=== PATIENT | male | born 1960 | race Caucasian/White ===

== ENCOUNTER 2020-08-19 14:05 | Inpatient (IN) ==
--- NOTE | 2020-08-19 14:21 | Emergency Department Note ---
History of Present Illness General Chief complaint: Vertigo Stated complaint: FELL HIT HEAD Time Seen by Provider: 08/19/20 14:07 History of Present Illness Maximum Pain Intensity: 2 This is a 59-year-old male who presents to the emergency department via private vehicle with complaints of "fell and hit head". Patient has a history of esophageal cancer currently on chemotherapy. Last chemotherapy treatment was August 12. Patient notes that secondary to this chemotherapy he notes d ecreased appetite, decreased taste, and also some associated dizziness and just not feeling himself. He notes that when he stands he feels dizzy. He has had laboratory studies done and most recent ANC reported to be 0.17. Patient notes earlier today around 9 AM he was inside his home, and was going to get into bed when he notes that he fell striking the left side of the head. No loss of consciousness. No headache. He does note some mild epigastric discomfort which is consistent with his previous discomfort felt to be related to esophageal cancer/treatment. Current discomfort in that area 09/22. He has been compliant with all medications. When asked if the dizziness is more of a room spinning versus passing out sensation he notes that when he goes to stand and ambulate he notes he cannot walk very far without feeling as though he is going to fall. Home Medications Medication Instructions Recorded Confirmed Type metformin 500 mg tablet 500 mg PO BID #60 tab 07/15/20 08/19/20 Rx apixaban 5 mg tablet 5 mg PO BID 07/23/20 08/19/20 History omeprazole 40 mg PO BID 08/19/20 08/19/20 History Allergies Allergy/AdvReac Type Severity Reaction Status Date / Time No Known Allergies Allergy Verified 08/19/20 15:49 Past Med/Surg History Medical History (Updated 08/19/20 @ 18:[address] DO) Esophageal cancer (04/27/20) 04/2020 GERD (gastroesophageal reflux disease) Hx of benign neoplasm of colon (12/08/14) Hx of type 2 diabetes mellitus (04/23/19) on no medications; diet controlled Surgical History H/O thumb surgery (~1983) left S/P cataract surgery (11/04/02) right and left Family History Mother Diabetes Father Asthma Denies family history of Ovarian cancer Prostate cancer Myocardial infarction Breast cancer Colorectal cancer Social History Smoking Status: Never smoker Second Hand Exposure: No; Hx Alcohol Use: Yes Hx Substance Use: No Preferred Language: Yoruba Communication Ability: Effective Visual Impairment: No Limitations Hearing Ability: Normal Public Health Aides Teacher Required: No Beliefs That Will Affect Care: None marital status: Current Living Situation: Spouse current occupational status: employed 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 [employer] How many Children do You have: 3 How many Children do You have Comment: daughter Tahmina, employed @ [employer] Feels Safe at Home: Yes Childhood Exposure to Second-Hand Smoke: No Diet Comment: mechanical soft, bland caffeine: Yes during the past year weight has: decreased > 10 lbs Dental Care, Regularly: Yes Physical Activity Frequency: Daily Seatbelt Use: always Sunscreen Use: No Assistive Devices: Glasses Review of Systems A total of 10 systems reviewed and were otherwise negative Physical Exam Vital Signs Vital Signs - 24 hr 08/19/20 14:12 08/19/20 14:50 08/19/20 15:00 Temperature 37.1 C Temperature Source Oral Pulse Rate 86 143 H Pulse Rate [Apical] Pulse Rate [Right Finger] 155 H Pulse Rate from SpO2 Sensor Pulse Rhythm [Apical] Pulse Strength [Apical] Respiratory Rate 22 22 Respiratory Effort / Characteristics Non-Labored Respiratory Depth Normal Respiratory Pattern Regular Blood Pressure 101/76 71/59 L Blood Pressure [Right Arm] 88/57 L Blood Pressure Mean 84 64 Blood Pressure Mean [Right Arm] 67 Blood Pressure Position Lying Blood Pressure Position [Right Arm] Pulse Oximetry 97 Oxygen Delivery Method Room Air Room Air Sepsis Recent Fever Within 48 Hours No Sepsis New/Unexplained Change in Mental Status No Sepsis Action Taken by Nursing No Action Required 08/19/20 15:09 08/19/20 15:10 08/19/20 15:15 Temperature Temperature Source Pulse Rate 94 H 165 H 112 H Pulse Rate [Apical] Pulse Rate [Right Finger] Pulse Rate from SpO2 Sensor 94 H 102 H Pulse Rhythm [Apical] Pulse Strength [Apical] Respiratory Rate 17 24 22 Respiratory Effort / Characteristics Respiratory Depth Respiratory Pattern Blood Pressure 81/64 L Blood Pressure [Right Arm] Blood Pressure Mean 73 Blood Pressure Mean [Right Arm] Blood Pressure Position Blood Pressure Position [Right Arm] Pulse Oximetry 96 100 Oxygen Delivery Method Room Air Room Air Room Air Sepsis Recent Fever Within 48 Hours Sepsis New/Unexplained Change in Mental Status Sepsis Action Taken by Nursing 08/19/20 15:16 08/19/20 15:20 08/19/20 15:30 Temperature Temperature Source Pulse Rate 92 H 106 H 108 H Pulse Rate [Apical] Pulse Rate [Right Finger] Pulse Rate from SpO2 Sensor 93 H 100 H 94 H Pulse Rhythm [Apical] Pulse Strength [Apical] Respiratory Rate 23 21 17 Respiratory Effort / Characteristics Respiratory Depth Respiratory Pattern Blood Pressure 90/67 L Blood Pressure [Right Arm] Blood Pressure Mean 69 Blood Pressure Mean [Right Arm] Blood Pressure Position Blood Pressure Position [Right Arm] Pulse Oximetry 100 99 99 Oxygen Delivery Method Room Air Room Air Room Air Sepsis Recent Fever Within 48 Hours Sepsis New/Unexplained Change in Mental Status Sepsis Action Taken by Nursing 08/19/20 15:40 08/19/20 15:45 08/19/20 15:50 Temperature Temperature Source Pulse Rate 101 H 113 H 123 H Pulse Rate [Apical] Pulse Rate [Right Finger] Pulse Rate from SpO2 Sensor 107 H 109 H 114 H Pulse Rhythm [Apical] Pulse Strength [Apical] Respiratory Rate 15 18 27 H Respiratory Effort / Characteristics Respiratory Depth Respiratory Pattern Blood Pressure 81/61 L Blood Pressure [Right Arm] Blood Pressure Mean 72 Blood Pressure Mean [Right Arm] Blood Pressure Position Blood Pressure Position [Right Arm] Pulse Oximetry 99 100 94 Oxygen Delivery Method Room Air Room Air Room Air Sepsis Recent Fever Within 48 Hours Sepsis New/Unexplained Change in Mental Status Sepsis Action Taken by Nursing 08/19/20 16:00 08/19/20 16:01 08/19/20 16:10 Temperature Temperature Source Pulse Rate 115 H 109 H 114 H Pulse Rate [Apical] Pulse Rate [Right Finger] Pulse Rate from SpO2 Sensor 107 H 97 H 98 H Pulse Rhythm [Apical] Pulse Strength [Apical] Respiratory Rate 20 18 18 Respiratory Effort / Characteristics Respiratory Depth Respiratory Pattern Blood Pressure 81/61 L Blood Pressure [Right Arm] Blood Pressure Mean 64 Blood Pressure Mean [Right Arm] Blood Pressure Position Blood Pressure Position [Right Arm] Pulse Oximetry 98 100 98 Oxygen Delivery Method Room Air Room Air Room Air Sepsis Recent Fever Within 48 Hours Sepsis New/Unexplained Change in Mental Status Sepsis Action Taken by Nursing 08/19/20 16:15 08/19/20 16:20 08/19/20 16:28 Temperature Temperature Source Pulse Rate 106 H 142 H 110 H Pulse Rate [Apical] Pulse Rate [Right Finger] Pulse Rate from SpO2 Sensor 109 H 115 H 107 H Pulse Rhythm [Apical] Pulse Strength [Apical] Respiratory Rate 19 20 22 Respiratory Effort / Characteristics Respiratory Depth Respiratory Pattern Blood Pressure 77/61 L 84/67 L Blood Pressure [Right Arm] Blood Pressure Mean 65 77 Blood Pressure Mean [Right Arm] Blood Pressure Position Blood Pressure Position [Right Arm] Pulse Oximetry 97 98 99 Oxygen Delivery Method Room Air Room Air Room Air Sepsis Recent Fever Within 48 Hours Sepsis New/Unexplained Change in Mental Status Sepsis Action Taken by Nursing 08/19/20 16:30 08/19/20 16:31 08/19/20 16:40 Temperature Temperature Source Pulse Rate 113 H 111 H 112 H Pulse Rate [Apical] Pulse Rate [Right Finger] Pulse Rate from SpO2 Sensor 115 H 103 H 103 H Pulse Rhythm [Apical] Pulse Strength [Apical] Respiratory Rate 19 20 18 Respiratory Effort / Characteristics Respiratory Depth Respiratory Pattern Blood Pressure 89/67 L Blood Pressure [Right Arm] Blood Pressure Mean 70 Blood Pressure Mean [Right Arm] Blood Pressure Position Blood Pressure Position [Right Arm] Pulse Oximetry 98 99 97 Oxygen Delivery Method Room Air Room Air Room Air Sepsis Recent Fever Within 48 Hours Sepsis New/Unexplained Change in Mental Status Sepsis Action Taken by Nursing 08/19/20 16:45 08/19/20 16:58 08/19/20 17:00 Temperature Temperature Source Pulse Rate 107 H 130 H 114 H Pulse Rate [Apical] Pulse Rate [Right Finger] Pulse Rate from SpO2 Sensor 99 H 98 H Pulse Rhythm [Apical] Pulse Strength [Apical] Respiratory Rate 18 19 20 Respiratory Effort / Characteristics Respiratory Depth Respiratory Pattern Blood Pressure 82/58 L 98/63 L Blood Pressure [Right Arm] Blood Pressure Mean 71 67 Blood Pressure Mean [Right Arm] Blood Pressure Position Blood Pressure Position [Right Arm] Pulse Oximetry 99 99 Oxygen Delivery Method Room Air Room Air Room Air Sepsis Recent Fever Within 48 Hours Sepsis New/Unexplained Change in Mental Status Sepsis Action Taken by Nursing 08/19/20 17:01 08/19/20 17:10 08/19/20 17:15 Temperature Temperature Source Pulse Rate 118 H 122 H 118 H Pulse Rate [Apical] Pulse Rate [Right Finger] Pulse Rate from SpO2 Sensor 104 H 105 H 106 H Pulse Rhythm [Apical] Pulse Strength [Apical] Respiratory Rate 18 18 18 Respiratory Effort / Characteristics Respiratory Depth Respiratory Pattern Blood Pressure 83/61 L Blood Pressure [Right Arm] Blood Pressure Mean 65 Blood Pressure Mean [Right Arm] Blood Pressure Position Blood Pressure Position [Right Arm] Pulse Oximetry 98 99 98 Oxygen Delivery Method Room Air Room Air Room Air Sepsis Recent Fever Within 48 Hours Sepsis New/Unexplained Change in Mental Status Sepsis Action Taken by Nursing 08/19/20 17:20 08/19/20 17:30 08/19/20 17:31 Temperature Temperature Source Pulse Rate 115 H 122 H 122 H Pulse Rate [Apical] Pulse Rate [Right Finger] Pulse Rate from SpO2 Sensor 116 H 104 H 115 H Pulse Rhythm [Apical] Pulse Strength [Apical] Respiratory Rate 18 17 20 Respiratory Effort / Characteristics Respiratory Depth Respiratory Pattern Blood Pressure 85/60 L Blood Pressure [Right Arm] Blood Pressure Mean 64 Blood Pressure Mean [Right Arm] Blood Pressure Position Blood Pressure Position [Right Arm] Pulse Oximetry 99 100 97 Oxygen Delivery Method Room Air Room Air Room Air Sepsis Recent Fever Within 48 Hours Sepsis New/Unexplained Change in Mental Status Sepsis Action Taken by Nursing 08/19/20 17:40 08/19/20 17:43 08/19/20 17:44 Temperature Temperature Source Pulse Rate 125 H 121 H Pulse Rate [Apical] 115 H Pulse Rate [Right Finger] Pulse Rate from SpO2 Sensor 118 H 119 H Pulse Rhythm [Apical] Regular Pulse Strength [Apical] Respiratory Rate 22 25 H 14 Respiratory Effort / Characteristics Non-Labored Spontaneous Respiratory Depth Normal Respiratory Pattern Regular Blood Pressure 101/69 Blood Pressure [Right Arm] 101/69 Blood Pressure Mean 85 Blood Pressure Mean [Right Arm] 79 Blood Pressure Position Blood Pressure Position [Right Arm] Lying Pulse Oximetry 99 98 98 Oxygen Delivery Method Room Air Room Air Room Air Sepsis Recent Fever Within 48 Hours Sepsis New/Unexplained Change in Mental Status Sepsis Action Taken by Nursing 08/19/20 17:46 08/19/20 17:50 08/19/20 17:58 Temperature Temperature Source Pulse Rate 131 H 117 H 119 H Pulse Rate [Apical] Pulse Rate [Right Finger] Pulse Rate from SpO2 Sensor 135 H 116 H 109 H Pulse Rhythm [Apical] Pulse Strength [Apical] Respiratory Rate 20 14 23 Respiratory Effort / Characteristics Respiratory Depth Respiratory Pattern Blood Pressure 99/82 L 82/70 L Blood Pressure [Right Arm] Blood Pressure Mean 91 77 Blood Pressure Mean [Right Arm] Blood Pressure Position Blood Pressure Position [Right Arm] Pulse Oximetry 93 100 97 Oxygen Delivery Method Room Air Room Air Room Air Sepsis Recent Fever Within 48 Hours Sepsis New/Unexplained Change in Mental Status Sepsis Action Taken by Nursing 08/19/20 18:00 08/19/20 18:01 08/19/20 18:10 Temperature Temperature Source Pulse Rate 109 H 108 H 108 H Pulse Rate [Apical] Pulse Rate [Right Finger] Pulse Rate from SpO2 Sensor 106 H 104 H 116 H Pulse Rhythm [Apical] Pulse Strength [Apical] Respiratory Rate 21 22 18 Respiratory Effort / Characteristics Respiratory Depth Respiratory Pattern Blood Pressure 90/67 L Blood Pressure [Right Arm] Blood Pressure Mean 72 Blood Pressure Mean [Right Arm] Blood Pressure Position Blood Pressure Position [Right Arm] Pulse Oximetry 99 99 98 Oxygen Delivery Method Room Air Room Air Room Air Sepsis Recent Fever Within 48 Hours Sepsis New/Unexplained Change in Mental Status Sepsis Action Taken by Nursing 08/19/20 18:15 08/19/20 18:20 08/19/20 18:30 Temperature Temperature Source Pulse Rate 108 H 109 H 112 H Pulse Rate [Apical] Pulse Rate [Right Finger] Pulse Rate from SpO2 Sensor 109 H 101 H 90 Pulse Rhythm [Apical] Pulse Strength [Apical] Respiratory Rate 19 19 20 Respiratory Effort / Characteristics Respiratory Depth Respiratory Pattern Blood Pressure 100/64 94/63 L Blood Pressure [Right Arm] Blood Pressure Mean 68 76 Blood Pressure Mean [Right Arm] Blood Pressure Position Blood Pressure Position [Right Arm] Pulse Oximetry 99 98 99 Oxygen Delivery Method Room Air Room Air Room Air Sepsis Recent Fever Within 48 Hours Sepsis New/Unexplained Change in Mental Status Sepsis Action Taken by Nursing 08/19/20 18:31 08/19/20 18:32 08/19/20 18:40 Temperature Temperature Source Pulse Rate 107 H 113 H Pulse Rate [Apical] 104 H Pulse Rate [Right Finger] Pulse Rate from SpO2 Sensor 107 H 107 H Pulse Rhythm [Apical] Irregular Pulse Strength [Apical] Normal Respiratory Rate 18 16 18 Respiratory Effort / Characteristics Non-Labored Respiratory Depth Normal Respiratory Pattern Regular Blood Pressure Blood Pressure [Right Arm] 98/63 L Blood Pressure Mean Blood Pressure Mean [Right Arm] 74 Blood Pressure Position Blood Pressure Position [Right Arm] Lying Pulse Oximetry 100 98 99 Oxygen Delivery Method Room Air Room Air Room Air Sepsis Recent Fever Within 48 Hours Sepsis New/Unexplained Change in Mental Status Sepsis Action Taken by Nursing 08/19/20 18:45 08/19/20 18:50 08/19/20 19:00 Temperature Temperature Source Pulse Rate 99 H 100 H 104 H Pulse Rate [Apical] Pulse Rate [Right Finger] Pulse Rate from SpO2 Sensor 93 H 103 H 107 H Pulse Rhythm [Apical] Pulse Strength [Apical] Respiratory Rate 18 18 19 Respiratory Effort / Characteristics Respiratory Depth Respiratory Pattern Blood Pressure 107/59 L 95/64 L Blood Pressure [Right Arm] Blood Pressure Mean 80 75 Blood Pressure Mean [Right Arm] Blood Pressure Position Blood Pressure Position [Right Arm] Pulse Oximetry 98 99 99 Oxygen Delivery Method Room Air Room Air Room Air Sepsis Recent Fever Within 48 Hours Sepsis New/Unexplained Change in Mental Status Sepsis Action Taken by Nursing 08/19/20 19:01 08/19/20 19:10 08/19/20 19:15 Temperature Temperature Source Pulse Rate 107 H 109 H 117 H Pulse Rate [Apical] Pulse Rate [Right Finger] Pulse Rate from SpO2 Sensor 99 H 115 H 110 H Pulse Rhythm [Apical] Pulse Strength [Apical] Respiratory Rate 18 18 18 Respiratory Effort / Characteristics Respiratory Depth Respiratory Pattern Blood Pressure 95/61 L Blood Pressure [Right Arm] Blood Pressure Mean 64 Blood Pressure Mean [Right Arm] Blood Pressure Position Blood Pressure Position [Right Arm] Pulse Oximetry 98 98 98 Oxygen Delivery Method Room Air Room Air Room Air Sepsis Recent Fever Within 48 Hours Sepsis New/Unexplained Change in Mental Status Sepsis Action Taken by Nursing 08/19/20 19:20 08/19/20 19:30 08/19/20 19:31 Temperature Temperature Source Pulse Rate 121 H 110 H 118 H Pulse Rate [Apical] Pulse Rate [Right Finger] Pulse Rate from SpO2 Sensor 113 H 120 H 108 H Pulse Rhythm [Apical] Pulse Strength [Apical] Respiratory Rate 24 18 19 Respiratory Effort / Characteristics Respiratory Depth Respiratory Pattern Blood Pressure 82/68 L Blood Pressure [Right Arm] Blood Pressure Mean 69 Blood Pressure Mean [Right Arm] Blood Pressure Position Blood Pressure Position [Right Arm] Pulse Oximetry 94 99 98 Oxygen Delivery Method Room Air Room Air Room Air Sepsis Recent Fever Within 48 Hours Sepsis New/Unexplained Change in Mental Status Sepsis Action Taken by Nursing 08/19/20 19:40 08/19/20 19:42 08/19/20 19:45 Temperature Temperature Source Pulse Rate 118 H 112 H 123 H Pulse Rate [Apical] Pulse Rate [Right Finger] Pulse Rate from SpO2 Sensor 119 H 112 H 108 H Pulse Rhythm [Apical] Pulse Strength [Apical] Respiratory Rate 22 20 19 Respiratory Effort / Characteristics Respiratory Depth Respiratory Pattern Blood Pressure 87/65 L 114/67 Blood Pressure [Right Arm] Blood Pressure Mean 69 76 Blood Pressure Mean [Right Arm] Blood Pressure Position Blood Pressure Position [Right Arm] Pulse Oximetry 99 98 99 Oxygen Delivery Method Room Air Room Air Room Air Sepsis Recent Fever Within 48 Hours Sepsis New/Unexplained Change in Mental Status Sepsis Action Taken by Nursing 08/19/20 19:50 08/19/20 20:00 08/19/20 20:01 Temperature Temperature Source Pulse Rate 115 H 107 H 108 H Pulse Rate [Apical] Pulse Rate [Right Finger] Pulse Rate from SpO2 Sensor 113 H 110 H 104 H Pulse Rhythm [Apical] Pulse Strength [Apical] Respiratory Rate 19 14 20 Respiratory Effort / Characteristics Respiratory Depth Respiratory Pattern Blood Pressure 94/57 L Blood Pressure [Right Arm] Blood Pressure Mean 77 Blood Pressure Mean [Right Arm] Blood Pressure Position Blood Pressure Position [Right Arm] Pulse Oximetry 100 99 99 Oxygen Delivery Method Room Air Room Air Room Air Sepsis Recent Fever Within 48 Hours Sepsis New/Unexplained Change in Mental Status Sepsis Action Taken by Nursing 08/19/20 20:10 08/19/20 20:15 08/19/20 20:20 Temperature Temperature Source Pulse Rate 110 H 108 H 105 H Pulse Rate [Apical] Pulse Rate [Right Finger] Pulse Rate from SpO2 Sensor 106 H 104 H 101 H Pulse Rhythm [Apical] Pulse Strength [Apical] Respiratory Rate 19 20 18 Respiratory Effort / Characteristics Respiratory Depth Respiratory Pattern Blood Pressure 84/62 L Blood Pressure [Right Arm] Blood Pressure Mean 64 Blood Pressure Mean [Right Arm] Blood Pressure Position Blood Pressure Position [Right Arm] Pulse Oximetry 99 99 99 Oxygen Delivery Method Room Air Room Air Room Air Sepsis Recent Fever Within 48 Hours Sepsis New/Unexplained Change in Mental Status Sepsis Action Taken by Nursing 08/19/20 20:30 08/19/20 20:31 08/19/20 20:40 Temperature Temperature Source Pulse Rate 107 H 108 H 116 H Pulse Rate [Apical] Pulse Rate [Right Finger] Pulse Rate from SpO2 Sensor 103 H 108 H 113 H Pulse Rhythm [Apical] Pulse Strength [Apical] Respiratory Rate 21 18 19 Respiratory Effort / Characteristics Respiratory Depth Respiratory Pattern Blood Pressure 94/63 L Blood Pressure [Right Arm] Blood Pressure Mean 70 Blood Pressure Mean [Right Arm] Blood Pressure Position Blood Pressure Position [Right Arm] Pulse Oximetry 98 98 99 Oxygen Delivery Method Room Air Room Air Room Air Sepsis Recent Fever Within 48 Hours Sepsis New/Unexplained Change in Mental Status Sepsis Action Taken by Nursing 08/19/20 20:45 08/19/20 20:50 08/19/20 21:00 Temperature Temperature Source Pulse Rate 111 H 107 H 112 H Pulse Rate [Apical] Pulse Rate [Right Finger] Pulse Rate from SpO2 Sensor 108 H 107 H 108 H Pulse Rhythm [Apical] Pulse Strength [Apical] Respiratory Rate 20 19 20 Respiratory Effort / Characteristics Respiratory Depth Respiratory Pattern Blood Pressure 92/65 L 92/64 L Blood Pressure [Right Arm] Blood Pressure Mean 68 69 Blood Pressure Mean [Right Arm] Blood Pressure Position Blood Pressure Position [Right Arm] Pulse Oximetry 99 98 98 Oxygen Delivery Method Room Air Room Air Room Air Sepsis Recent Fever Within 48 Hours Sepsis New/Unexplained Change in Mental Status Sepsis Action Taken by Nursing 08/19/20 21:01 08/19/20 21:10 08/19/20 21:15 Temperature Temperature Source Pulse Rate 108 H 102 H 109 H Pulse Rate [Apical] Pulse Rate [Right Finger] Pulse Rate from SpO2 Sensor 100 H 107 H 110 H Pulse Rhythm [Apical] Pulse Strength [Apical] Respiratory Rate 18 19 19 Respiratory Effort / Characteristics Respiratory Depth Respiratory Pattern Blood Pressure 90/60 L Blood Pressure [Right Arm] Blood Pressure Mean 73 Blood Pressure Mean [Right Arm] Blood Pressure Position Blood Pressure Position [Right Arm] Pulse Oximetry 100 98 100 Oxygen Delivery Method Room Air Room Air Room Air Sepsis Recent Fever Within 48 Hours Sepsis New/Unexplained Change in Mental Status Sepsis Action Taken by Nursing 08/19/20 21:20 08/19/20 21:30 08/19/20 21:31 Temperature Temperature Source Pulse Rate 113 H 106 H 111 H Pulse Rate [Apical] Pulse Rate [Right Finger] Pulse Rate from SpO2 Sensor 116 H 116 H 101 H Pulse Rhythm [Apical] Pulse Strength [Apical] Respiratory Rate 18 17 18 Respiratory Effort / Characteristics Respiratory Depth Respiratory Pattern Blood Pressure 97/64 L Blood Pressure [Right Arm] Blood Pressure Mean 68 Blood Pressure Mean [Right Arm] Blood Pressure Position Blood Pressure Position [Right Arm] Pulse Oximetry 99 99 99 Oxygen Delivery Method Room Air Room Air Room Air Sepsis Recent Fever Within 48 Hours Sepsis New/Unexplained Change in Mental Status Sepsis Action Taken by Nursing 08/19/20 21:40 08/19/20 21:45 08/19/20 21:50 Temperature Temperature Source Pulse Rate 108 H 103 H 115 H Pulse Rate [Apical] Pulse Rate [Right Finger] Pulse Rate from SpO2 Sensor 106 H 104 H 111 H Pulse Rhythm [Apical] Pulse Strength [Apical] Respiratory Rate 17 21 18 Respiratory Effort / Characteristics Respiratory Depth Respiratory Pattern Blood Pressure 87/69 L Blood Pressure [Right Arm] Blood Pressure Mean 71 Blood Pressure Mean [Right Arm] Blood Pressure Position Blood Pressure Position [Right Arm] Pulse Oximetry 98 99 98 Oxygen Delivery Method Room Air Room Air Room Air Sepsis Recent Fever Within 48 Hours Sepsis New/Unexplained Change in Mental Status Sepsis Action Taken by Nursing 08/19/20 22:00 08/19/20 22:01 08/19/20 22:10 Temperature Temperature Source Pulse Rate 105 H 117 H 104 H Pulse Rate [Apical] Pulse Rate [Right Finger] Pulse Rate from SpO2 Sensor 101 H 106 H 108 H Pulse Rhythm [Apical] Pulse Strength [Apical] Respiratory Rate 19 20 19 Respiratory Effort / Characteristics Respiratory Depth Respiratory Pattern Blood Pressure 96/67 L Blood Pressure [Right Arm] Blood Pressure Mean 71 Blood Pressure Mean [Right Arm] Blood Pressure Position Blood Pressure Position [Right Arm] Pulse Oximetry 99 99 96 Oxygen Delivery Method Room Air Room Air Room Air Sepsis Recent Fever Within 48 Hours Sepsis New/Unexplained Change in Mental Status Sepsis Action Taken by Nursing 08/19/20 22:15 08/19/20 22:20 Temperature Temperature Source Pulse Rate 108 H 119 H Pulse Rate [Apical] Pulse Rate [Right Finger] Pulse Rate from SpO2 Sensor 111 H 98 H Pulse Rhythm [Apical] Pulse Strength [Apical] Respiratory Rate 19 20 Respiratory Effort / Characteristics Respiratory Depth Respiratory Pattern Blood Pressure 90/64 L Blood Pressure [Right Arm] Blood Pressure Mean 71 Blood Pressure Mean [Right Arm] Blood Pressure Position Blood Pressure Position [Right Arm] Pulse Oximetry 98 97 Oxygen Delivery Method Room Air Room Air Sepsis Recent Fever Within 48 Hours Sepsis New/Unexplained Change in Mental Status Sepsis Action Taken by Nursing VITAL SIGNS - Vital signs and nursing notes were reviewed. Stable and afebrile. GENERAL -59-year-old male appearing his stated age who is in no acute distress. Communicates well with provider and answers questions appropriately. SKIN -there is eczema-like changes to the dorsum of the left hand, wrist and forearm. This does not appear to be new and appears chronic with some mild skin flaking. Small abrasion to the left side of the head. HEAD - NC/AT. No taylor signs or raccoon's eyes. EYES - PERRL with EOMI bilaterally. Sclera anicteric. Palpebral conjunctiva pink and moist with no injection noted. EARS - No deformities of external structures noted on gross examination bilaterally. No pain elicited with palpation of the tragus bilaterally. External auditory canals without discharge or otorrhea. Tympanic membranes pearly cam[place] without retraction or bulging. No fluid or purulent material visualized behind the TM. Handle of malleus, umbo, cone of light, pars tensa/flaccid all easily visualized. NOSE - Midline and without cyanosis. No epistaxis or purulent drainage noted. Septum midline without deviation or septal hematoma noted. MOUTH/OROPHARYNX - Without perioral cyanosis. Buccal mucosa pink and moist and without leukoplakia. Tongue midline with equal elevation of palate bilaterally. No tonsillar hypertrophy, erythema, or exudates noted. Good dentition noted. NECK - Neck with FROM. No C-spine tenderness. No nuchal rigidity. LUNGS - Chest wall symmetric without accessory muscle use, intercostals retractions, or central cyanosis. Normal vesicular breath sounds CTA B/L. No wheezes, rales, or rhonchi appreciated. CARDIAC - RRR with S1/S2. No murmur, rubs, or gallops appreciated. ABDOMEN - Abdominal contour normal without pulsations or visible masses. BS normoactive all four quadrants. No tenderness, palpable masses, hepatosplenomegaly, or ascites noted. EXTREMITIES - No clubbing or peripheral cyanosis. No pretibial edema present. +5/5 strength noted in UE/LE bilaterally. NEUROLOGIC - Cranial nerves II through XII grossly intact. PSYCH - A&Ox3 and cooperates fully with examiner. Pt is very pleasant and interacts well with examiner. Course Administered Medications Apixaban (Apixaban 5 Mg Tablet) 5 mg PO BID [facility] Stop: 09/18/20 20:59 Last Admin: 08/19/20 22:46 Dose: 5 mg Documented by: [id number] Diltiazem HCl 125 mg/ Dextrose 125 mls @ 5 mls/hr IV .Q24H [facility]; Protocol Stop: 09/18/20 16:44 Last Admin: 08/19/20 17:43 Dose: 5 mg/hr, 5 mls/hr Documented by: [id number] Cosigned by: [id number] Discontinued Medications Diltiazem HCl (Diltiazem Hcl 5 Mg/Ml 5 Ml Vial) 20 mg IV NOW STA Stop: 08/19/20 15:02 Last Admin: 08/19/20 15:12 Dose: 20 mg Documented by: [id number] Cosigned by: [id number] Sodium Chloride (Nss 1000ml) 1,000 mls @ 500 mls/hr IV .Q2H MARIA Stop: 08/19/20 16:29 Last Infusion: 08/19/20 16:57 Dose: 0 mls/hr Documented by: [id number] Admin: 08/19/20 14:50 Dose: 500 mls/hr Documented by: [id number] Sodium Chloride (Nss 1000ml) 1,000 mls @ 999 mls/hr IV .Q1H1M MARIA Stop: 08/19/20 16:45 Last Infusion: 08/19/20 19:29 Dose: 0 mls/hr Documented by: [id number] Admin: 08/19/20 16:56 Dose: 999 mls/hr Documented by: [id number] Magnesium Sulfate/Dextrose (Magnesium Sulfate / D5w) 1 gm in 100 mls @ 50 mls/hr IV Q2H STA Stop: 08/19/20 20:03 Last Admin: 08/19/20 20:57 Dose: 50 mls/hr Documented by: [id number] Sodium Chloride (Nss 1000ml) 1,000 mls @ 999 mls/hr IV .Q1H1M ONE Stop: 08/19/20 20:43 Last Infusion: 08/19/20 22:17 Dose: 0 mls/hr Documented by: [id number] Admin: 08/19/20 21:01 Dose: 999 mls/hr Documented by: [id number] Magnesium Sulfate/Dextrose (Magnesium Sulfate / D5w) 1 gm in 100 mls @ 50 mls/hr IV Q2H STA Stop: 08/19/20 22:23 Last Admin: 08/19/20 21:00 Dose: Not Given Documented by: [id number] Miscellaneous (Stat Iv Infusion Titration Per Protocol) 1 ea N/A NOW STA Stop: 08/19/20 16:46 Last Admin: 08/19/20 21:01 Dose: 1 ea Documented by: [id number] Medical Decision Making Laboratory Data Result diagrams: 08/19/20 14:30 08/19/20 14:30 Lab Results 08/19/20 08/19/20 08/19/20 Range/Units 14:30 14:30 16:28 WBC 1.95 L (4.8-10.8) K/uL RBC 3.38 L (4.7-6.1) M/uL Hgb 9.0 L (14.0-18.0) g/dL Hct 27.0 L (42-52) % MCV 79.9 L (80-100) fL MCH 26.6 (25-34) pg MCHC 33.3 (32-36) g/dL RDW Std Deviation 46.3 (36.4-46.3) fL RDW Coeff of Jarvis 15.9 H (11.5-14.5) % Plt Count 103 L (130-400) K/uL MPV 10.3 (7.4-10.4) fL Absolute Nucleated RBC 0.03 H (0-0) K/uL Nucleated RBC % (auto) 1.5 % Neutrophils % (Manual) 38.6 % Band Neutrophils % 0.0 % Lymphocytes % (Manual) 27.3 % Prolymphocyte % 0.0 % Reactive Lymphs % (Man) 0.0 % Monocytes % (Manual) 31.8 % Basophils % (Manual) 2.3 % Plasma Cell % (Manual) 0.0 % Neutrophils # (Manual) 0.75 L (1.4-6.5) K/uL Total Absolute Neuts 0.75 L* (1.4-6.5) K/uL Lymphocytes # (Manual) 0.53 L (1.2-3.4) K/uL Total Abs Lymphocytes 0.53 L (1.2-3.4) K/uL Monocytes # (Manual) 0.62 H (0.11-0.59) K/uL Basophils # (Manual) 0.04 (0-0.2) K/uL Large Granular Lymphs 0.0 % Dohle Bodies 2+ Giant Platelets 2+ Sodium 129 L (136-145) mmol/L Potassium 3.5 (3.5-5.1) mmol/L Chloride 95 L (98-107) mmol/L Carbon Dioxide 23 (21-32) mmol/L Anion Gap 11.0 (3-11) BUN 4 L (7-18) mg/dl Creatinine 0.80 (0.6-1.4) mg/dl Est Cr Clr Drug Dosing Not Reportable Est GFR ( Amer) 114.1 Est GFR (Non-Af Amer) 98.5 BUN/Creatinine Ratio 5.4 L (10-20) Glucose 193 H (70-99) mg/dl Calcium 8.4 L (8.5-10.1) mg/dl Magnesium 1.4 L (1.8-2.4) mg/dl Total Bilirubin 0.9 (0.2-1) mg/dl AST 12 L (15-37) U/L ALT 18 (12-78) U/L Alkaline Phosphatase 82 (45-117) U/L Troponin I < 0.015 (0-0.045) ng/ml Total Protein 5.4 L (6.4-8.2) gm/dl Albumin 2.1 L (3.4-5.0) gm/dl Globulin 3.3 (2.5-4.0) gm/dl Albumin/Globulin Ratio 0.6 L (0.9-2) TSH 1.080 (0.300-4.500) uIu/ml Urine Color Yellow Urine Appearance Clear (Clear) Urine pH 7.0 (4.5-7.5) Ur Specific [place] 1.008 (1.000-1.030) Urine Protein Trace H (Negative) Urine Glucose (UA) Trace H (Negative) Urine Ketones Negative (Negative) Urine Blood Negative (Negative) Urine Nitrite Negative (Negative) Urine Bilirubin Negative (Negative) Urine Urobilinogen Negative (Negative) Ur Leukocyte Esterase Negative (Negative) Urine WBC (Auto) 1-5 (0-5) /hpf Urine RBC (Auto) 0-4 (0-4) /hpf U Hyaline Cast (Auto) 0 (0-5) /lpf U Epithel Cells (Auto) >30 H (0-5) /lpf Urine Bacteria (Auto) Negative (Negative) Ur Renal Epithelial Cell Not Reportable SARS-CoV-2 Ag (Rapid) (Negative) 08/19/20 Range/Units 20:40 WBC (4.8-10.8) K/uL RBC (4.7-6.1) M/uL Hgb (14.0-18.0) g/dL Hct (42-52) % MCV (80-100) fL MCH (25-34) pg MCHC (32-36) g/dL RDW Std Deviation (36.4-46.3) fL RDW Coeff of Jarvis (11.5-14.5) % Plt Count (130-400) K/uL MPV (7.4-10.4) fL Absolute Nucleated RBC (0-0) K/uL Nucleated RBC % (auto) % Neutrophils % (Manual) % Band Neutrophils % % Lymphocytes % (Manual) % Prolymphocyte % % Reactive Lymphs % (Man) % Monocytes % (Manual) % Basophils % (Manual) % Plasma Cell % (Manual) % Neutrophils # (Manual) (1.4-6.5) K/uL Total Absolute Neuts (1.4-6.5) K/uL Lymphocytes # (Manual) (1.2-3.4) K/uL Total Abs Lymphocytes (1.2-3.4) K/uL Monocytes # (Manual) (0.11-0.59) K/uL Basophils # (Manual) (0-0.2) K/uL Large Granular Lymphs % Dohle Bodies Giant Platelets Sodium (136-145) mmol/L Potassium (3.5-5.1) mmol/L Chloride (98-107) mmol/L Carbon Dioxide (21-32) mmol/L Anion Gap (3-11) BUN (7-18) mg/dl Creatinine (0.6-1.4) mg/dl Est Cr Clr Drug Dosing Est GFR ( Amer) Est GFR (Non-Af Amer) BUN/Creatinine Ratio (10-20) Glucose (70-99) mg/dl Calcium (8.5-10.1) mg/dl Magnesium (1.8-2.4) mg/dl Total Bilirubin (0.2-1) mg/dl AST (15-37) U/L ALT (12-78) U/L Alkaline Phosphatase (45-117) U/L Troponin I (0-0.045) ng/ml Total Protein (6.4-8.2) gm/dl Albumin (3.4-5.0) gm/dl Globulin (2.5-4.0) gm/dl Albumin/Globulin Ratio (0.9-2) TSH (0.300-4.500) uIu/ml Urine Color Urine Appearance (Clear) Urine pH (4.5-7.5) Ur Specific [place] (1.000-1.030) Urine Protein (Negative) Urine Glucose (UA) (Negative) Urine Ketones (Negative) Urine Blood (Negative) Urine Nitrite (Negative) Urine Bilirubin (Negative) Urine Urobilinogen (Negative) Ur Leukocyte Esterase (Negative) Urine WBC (Auto) (0-5) /hpf Urine RBC (Auto) (0-4) /hpf U Hyaline Cast (Auto) (0-5) /lpf U Epithel Cells (Auto) (0-5) /lpf Urine Bacteria (Auto) (Negative) Ur Renal Epithelial Cell SARS-CoV-2 Ag (Rapid) Negative (Negative) Imaging Data Radiologist's Impression: CT SCAN OF THE BRAIN WITHOUT IV CONTRAST CLINICAL HISTORY: Fall. Dizziness. COMPARISON STUDY: No priors. TECHNIQUE: Unenhanced axial CT scan of the brain is performed from the vertex to the skull base. A dose lowering technique was utilized adhering to the prin ciples of ALA. CT DOSE: 1050.00 mGy.cm FINDINGS: Brain parenchyma: The brain parenchyma is normal in appearance. There is no hemorrhage, mass effect, or evidence of acute territorial ischemia by CT criteria. Camargo-white matter differentiation is preserved. No extra-axial fluid collection is seen. Ventricles, sulci, cisterns: Normal in configuration. Intracranial vasculature: There is atherosclerotic calcification of the cavernous carotid arteries. Calvarium: There is no depressed calvarial fracture. Sinuses and mastoids: The visualized paranasal sinuses are clear. The mastoid air cells are well pneumatized. Orbits: The bony orbits are grossly intact. There are bilateral ocular lens implants. IMPRESSION: There is no hemorrhage, mass effect, or evidence of acute territorial ischemia by CT criteria. ACT 112: Negative or not required by law. Electronically signed by: Porfirio Walker M.D. 08/19/2020 4:[address] cervical spine wo con CLINICAL HISTORY: 59 years-old Male with Fall, dizziness, head trauma, anticoagulated. Acute headache with dizziness status post fall. History of esophageal carcinoma. COMPARISON: Head CT of same day, PET CT 05/12/2020 TECHNIQUE: Multiple axial CT images of the cervical spine were obtained without contrast. A dose lowering technique was utilized adhering to the principles of ALARA. FINDINGS: There is moderate C5-C6 and moderate to severe C6-C7 disc space narrowing with associated spondylitic spurring and posterior disc osteophyte complex formations. Moderate to severe multilevel facet arthrosis. Grade 1 anterolisthesis C7 on T1 is likely secondary to chronic facet arthrosis. Multilevel foraminal narrowing. No acute fracture or subluxation. No prevertebral edema. Lung apices are clear. [place] air cells and middle ear cavities are clear. IMPRESSION: No acute fracture or subluxation. ACT 112: Negative or not required by law. The above report was generated using voice recognition software. It may contain grammatical, syntax or spelling errors. Electronically signed by: Ceasar Buckner M.D. 08/19/2020 5:07 PM XR chest 1V portable CLINICAL HISTORY: Fall, dizziness, head trauma, anticoagulated COMPARISON STUDY: 05/26/2020 FINDINGS: The heart is mildly enlarged. There is a left subclavian A-Port catheter. There is no failure. There is no focal pulmonary consolidation. There are no pleural effusions.[ IMPRESSION: No active disease in the chest. ACT 112: Negative or not required by law. Electronically signed by: Daniele Farris M.D. 08/19/2020 3:12 PM MDM Narrative Patient was seen and evaluated as above in room C3. Review was performed of andrew sing notes and vital signs. I did review pertinent previous visits and patient history. Patient was brought directly to the room, and bypassed the waiting room as we did not want him to be exposed any unnecessary illness given his current chemotherapy treatment and likely immune compromised state. After obtaining a thorough history and physical examination the above work up was performed. Patient presents to us today status post mechanical fall that occurred earlier today around 9 AM secondary to dizziness. I will note that the patient also notes he has been experiencing dizziness since yesterday. He believes this is related to his chemotherapy. He had a recent diagnosis of esophageal cancer this past year. On arrival the patient is nontoxic in appearance, he does have a small abrasion to the left side of the head and his vital signs were overall stable. On my initial examination and reviewing presentation vitals he appeared to be in normal sinus rhythm however EKG was performed and reevaluation revealed A. fib with RVR. EKG per my interpretation revealed atrial fibrillation with RVR at rate of 159 bpm. QTc 488. There is no definite ST elevation. Laboratory studies reveal pancytopenia with hemoglobin at 9 and white blood cell count 1.95 with ANC 0.75. Hyponatremia 129. No evidence of kidney failure. No evidence of liver failure. Troponin negative. Urinalysis does not suggest infection. Chest x-ray and CT scan head and C-spine were obtained given presentation and mechanism of injury. These were reassuringly negative for any acute process. Cardizem bolus provided. He responded well but the heart rate did gradually increase again and the pressure began to lessen. For this reason he was placed on a Cardizem drip. Pressure rebounded nicely. Do believe that further evaluation and management in inpatient setting is warranted. Case discussed with hospitalist. Please refer to further documentation regarding his stay. Patient aware of findings today and amenable to staying. Case was discussed with the attending physician. Patient was seen during the COVID- pandemic. An order was placed for continuous cardiac monitoring. The monitor shows a rate of 116 with A. fib I attest that I have personally reviewed the patient medication list. GCS: 15 In the evaluation and treatment of this patient the following differential diagnoses were entertained: MD, PE, pericarditis, costochondritis, arrhythmia, dehydration, TIA, CVA, among others. Impression & Plan Atrial fibrillation with rapid ventricular response, Dizziness, Fall, Head injury Discharge Plan Visit Data Chief Complaint: Vertigo Stated Complaint: FELL HIT HEAD ED Provider: Zachariah Villaseñor ED Midlevel Provider: Perez Lassiter Discharge Problem: Atrial fibrillation with rapid ventricular response, Dizziness, Fall, Head injury Forms Stand Alone Forms: My [facility]u Prescriptions Prescriptions: No Action metformin 500 mg tablet 500 mg PO BID Qty: 60 RF: 1 Eliquis 5 mg tablet 5 mg PO BID RF: 0 omeprazole 40 mg capsule,delayed release(DR/EC) 40 mg PO BID RF: 0 Referrals Referrals: Remedios Miranda DO [Primary Care Provider] -
[2020-08-19] MEDS ORDERED: SODIUM CHLORIDE 0.9% 1000ML 1,000 ML IV SCH ×2 (14:30→15:45)
[2020-08-19 14:40] LABS: Mean Corpuscular Hemoglobin 26.6 pg (25-34); Mean Corpuscular Hgb Conc 33.3 g/dL (32-36); Mean Corpuscular Volume 79.9 fL (80-100); Mean Platelet Volume 10.3 fL (7.4-10.4); Nucleated RBC # (auto) 0.03 K/uL (0-0); Nucleated RBC % (auto) 1.5 %; Platelet Count 103 K/uL (130-400); RDW Coefficient of Variation 15.9 % (11.5-14.5); RDW Standard Deviation 46.3 fL (36.4-46.3); Red Blood Count 3.38 M/uL (4.7-6.1); White Blood Count 1.95 K/uL (4.8-10.8)
[2020-08-19] MEDS ORDERED: dilTIAZem HCl 5 MG/ML 5 ML VIAL IV STA (15:01)
[2020-08-19 15:06] LABS: Alanine Aminotransferase 18 U/L (12-78); Albumin Level 2.1 gm/dl (3.4-5.0); Aspartate Aminotransferase 12 U/L (15-37); BUN Creatinine Ratio 5.4 (10-20); Blood Urea Nitrogen 4 mg/dl (7-18); Calcium 8.4 mg/dl (8.5-10.1); Carbon Dioxide 23 mmol/L (21-32); Chloride 95 mmol/L (98-107); Est GFR (African American) 114.1; Est GFR (Non-African American) 98.5; Glucose 193 mg/dl (70-99); Magnesium 1.4 mg/dl (1.8-2.4); Potassium 3.5 mmol/L (3.5-5.1); Sodium 129 mmol/L (136-145)
[2020-08-19 15:13] LABS: Dohle Bodies 2+; Giant Platelets 2+
[2020-08-19 15:14] LABS: ALC (manual) 0.53 K/uL (1.2-3.4); Basophils # (manual) 0.04 K/uL (0-0.2); Basophils % (manual) 2.3 %; Lymphocytes # (manual) 0.53 K/uL (1.2-3.4); Lymphocytes % (manual) 27.3 %; Monocytes # (manual) 0.62 K/uL (0.11-0.59); Monocytes % (manual) 31.8 %; Neutrophils # (manual) 0.75 K/uL (1.4-6.5); Neutrophils % (manual) 38.6 %
--- NOTE | 2020-08-19 15:14 | XRay Report ---
XR chest 1V portable CLINICAL HISTORY: Fall, dizziness, head trauma, anticoagulated COMPARISON STUDY: 05/26/2020 FINDINGS: The heart is mildly enlarged. There is a left subclavian A-Port catheter. There is no failu re. There is no focal pulmonary consolidation. There are no pleural effusions.[ IMPRESSION: No active disease in the chest. ACT 112: Negative or not required by law. Electronically signed by: Daniele Farris M.D. 08/19/2020 3:12 PM
[2020-08-19 15:17] LABS: Albumin Globulin Ratio 0.6 (0.9-2); Alkaline Phosphatase 82 U/L (45-117); Bilirubin,Total 0.9 mg/dl (0.2-1); Globulin 3.3 gm/dl (2.5-4.0); Total Protein 5.4 gm/dl (6.4-8.2); Troponin I < 0.015 ng/ml (0-0.045)
[2020-08-19 15:18] LABS: ANC (manual) 0.75 K/uL (1.4-6.5)
[2020-08-19] MEDS ORDERED: STAT IV Infusion **Titration per Protocol STA (16:45)
[2020-08-19] MEDS ORDERED: dilTIAZem HCL 125 MG in DEXTROSE 5% 100 ML IV SCH (16:45)
[2020-08-19 16:58] LABS: Appearance Urine Clear (Clear); Bacteria Urine Automated Negative (Negative); Bilirubin Urine Negative (Negative); Blood Urine Negative (Negative); Cast Urine Automated 0 /lpf (0-5); Color Urine Yellow; Epithelial Cell Urine Auto >30 /lpf (0-5); Glucose Urine UA Trace (Negative); Ketones Urine Negative (Negative); Leukocyte Esterase Urine Negative (Negative); Nitrite Urine Negative (Negative); Protein Urine Trace (Negative); RBC Urine Automated 0-4 /hpf (0-4); Specific Gravity Urine 1.008 (1.000-1.030); Urobilinogen Urine Negative (Negative)
--- NOTE | 2020-08-19 17:00 | CT Scan Report ---
CT SCAN OF THE BRAIN WITHOUT IV CONTRAST CLINICAL HISTORY: Fall. Dizziness. COMPARISON STUDY: No priors. TECHNIQUE: Unenhanced axial CT scan of the brain is performed from the vertex to the skull base. A d ose lowering technique was utilized adhering to the principles of ALARA. CT DOSE: 1050.00 mGy.cm FINDINGS: Brain parenchyma: The brain parenchyma is normal in appearance. There is no hemorrhage, mass effect, or evidence of acute territorial ischemia by CT criteria. Camargo-white matter differentiation is preser dennis. No extra-axial fluid collection is seen. Ventricles, sulci, cisterns: Normal in configuration. Intracranial vasculature: There is atherosclerotic calcification of the cavernous carotid arteries. Calvarium: There is no depressed calvarial fracture. Sinuses and mastoids: The visualized paranasal sinuses are clear. The mastoid air cells are well pneu matized. Orbits: The bony orbits are grossly intact. There are bilateral ocular lens implants. IMPRESSION: There is no hemorrhage, mass effect, or evidence of acute territorial ischemia by CT jeffrey garduno. ACT 112: Negative or not required by law. Electronically signed by: Porfirio Walker M.D. 08/19/2020 4:59 PM
--- NOTE | 2020-08-19 17:09 | CT Scan Report ---
CT cervical spine wo con CLINICAL HISTORY: 59 years-old Male with Fall, dizziness, head trauma, anticoagulated. Acute headach e with dizziness status post fall. History of esophageal carcinoma. COMPARISON: Head CT of same day, PET CT 05/12/2020 TECHNIQUE: Multiple axial CT images of the cervical spine were obtained without contrast. A dose low ering technique was utilized adhering to the principles of ALARA. FINDINGS: There is moderate C5-C6 and moderate to severe C6-C7 disc space narrowing with associated spondylitic spurring and posterior disc osteophyte complex formations. Moderate to severe multilevel facet arthr osis. Grade 1 anterolisthesis C7 on T1 is likely secondary to chronic facet arthrosis. Multilevel for aminal narrowing. No acute fracture or subluxation. No prevertebral edema. Lung apices are clear. [place] air cells and middle ear cavities are clear. IMPRESSION: No acute fracture or subluxation. ACT 112: Negative or not required by law. The above report was generated using voice recognition software. It may contain grammatical, syntax o r spelling errors. Electronically signed by: Ceasar Buckner M.D. 08/19/2020 5:07 PM
--- NOTE | 2020-08-19 17:47 | History & Physical Report ---
Date of Service August 19, 2020 Assessment & Plan (1) Atrial fibrillation with rapid ventricular response: Patient is a 59 year old male with PMHx GERD, DM2, DVT of 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 Fall -Fall at 9AM 08/19/20 while at home -CT Head and C-spine negative for acute process or fracture -Likely multifactorial from recent chemotherapy, hypotension, and new onset atrial fibrillation -Given 2L bolus of NSS in ED, will continue with IVF hydration New onset Atrial Fibrillation with RVR -Afib RVR confirmed on EKG in ED, repeat EKG in AM ordered -Echo ordered for AM -?Etiology secondary to chemo, profound hypotension, infection? -Blood cultures drawn in ED, though low suspicion for infectious etiology at this time -[id number] 4 for diabetes and prior DVT, but already on Eliquis anticoagulation -Given 20mg IV Cardizem bolus in ED, now on Cardizem gtt -If patient does not convert overnight, possibly consider cardioversion after echo as patient has been on anticoagulation x1 month -Cardiology consulted for possible cardioversion Hypomagnesemia/Hyponatremia -Mag level 1.4, Repleted Mag 2g IV on admission -Recheck mag in AM -Hyponatremia 129, IVF -Repeat BMP in AM Type 2 DM -Hold home metformin -SSI and Basal bolus while inpatient -Last HgbA1C 07/12/20 7.7, repeat in AM Esophageal Adenocarcinoma -Last chemotherapy on 08/12/20 -Follows with Dr. Villatoro in the outpatient setting -Scheduled to have a repeat CT on 08/23/[address] Villatoro 08/27/20 -Neutropenic precautions -Blood cultures drawn in ED, pending -ANC 14.6 cells/microliter GERD -Continue home Omeprazole Hx DVT LUE -Continue home Eliquis BID Malnutrition -Albumin 2.1 on admission -Per patient he doesn't eat much because "nothing tastes good." -Also with Esophageal cx as noted above -Dietary consult -Pre-albumin ordered for AM labs Dispo: Med/Surg Telemetry FEN: DM2 diet, D5W NS +KCl 20meq 100ml/hr DVT: Eliquis BID Code: Full (2) Fall: (3) Head injury: (4) Esophageal cancer: (5) Hypomagnesemia: (6) Malnutrition: (7) Hx of type 2 diabetes mellitus: History of Present Illness Chief Complaint: Fall Primary Care Provider: Remedios Miranda DO Patient is a 59 year old male with PMHx GERD, DM2, DVT of 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 Patient notes that around 9AM this morning he had gotten out of bed to use the restroom when he felt that he was going to be too weak and has asked his to help him back into bed. When attempting to get into bed, he felt that "the room was spinning a little and my legs gave out" causing him to fall and hit the L side of his forehead. Patient notes that he did not pass out at the time and remembers the event. He states that he had chemotherapy on 08/12/20 and that he often gets weak like this 1-2 weeks after his chemotherapy treatments. This is to his recollection his 6th or 8th chemotherapy treatment and is supposedly his last. He notes this is the first time he has fallen secondary to the weakness. He otherwise only notes that he has had 1x episode of diarrhea in the past 3 days and has been eating and drinking his usual amount which is fairly limited. He notes he drinks roughly 1 quart of water and 1 quart of Pedialyte daily and eats very minimal (only a bowel of cheerios this morning) because "nothing tastes good." Otherwise notes that he has had roughly 60lb weight loss since his diagnosis in April due to his lack of appetite. Currently noting that he feels well without dizziness or feelings that his heart is beating funny. Denies any fever, chills, SOB, chest pain. Does note 2/10 mid-epigastric pain that he notes "is always there." Medical Hx: Esophageal adenocarcinoma Apr 2020, GERD, DM2, DVT LUE 1 month prior Surgical Hx: S/P Cataract and L thumb repair Family Hx: Mother DM, Brother DM Social: 1 can chewing tobacco x28 years - quit 15 years ago, 12 beers/week, denies drug use Allergies Allergy/AdvReac Type Severity Reaction Status Date / Time No Known Allergies Allergy Verified 08/19/20 15:49 Home Medications Medication Instructions Recorded Confirmed Type metformin 500 mg tablet 500 mg PO BID #60 tab 07/15/20 08/19/20 Rx apixaban 5 mg tablet 5 mg PO BID 07/23/20 08/19/20 History omeprazole 40 mg PO BID 08/19/20 08/19/20 History Past Med/Surg History Medical History (Updated 08/19/20 @ 18:[address] DO) Esophageal cancer (04/27/20) 04/2020 GERD (gastroesophageal reflux disease) Hx of benign neoplasm of colon (12/08/14) Hx of type 2 diabetes mellitus (04/23/19) on no medications; diet controlled Surgical History H/O thumb surgery (~1983) left S/P cataract surgery (11/04/02) right and left Family History Mother Diabetes Father Asthma Denies family history of Ovarian cancer Prostate cancer Myocardial infarction Breast cancer Colorectal cancer Social History Smoking Status: Never smoker Second Hand Exposure: No; Do You Dip or Chew Tobacco: No; Tobacco Cessation Education Requested by Patient: No Hx Alcohol Use: No Hx Substance Use: No Preferred Language: Iranian Communication Ability: Effective Visual Impairment: No Limitations Hearing Ability: Normal Drug Room Operator Required: No Beliefs That Will Affect Care: None marital status: Current Living Situation: Spouse current occupational status: employed 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 [employer] How many Children do You have: 3 How many Children do You have Comment: daughter Tahmina, employed @ [employer] Other Information That Helps Us Care for You: No Feels Safe at Home: Yes Safety Concerns: Feels Safe At This Time Childhood Exposure to Second-Hand Smoke: No Diet Comment: mechanical soft, bland caffeine: Yes during the past year weight has: decreased > 10 lbs Dental Care, Regularly: Yes Physical Activity Frequency: Daily Seatbelt Use: always Sunscreen Use: No Assistive Devices: Glasses Assistive Devices Comment: Top/Bottom partial Review of Systems Review of Systems: All systems reviewed & are unremarkable except as noted in Subjective Physical Exam Constitutional: cooperative; no acute distress Eyes: PERRL, conjunctivae normal, anicteric sclerae ENMT: external ear and nose normal, oropharynx normal Neck: trachea midline, no thyromegaly Respiratory: normal respiratory effort, lungs clear to auscultation Cardiovascular: Rate/Rhythm: + irregularly irregular Heart Sounds: no murmur Vessels: posterior tibial pulses present and dorsalis pedis pulses present Extremities: no calf tenderness and no edema Gastrointestinal (Abdomen): Inspection/Auscultation: abdomen normal to inspection and normal bowel sounds; abdomen not distended Percussion/Palpation: + abdomen tender (slight ttp in epigastric region 2/10 ) and abdomen soft Musculoskeletal: Head/Neck/Chest: normocephalic; + evidence of head trauma (roughly 2cm lesion on the L forehead, not bleeding ) Neurologic: PERRL, EOMI, accommodation nl, no face palsy, no dysarthria Psychiatric: A+Ox3, euthymic affect Results & Data Results & Data ([facility]) Vital Signs (Past 12 Hours) Vital Signs Temp Pulse Pulse Pulse Resp BP BP 08/19/20 17:44 115 H 14 101/69 08/19/20 16:20 142 H 20 08/19/20 16:15 106 H 19 77/61 L 08/19/20 16:10 114 H 18 08/19/20 16:01 109 H 18 08/19/20 16:00 115 H 20 81/61 L 08/19/20 15:50 123 H 27 H 08/19/20 15:45 113 H 18 81/61 L 08/19/20 15:40 101 H 15 08/19/20 15:30 108 H 17 90/67 L 08/19/20 15:20 106 H 21 08/19/20 15:16 92 H 23 08/19/20 15:15 112 H 22 81/64 L 08/19/20 15:10 165 H 24 08/19/20 15:09 94 H 17 08/19/20 15:00 143 H 22 71/59 L 08/19/20 14:50 155 H 88/57 L 08/19/20 14:12 37.1 C 86 22 101/76 Pulse Ox 08/19/20 17:44 98 08/19/20 16:20 98 08/19/20 16:15 97 08/19/20 16:10 98 08/19/20 16:01 100 08/19/20 16:00 98 08/19/20 15:50 94 08/19/20 15:45 100 08/19/20 15:40 99 08/19/20 15:30 99 08/19/20 15:20 99 08/19/20 15:16 100 08/19/20 15:15 100 08/19/20 15:10 08/19/20 15:09 96 08/19/20 15:00 08/19/20 14:50 08/19/20 14:12 97 Supervising Physician Co-Signing Physician Notes I personally saw and examined the patient. I verified all cunha points and agree with resident physician Dr. Street with the following exceptions and/or additions: 59-year-old male presents to the ER after a fall this morning with presyncope. He denies any current chest pain, shortness of breath, dizziness or lying down. O/E Tachycardia, irregularly irregular rhythm. Chest CTAB. No leg edema. No JVD. A/P A. fib RVR - will initially trial rate control after adequate IV fluid rehydration. Agree with above plan if he remains hypotensive will switch to amiodarone. Continue anticoagulation with Eliquis. TTE pending. TSH WNL. Pancytopenia secondary to chemotherapy - monitor labs in AM Resident Activity Tracking Resident Involvement: Resident Care Provided Care Provided: Adult [facility] Medicine
[2020-08-19] MEDS ORDERED: ONDANSETRON INJ 2 MG/ML 2 ML VIAL IV PRN (18:04)
[2020-08-19] MEDS ORDERED: MAGNESIUM SULFATE / D5W 1 GM/100 ML BAG IV STA (18:04)
[2020-08-19] MEDS ORDERED: SODIUM CHLORIDE 0.9% 1000ML 1,000 ML IV ONE (19:43)
[2020-08-19] MEDS: MAGNESIUM SULFATE / D5W 1 GM/100 ML BAG IV STA ×2 (20:57→21:00)
[2020-08-19] MEDS ORDERED: NON-FORMULARY MEDICATION (Omeprazole 40 mg capsule,delayed release(DR/EC)) PO SCH (21:00)
[2020-08-19] MEDS: APIXABAN 5 MG TABLET PO SCH (22:46)
[2020-08-19] MEDS ORDERED: METOPROLOL TARTRATE 1 MG/ML VIAL IV PRN (23:57)
[2020-08-20] MEDS ORDERED: DIGOXIN 500 MCG/2 ML AMP IV STA (00:03)
[2020-08-20] MEDS: ALBUMIN 25% 12.5 GM/50 ML VIAL IV SCH ×4 (00:14→02:38)
[2020-08-20] MEDS ORDERED: GLUCOSE 40% GEL 15 GM TUBE PO PRN (00:43)
[2020-08-20] MEDS ORDERED: GLUCAGON FOR INJ 1 MG VIAL SQ PRN (00:43)
[2020-08-20] MEDS ORDERED: CARBOHYDRATES FOR HYPOGLYCEMIA PO PRN (00:43)
[2020-08-20] MEDS ORDERED: GLUCOSE 10 TABS/TUBE PO PRN (00:43)
[2020-08-20] MEDS ORDERED: DEXTROSE 50% 50 ML SYRINGE IV PRN (00:43)
[2020-08-20] MEDS: D5NSS + 20MEQ KCL 20 MEQ/1,000 ML BAG IV SCH ×2 (01:12→18:34)
[2020-08-20] MEDS: PANTOprazole 40 MG TAB PO SCH ×3 (01:17→20:18)
[2020-08-20] MEDS: INSULIN ASPART 100 UNITS/ML 3 ML PEN SC SCH ×5 (01:28→20:27)
[2020-08-20] MEDS: INSULIN GLARGINE SOLOSTAR 100 UNITS/ML 3 ML PEN SC SCH ×2 (01:28→08:21)
--- NOTE | 2020-08-20 06:57 | Electrocardiogram Report ---
Test Reason : Blood Pressure : / mmHG Vent. Rate : 159 BPM Atrial Rate : 500 BPM P-R Int : 000 ms QRS Dur : 090 ms QT Int : 300 ms P-R-T Axes : 000 -08 -12 degrees QTc Int : 488 ms Atrial fibrillation with rapid ventricular response Nonspecific ST and T wave abnormality Abnormal ECG When compared with ECG of 24-MAY-2020 10:11, Atrial fibrillation has replaced Sinus rhythm Vent. rate has increased BY [address] now depressed in Anterolateral leads Nonspecific T wave abnormality, worse in Inferior leads Confirmed by Art Lyons ([id number]) on 08/20/2020 6:56:44 AM Referred By: REFERRED SELF Confirmed By:Art Lyons
[2020-08-20] MEDS: APIXABAN 5 MG TABLET PO SCH ×2 (08:21→20:18)
[2020-08-20 08:22] LABS: BUN Creatinine Ratio 4.9 (10-20); Creatinine Clr Calc Pharmacy 156.9 ml/min; Est GFR (African American) 135.2; Est GFR (Non-African American) 116.6; Magnesium 1.8 mg/dl (1.8-2.4); Potassium 3.1 mmol/L (3.5-5.1)
[2020-08-20 08:26] LABS: Estimated Average Glucose 189 mg/dl; Hemoglobin A1C 8.2 % (4.5-5.6)
[2020-08-20 08:27] LABS: Prealbumin 6.8 mg/dl (20-40)
[2020-08-20 08:30] LABS: Hematocrit (blood only) 20.7 % (42-52); Hemoglobin 6.9 g/dL (14.0-18.0); Mean Corpuscular Hemoglobin 27.2 pg (25-34); Mean Corpuscular Hgb Conc 33.3 g/dL (32-36); Mean Corpuscular Volume 81.5 fL (80-100); Mean Platelet Volume 10.9 fL (7.4-10.4); Nucleated RBC # (auto) 0.02 K/uL (0-0); Platelet Count 105 K/uL (130-400); RDW Coefficient of Variation 16.4 % (11.5-14.5); RDW Standard Deviation 47.8 fL (36.4-46.3); Red Blood Count 2.54 M/uL (4.7-6.1)
[2020-08-20 08:35] LABS: Immature Granulocytes # (auto) 0.02 K/uL (0.00-0.02); Immature Granulocytes % (auto) 1.3 %; Lymphocytes # (auto) 0.48 K/uL (1.2-3.4); Neutrophils % (auto) 26.7 %; Ovalocytes 1+
--- NOTE | 2020-08-20 08:53 | Emergency Department Note ---
ED Visit Note Patient was seen and evaluated at the bedside w/ Perez Lassiter PA-C. Please see their note for history, physical, details, and disposition. Patient had presented after fall and does have a history of esophageal cancer. The patient is on apixaban for history of blood clots. The patient did have acute onset of A. fib with RVR. The patient did receive IV fluids and Cardizem bolus. Patient was admitted to the medicine service. Critical Care: I have personally spent 45 minutes of critical care time in direct management of this patient. This includes bedside care, interpretation of diagnostic studies, and testing, discussion with consultants, patient, and family members, and other require inpatient management activities. This 45 minutes is in excess of all separately billable procedures. .
[2020-08-20] MEDS ORDERED: 0.2 MICRON FILTER SET 1 EA IV ONE ×2 (09:21→14:53)
[2020-08-20] MEDS ORDERED: AMIODARONE / D5W 360 MG/200 ML BAG IV ONE (09:21)
--- NOTE | 2020-08-20 09:27 | Cardiology Consultation ---
Date of Consultation August 20, 2020 Assessment & Plan (1) Atrial fibrillation with rapid ventricular response: 2. Esophageal cancer 3. Type 2 diabetes 4. History of left upper extremity DVT-- on Eliquis 5. Pancytopenia Patient with history of esophageal cancer currently undergoing chemotherapy presented to the ED yesterday after a fall secondary to dizziness. He was found to be in new onset atrial fibrillation with RVR. He is relatively asymptomatic in regards to his atrial fibrillation. Echo with normal LV function, no wall motion abnormalities, no significant valvular disease. Feel that rate control alone will be difficult given his hypotension. 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 Plan to start IV amiodarone and convert to oral amiodarone prior to discharge. Continue anticoagulation with Eliquis. Thank you for allowing us to participate in the care of this patient. Supervising Physician Co-Signing Physician Notes Seen and examined. Agree with Nga Us's assessment and plan. Start IV amiodarone without bolus. Continue oral amiodarone as an outpatient. History of Present Illness Reason for Consultation: Afib with RVR Attending Physician: Darwin Dobbins MD History of Present Illness Mr. Kaur is a very pleasant 59 year old male who is being seen in consultation today for new onset atrial fibrillation with RVR. Medical history significant for esophageal cancer undergoing chemotherapy, GERD, upper extremity DVT on Eliquis, type 2 diabetes. Patient denies any prior cardiac history. In the fall of 2019 was diagnosed with esophageal cancer. He had an esophageal stent placed and has been undergoing chemotherapy. He also was diagnosed with left upper extremity DVT and is on anticoagulation with Eliquis. His most recent chemotherapy was 08/12/20 and since then has been feeling very poorly. He complains of significant fatigue and dizziness. He describes being off balanced with trying to walk. No syncope. Yesterday he was attempting to get back into bed, got dizzy and fell. He hit his head and therefore presented to the ED for evaluation. CT of his head was unremarkable. He was noted to be in atrial fibrillation with RVR. No history of afib. He is not aware of his afib and specifically denies palpitations. No chest pain, shortness of breath, edema or abnormal bleeding. He was given bolus of IV cardizem then started on a drip. EKG this am atrial fibrillation with RVR and nonspecific ST changes. Troponin negative. Telemetry reviewed, remains in afib with heart rate averaging 110-120s. He has been hypotensive. He is also pancytopenic. Family history: Denies family history of heart disease. Social history: and [place] in [place]. 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 Prior smokeless tobacco use. Allergies Allergy/AdvReac Type Severity Reaction Status Date / Time No Known Allergies Allergy Verified 08/19/20 15:49 Home Medications Medication Instructions Recorded Confirmed Type metformin 500 mg tablet 500 mg PO BID #60 tab 07/15/20 08/19/20 Rx apixaban 5 mg tablet 5 mg PO BID 07/23/20 08/19/20 History omeprazole 40 mg PO BID 08/19/20 08/19/20 History Patient History Medical History (Updated 08/19/20 @ 18:[address] DO) Esophageal cancer (04/27/20) 04/2020 GERD (gastroesophageal reflux disease) Hx of benign neoplasm of colon (12/08/14) Hx of type 2 diabetes mellitus (04/23/19) on no medications; diet controlled Surgical History H/O thumb surgery (~1983) left S/P cataract surgery (11/04/02) right and left Family History Mother Diabetes Father Asthma Denies family history of Ovarian cancer Prostate cancer Myocardial infarction Breast cancer Colorectal cancer Social History Smoking Status: Never smoker Second Hand Exposure: No; Do You Dip or Chew Tobacco: No; Tobacco Cessation Education Requested by Patient: No Hx Alcohol Use: No Hx Substance Use: No Preferred Language: American Communication Ability: Effective Visual Impairment: No Limitations Hearing Ability: Normal Photocopying Equipment Repairer Required: No Beliefs That Will Affect Care: None marital status: Current Living Situation: Spouse current occupational status: employed 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 [employer] How many Children do You have: 3 How many Children do You have Comment: daughter Tahimna, employed @ [employer] Other Information That Helps Us Care for You: No Feels Safe at Home: Yes Safety Concerns: Feels Safe At This Time Childhood Exposure to Second-Hand Smoke: No Diet Comment: mechanical soft, bland caffeine: Yes during the past year weight has: decreased > 10 lbs Dental Care, Regularly: Yes Physical Activity Frequency: Daily Seatbelt Use: always Sunscreen Use: No Assistive Devices: Glasses Assistive Devices Comment: Top/Bottom partial Review of Systems Review of Systems: All systems reviewed & are unremarkable except as noted in HPI & below Physical Exam Physical Exam: General: No acute distress, comfortable. HEENT: Head is normal. PERRLA. EOMI. Sclerae anicteric. Neck: Normal carotid upstrokes, no bruits. No appreciable JVD. Lungs: Clear to auscultation bilaterally without rales, rhonchi or wheezes. Cardiac: Irregularly irregular, tachycardic. No appreciable murmur, gallop or rub. Port left chest Extremities/vascular: --Well perfused. No peripheral edema. --Radial, DP and PT pulses 2+ bilaterally Skin: Rash left forearm Neurologic: Nonfocal Psychiatric: Affect appropriate. Alert and oriented. Results & Data ([facility]) Vital Signs (Past 12 Hours) Vital Signs Temp Pulse Pulse Resp BP BP Pulse Ox 08/20/20 03:27 36.9 C 110 H 18 95/56 L 93 08/20/20 00:43 36.6 C 107 H 20 88/58 L 97 08/20/20 00:12 108 H 08/19/20 23:20 116 H 18 96 08/19/20 23:10 112 H 17 97 08/19/20 23:01 115 H 20 97 08/19/20 23:00 106 H 19 87/62 L 97 08/19/20 22:50 113 H 20 98 08/19/20 22:40 105 H 18 99 08/19/20 22:31 106 H 18 98 08/19/20 22:30 115 H 20 86/58 L 99 08/19/20 22:20 119 H 20 97 08/19/20 22:15 108 H 19 90/64 L 98 08/19/20 22:10 104 H 19 96 08/19/20 22:01 117 H 20 99 08/19/20 22:00 105 H 19 96/67 L 99 08/19/20 21:50 115 H 18 98 08/19/20 21:45 103 H 21 87/69 L 99 08/19/20 21:40 108 H 17 98 08/19/20 21:31 111 H 18 99 08/19/20 21:30 106 H 17 97/64 L 99 Laboratory Results Laboratory Results - last 24 hr 08/19/20 08/19/20 08/19/20 14:30 14:30 16:28 WBC 1.95 L RBC 3.38 L Hgb 9.0 L Hct 27.0 L MCV 79.9 L MCH 26.6 MCHC 33.3 RDW Std Deviation 46.3 RDW Coeff of Jarvis 15.9 H Plt Count 103 L MPV 10.3 Immature Gran % (Auto) Neut % (Auto) Lymph % (Auto) [place] % (Auto) Eos % (Auto) Baso % (Auto) Neut # (Auto) Lymph # (Auto) [place] # (Auto) Eos # (Auto) Baso # (Auto) Immature Gran # (Auto) Absolute Nucleated RBC 0.03 H Nucleated RBC % (auto) 1.5 Neutrophils % (Manual) 38.6 Band Neutrophils % 0.0 Lymphocytes % (Manual) 27.3 Prolymphocyte % 0.0 Reactive Lymphs % (Man) 0.0 Monocytes % (Manual) 31.8 Basophils % (Manual) 2.3 Plasma Cell % (Manual) 0.0 Neutrophils # (Manual) 0.75 L Total Absolute Neuts 0.75 L* Lymphocytes # (Manual) 0.53 L Total Abs Lymphocytes 0.53 L Monocytes # (Manual) 0.62 H Basophils # (Manual) 0.04 Large Granular Lymphs 0.0 Dohle Bodies 2+ Giant Platelets 2+ Ovalocytes Sodium 129 L Potassium 3.5 Chloride 95 L Carbon Dioxide 23 Anion Gap 11.0 BUN 4 L Creatinine 0.80 Est Cr Clr Drug Dosing Not Reportable Est GFR ( Amer) 114.1 Est GFR (Non-Af Amer) 98.5 BUN/Creatinine Ratio 5.4 L Glucose 193 H POC Glucose Estimat Average Glucose Hemoglobin A1c Osmolality Calcium 8.4 L Phosphorus Magnesium 1.4 L Total Bilirubin 0.9 AST 12 L ALT 18 Alkaline Phosphatase 82 Troponin I < 0.015 Total Protein 5.4 L Albumin 2.1 L Globulin 3.3 Albumin/Globulin Ratio 0.6 L Prealbumin TSH 1.080 Free T4 Urine Color Yellow Urine Appearance Clear Urine pH 7.0 Ur Specific [place] 1.008 Urine Protein Trace H Urine Glucose (UA) Trace H Urine Ketones Negative Urine Blood Negative Urine Nitrite Negative Urine Bilirubin Negative Urine Urobilinogen Negative Ur Leukocyte Esterase Negative Urine WBC (Auto) 1-5 Urine RBC (Auto) 0-4 U Hyaline Cast (Auto) 0 U Epithel Cells (Auto) >30 H Urine Bacteria (Auto) Negative Ur Renal Epithelial Cell Not Reportable SARS-CoV-2 Ag (Rapid) 08/19/20 08/20/20 08/20/20 20:40 01:22 06:31 WBC RBC Hgb Hct MCV MCH MCHC RDW Std Deviation RDW Coeff of Jarvis Plt Count MPV Immature Gran % (Auto) Neut % (Auto) Lymph % (Auto) [place] % (Auto) Eos % (Auto) Baso % (Auto) Neut # (Auto) Lymph # (Auto) [place] # (Auto) Eos # (Auto) Baso # (Auto) Immature Gran # (Auto) Absolute Nucleated RBC Nucleated RBC % (auto) Neutrophils % (Manual) Band Neutrophils % Lymphocytes % (Manual) Prolymphocyte % Reactive Lymphs % (Man) Monocytes % (Manual) Basophils % (Manual) Plasma Cell % (Manual) Neutrophils # (Manual) Total Absolute Neuts Lymphocytes # (Manual) Total Abs Lymphocytes Monocytes # (Manual) Basophils # (Manual) Large Granular Lymphs Dohle Bodies Giant Platelets Ovalocytes Sodium 133 L Potassium 3.1 L Chloride 101 Carbon Dioxide 26 Anion Gap 6.0 BUN 3 L Creatinine 0.53 L Est Cr Clr Drug Dosing 156.9 Est GFR ( Amer) 135.2 Est GFR (Non-Af Amer) 116.6 BUN/Creatinine Ratio 4.9 L Glucose 162 H POC Glucose 137 H Estimat Average Glucose Hemoglobin A1c Osmolality Calcium 8.0 L Phosphorus 2.0 L Magnesium 1.8 Total Bilirubin AST ALT Alkaline Phosphatase Troponin I Total Protein Albumin Globulin Albumin/Globulin Ratio Prealbumin 6.8 L TSH Free T4 Urine Color Urine Appearance Urine pH Ur Specific [place] Urine Protein Urine Glucose (UA) Urine Ketones Urine Blood Urine Nitrite Urine Bilirubin Urine Urobilinogen Ur Leukocyte Esterase Urine WBC (Auto) Urine RBC (Auto) U Hyaline Cast (Auto) U Epithel Cells (Auto) Urine Bacteria (Auto) Ur Renal Epithelial Cell SARS-CoV-2 Ag (Rapid) Negative 08/20/20 08/20/20 08/20/20 06:31 06:31 07:17 WBC 1.50 L RBC 2.54 L Hgb 6.9 L* Hct 20.7 L* MCV 81.5 MCH 27.2 MCHC 33.3 RDW Std Deviation 47.8 H RDW Coeff of Jarvis 16.4 H Plt Count 105 L MPV 10.9 H Immature Gran % (Auto) 1.3 Neut % (Auto) 26.7 Lymph % (Auto) 32.0 [place] % (Auto) 40.0 Eos % (Auto) 0.0 Baso % (Auto) 0.0 Neut # (Auto) 0.40 L* Lymph # (Auto) 0.48 L [place] # (Auto) 0.60 H Eos # (Auto) 0.00 Baso # (Auto) 0.00 Immature Gran # (Auto) 0.02 Absolute Nucleated RBC 0.02 H Nucleated RBC % (auto) 1.0 Neutrophils % (Manual) Band Neutrophils % Lymphocytes % (Manual) Prolymphocyte % Reactive Lymphs % (Man) Monocytes % (Manual) Basophils % (Manual) Plasma Cell % (Manual) Neutrophils # (Manual) Total Absolute Neuts Lymphocytes # (Manual) Total Abs Lymphocytes Monocytes # (Manual) Basophils # (Manual) Large Granular Lymphs Dohle Bodies Giant Platelets Ovalocytes 1+ Sodium Potassium Chloride Carbon Dioxide Anion Gap BUN Creatinine Est Cr Clr Drug Dosing Est GFR ( Amer) Est GFR (Non-Af Amer) BUN/Creatinine Ratio Glucose POC Glucose 144 H Estimat Average Glucose 189 Hemoglobin A1c 8.2 H Osmolality Calcium Phosphorus Magnesium Total Bilirubin AST ALT Alkaline Phosphatase Troponin I Total Protein Albumin Globulin Albumin/Globulin Ratio Prealbumin TSH Free T4 Urine Color Urine Appearance Urine pH Ur Specific [place] Urine Protein Urine Glucose (UA) Urine Ketones Urine Blood Urine Nitrite Urine Bilirubin Urine Urobilinogen Ur Leukocyte Esterase Urine WBC (Auto) Urine RBC (Auto) U Hyaline Cast (Auto) U Epithel Cells (Auto) Urine Bacteria (Auto) Ur Renal Epithelial Cell SARS-CoV-2 Ag (Rapid) 08/20/20 08/20/20 08:40 08:40 WBC RBC Hgb Hct MCV MCH MCHC RDW Std Deviation RDW Coeff of Jarvis Plt Count MPV Immature Gran % (Auto) Neut % (Auto) Lymph % (Auto) [place] % (Auto) Eos % (Auto) Baso % (Auto) Neut # (Auto) Lymph # (Auto) [place] # (Auto) Eos # (Auto) Baso # (Auto) Immature Gran # (Auto) Absolute Nucleated RBC Nucleated RBC % (auto) Neutrophils % (Manual) Band Neutrophils % Lymphocytes % (Manual) Prolymphocyte % Reactive Lymphs % (Man) Monocytes % (Manual) Basophils % (Manual) Plasma Cell % (Manual) Neutrophils # (Manual) Total Absolute Neuts Lymphocytes # (Manual) Total Abs Lymphocytes Monocytes # (Manual) Basophils # (Manual) Large Granular Lymphs Dohle Bodies Giant Platelets Ovalocytes Sodium Potassium Chloride Carbon Dioxide Anion Gap BUN Creatinine Est Cr Clr Drug Dosing Est GFR ( Amer) Est GFR (Non-Af Amer) BUN/Creatinine Ratio Glucose POC Glucose Estimat Average Glucose Hemoglobin A1c Osmolality 269 L Calcium Phosphorus Magnesium Total Bilirubin AST ALT Alkaline Phosphatase Troponin I Pending Total Protein Albumin Globulin Albumin/Globulin Ratio Prealbumin TSH Pending Free T4 Pending Urine Color Urine Appearance Urine pH Ur Specific [place] Urine Protein Urine Glucose (UA) Urine Ketones Urine Blood Urine Nitrite Urine Bilirubin Urine Urobilinogen Ur Leukocyte Esterase Urine WBC (Auto) Urine RBC (Auto) U Hyaline Cast (Auto) U Epithel Cells (Auto) Urine Bacteria (Auto) Ur Renal Epithelial Cell SARS-CoV-2 Ag (Rapid) PG Care Time/CCT Total # of Minutes Spent Total Time Spent with Patient: Total time spent is greater than 50% in coordination of care (as documented) at patient's floor/unit and/or counseling patient: Coding Level of Care Code 89984 Inpt Consult Level 4 Diagnoses Atrial fibrillation with rapid ventricular response I48.91
[2020-08-20] MEDS: POTASSIUM CHLORIDE CRTAB 20 MEQ TABCR PO SCH ×2 (09:29→20:18)
[2020-08-20] MEDS: NSS + 20MEQ KCL 20 MEQ/1,000 ML BAG IV SCH ×2 (09:29→18:50)
[2020-08-20] MEDS ORDERED: SODIUM CHLORIDE 0.9% 250 ML IV PRN ×2 (09:56→10:10)
[2020-08-20 10:06] LABS: T4 Free Thyroxine 1.55 ng/dl (0.8-1.6); Thyroid Stimulating Hormone 0.622 uIu/ml (0.300-4.500); Troponin I < 0.015 ng/ml (0-0.045)
--- NOTE | 2020-08-20 12:10 | Electrocardiogram Report ---
Test Reason : Blood Pressure : / mmHG Vent. Rate : 115 BPM Atrial Rate : 107 BPM P-R Int : 000 ms QRS Dur : 094 ms QT Int : 296 ms P-R-T Axes : 000 -14 066 degrees QTc Int : 409 ms Atrial fibrillation with rapid ventricular response Abnormal ECG When compared with ECG of 19-AUG-2020 14:44, Nonspecific T wave abnormality, improved in Inferior leads Nonspecific T wave abnormality now evident in Lateral leads Confirmed by Noble Calderón ([id number]) on 08/20/2020 12:09:33 PM Referred By: REFERRED SELF Confirmed By:Noble Calderón
--- NOTE | 2020-08-20 12:22 | XCELERA ---
[id number]
--- NOTE | 2020-08-20 12:22 | Billing Data ---
Date of Service August 19, 2020 Coding Level of Care Code 36035 Initial Inpt Care Lvl 2
--- NOTE | 2020-08-20 14:14 | Hospitalist Progress Note ---
Date of Service August 20, 2020 Assessment & Plan (1) Atrial fibrillation with rapid ventricular response: Telemetry. Cardiology consultation appreciated. Now on amiodarone infusion. He is on Eliquis therapy previously which will be continued. Cardiac echo reportedly normal per cardiology. We will correct hypomagnesemia. Present on Admission?: Yes (2) Fall: The patient fell at home due to generalized weakness. No evidence of CVA. No fractures or significant head injury found Present on Admission?: Yes (3) Head injury: Due to fall at home. Head CT scan negative Present on Admission?: Yes (4) Esophageal cancer: Currently receiving chemotherapy. Consult oncology. Last chemotherapy treatment Present on Admission?: Yes (5) Hypomagnesemia: Parenteral replacement. Serial lab studies Present on Admission?: Yes (6) Hx of type 2 diabetes mellitus: ADA diet. Sliding scale coverage. Metformin on hold Present on Admission?: Yes (7) Pancytopenia due to antineoplastic chemotherapy: Hemoglobin is 6.9 this morning. Will receive 2 units packed red blood cells. Consult oncology. He may be a candidate for Neupogen therapy. Serial lab studies DVT prophylaxis: The patient is currently on Eliquis Disposition: Eventual discharge to home Present on Admission?: Yes Admission and Anticipated Discharge Date Admission Date: August 19, 2020 Subjective Alert and oriented. He has given consent for blood transfusion, 2 units. Stool Hemoccult pending. Thyroid profile and serum osmolarity ordered. Potassium replacement underway. He is now on amiodarone infusion per cardiology consultation. He already is on Eliquis due to his history of left upper extremity DVT. Oncology consulted for management of pancytopenia which appears to be chemotherapy related. Serial lab studies ordered. Review of Systems Review of Systems: Constitutional-no fever or chills ENT-no blurred vision, no double vision, no epistaxis, no sore throat Respiratory-no cough, no wheezing, no shortness of breath Cardiac-no palpitations, no chest pain, no syncope GI-no nausea, vomiting, diarrhea, melena, hematochezia -no urinary retention, no urinary incontinence, no dysuria, no hematuria Musculoskeletal-no joint pain, no muscle tenderness Skin-no bruising, no rashes, no pruritus Neuro-generalized weakness Psych-no depression, no anxiety Physical Exam Physical Exam: General-alert and oriented x3, no fevers, no chills HEENT-head atraumatic and normocephalic, TMs intact bilaterally, pupils equal and reactive to light, extraocular muscles intact Neck-no lymphadenopathy or thyromegaly, trachea midline Chest-clear to auscultation percussion. No rales wheezing or rhonchi Cardiac-irregular tachycardic heart rhythm. Normal S1 and S2. Abdomen-normal bowel sounds, nontender, no hepatosplenomegaly Extremities-no cyanosis, clubbing, or edema Neuro-cranial nerves II through XII intact, no focal deficits Psych-normal affect, normal mood Results & Data Results & Data ([facility]) Vital Signs (Past 12 Hours) Vital Signs Temp Pulse Pulse Pulse Resp BP BP 08/20/20 13:54 37.0 C 114 H 18 116/75 08/20/20 13:39 37.3 C 116 H 18 119/83 08/20/20 13:21 37.0 C 104 H 18 117/71 08/20/20 13:00 37.1 C 114 H 18 122/77 08/20/20 12:21 37.2 C 111 H 18 117/78 08/20/20 11:51 36.3 C L 133 H 18 119/81 08/20/20 11:36 37.1 C 109 H 18 108/71 08/20/20 11:17 37.0 C 114 H 18 107/73 08/20/20 10:41 134 H 89/53 L 08/20/20 10:25 105 H 92/53 L 08/20/20 03:27 36.9 C 110 H 18 95/56 L Pulse Ox 08/20/20 13:54 99 08/20/20 13:39 99 08/20/20 13:21 99 08/20/20 13:00 99 08/20/20 12:21 98 08/20/20 11:51 100 08/20/20 11:36 98 08/20/20 11:17 100 08/20/20 10:41 08/20/20 10:25 08/20/20 03:27 93 Laboratory Results 08/20/20 06:31 08/20/20 06:31 PG Care Time/CCT Total # of Minutes Spent Total Time Spent with Patient: Total time spent is greater than 50% in coordin ation of care (as documented) at patient's floor/unit and/or counseling patient: Coding Level of Care Code 75614 Subseq Hosp Care Lvl 3 Diagnoses Atrial fibrillation with rapid ventricular response I48.91 Fall W19.XXXA Head injury S09.90XA Esophageal cancer C15.9 Hypomagnesemia E83.42 Hx of type 2 diabetes mellitus Z86.39 Pancytopenia due to antineoplastic chemotherapy D61.810; T45.1X5A
[2020-08-20] MEDS: AMIODARONE / D5W 360 MG/200 ML BAG IV SCH (15:44)
[2020-08-21] MEDS: AMIODARONE / D5W 360 MG/200 ML BAG IV SCH ×2 (02:42→14:44)
[2020-08-21] MEDS ORDERED: HEPARIN 100 UNIT/ML 5ML FLUSH FLUSH PRN (02:53)
[2020-08-21] MEDS: NSS + 20MEQ KCL 20 MEQ/1,000 ML BAG IV SCH ×2 (04:37→14:44)
[2020-08-21 08:03] LABS: Hematocrit (blood only) 28.7 % (42-52); Hemoglobin 9.9 g/dL (14.0-18.0); Mean Corpuscular Hemoglobin 27.7 pg (25-34); Mean Corpuscular Hgb Conc 34.5 g/dL (32-36); Mean Corpuscular Volume 80.4 fL (80-100); Mean Platelet Volume 10.9 fL (7.4-10.4); Nucleated RBC # (auto) 0.02 K/uL (0-0); Nucleated RBC % (auto) 0.9 %; Platelet Count 118 K/uL (130-400); RDW Coefficient of Variation 16.3 % (11.5-14.5); RDW Standard Deviation 46.9 fL (36.4-46.3); Red Blood Count 3.57 M/uL (4.7-6.1); White Blood Count 2.19 K/uL (4.8-10.8)
[2020-08-21 08:19] LABS: Basophils # (auto) 0.01 K/uL (0-0.2); Basophils % (auto) 0.5 %; Eosinophils # (auto) 0.01 K/uL (0-0.5); Eosinophils % (auto) 0.5 %; Immature Granulocytes # (auto) 0.04 K/uL (0.00-0.02); Immature Granulocytes % (auto) 1.8 %; Lymphocytes # (auto) 0.57 K/uL (1.2-3.4); Monocytes # (auto) 0.78 K/uL (0.11-0.59); Monocytes % (auto) 35.6 %; Neutrophils # (auto) 0.78 K/uL (1.4-6.5); Neutrophils % (auto) 35.6 %
[2020-08-21 08:25] LABS: BUN Creatinine Ratio 4.7 (10-20); Creatinine Clr Calc Pharmacy 201.2 ml/min; Est GFR (African American) 144.6; Est GFR (Non-African American) 124.7; Potassium 3.4 mmol/L (3.5-5.1)
[2020-08-21] MEDS: APIXABAN 5 MG TABLET PO SCH ×2 (08:29→20:53)
[2020-08-21] MEDS: POTASSIUM CHLORIDE CRTAB 20 MEQ TABCR PO SCH ×2 (08:29→20:52)
[2020-08-21] MEDS: PANTOprazole 40 MG TAB PO SCH ×2 (08:29→20:53)
[2020-08-21] MEDS: INSULIN ASPART 100 UNITS/ML 3 ML PEN SC SCH ×4 (08:29→20:55)
--- NOTE | 2020-08-21 09:07 | Cardiology Progress Note ---
Date of Service August 21, 2020 Assessment & Plan (1) Atrial fibrillation with rapid ventricular response: 2. Esophageal cancer 3. Type 2 diabetes 4. History of left upper extremity DVT-- on Eliquis 5. Pancytopenia While he is asymptomatic, he continues to have elevated heart rates. He has been on amiodarone infusion for nearly 24 hours. His blood pressure is improved. I think we can keep him on the amiodarone until this evening. I will add low-dose metoprolol. In the absence of significant improvement in his heart rate, we could consider cardioversion on Sunday. Alternatively, we could consider discharge even with elevated heart rates provided he is asymptomatic. He could have close follow-up in the clinic. Admission and Anticipated Discharge Date Admission Date: August 19, 2020 Subjective This morning patient claims to be feeling well. Overall feeling better and stronger. He claims to have been sitting up at the bedside but performing lit tle ambulation due to trouble with his IV pole. However, he did not report dizziness or lightheadedness. No sense of palpitation. Review of Systems Review of Systems: Per HPI Physical Exam Physical Exam: The patient is alert and oriented. Mood and affect appeared normal. He answered all questions appropriately. HEENT: Pupils are equal and reactive to light and accommodation. Extraocular movements are intact. The sclerae are anicteric. Neuro: Cranial nerves intact (wearing mask) Lungs: Clear to auscultation bilaterally. He has good air movement without use of accessory muscles. No rales wheezes or rhonchi. Cardiac: Heart demonstrates an irregular rhythm. Rate is elevated. Normal S1 and S2. No murmurs on examination. Pulses: The patient has palpable radial pulses bilaterally that are equal in i ntensity Extremities: There was no evidence of hypoperfusion. There is no cyanosis or clubbing. There is no edema. Skin: I maculopapular changes some left arm. Results & Data ([facility]) Vital Signs (Past 12 Hours) Vital Signs Temp Pulse Pulse Pulse Resp BP Pulse Ox 08/21/20 07:25 36.9 C 118 H 18 102/62 99 08/21/20 07:00 121 H 08/21/20 02:54 36.8 C 114 H 19 104/70 97 08/20/20 23:45 37.0 C 111 H 16 111/73 98 Laboratory Results Abnormal Lab Results 08/20/20 08/20/20 08/20/20 06:31 08:38 08:40 WBC RBC Hgb Hct MCV MCH MCHC RDW Std Deviation RDW Coeff of Jarvis Plt Count MPV Immature Gran % (Auto) Neut % (Auto) Lymph % (Auto) [place] % (Auto) Eos % (Auto) Baso % (Auto) Neut # (Auto) Lymph # (Auto) [place] # (Auto) Eos # (Auto) Baso # (Auto) Immature Gran # (Auto) Absolute Nucleated RBC Nucleated RBC % (auto) Sodium Potassium Chloride Carbon Dioxide Anion Gap BUN Creatinine Est Cr Clr Drug Dosing Est GFR ( Amer) Est GFR (Non-Af Amer) BUN/Creatinine Ratio Glucose POC Glucose Osmolality 269 L Calcium Troponin I TSH Free T4 Blood Type O Positive Blood Type Recheck O Positive Antibody Screen NEGATIVE Crossmatch See Detail 08/20/20 08/20/20 08/20/20 08:40 11:17 16:35 WBC RBC Hgb Hct MCV MCH MCHC RDW Std Deviation RDW Coeff of Jarvis Plt Count MPV Immature Gran % (Auto) Neut % (Auto) Lymph % (Auto) [place] % (Auto) Eos % (Auto) Baso % (Auto) Neut # (Auto) Lymph # (Auto) [place] # (Auto) Eos # (Auto) Baso # (Auto) Immature Gran # (Auto) Absolute Nucleated RBC Nucleated RBC % (auto) Sodium Potassium Chloride Carbon Dioxide Anion Gap BUN Creatinine Est Cr Clr Drug Dosing Est GFR ( Amer) Est GFR (Non-Af Amer) BUN/Creatinine Ratio Glucose POC Glucose 93 137 H Osmolality Calcium Troponin I < 0.015 TSH 0.622 Free T4 1.55 Blood Type Blood Type Recheck Antibody Screen Crossmatch 08/20/20 08/21/20 08/21/20 20:11 07:20 07:20 WBC 2.19 L RBC 3.57 L Hgb 9.9 L D Hct 28.7 L MCV 80.4 MCH 27.7 MCHC 34.5 RDW Std Deviation 46.9 H RDW Coeff of Jarvis 16.3 H Plt Count 118 L MPV 10.9 H Immature Gran % (Auto) 1.8 Neut % (Auto) 35.6 Lymph % (Auto) 26.0 [place] % (Auto) 35.6 Eos % (Auto) 0.5 Baso % (Auto) 0.5 Neut # (Auto) 0.78 L* Lymph # (Auto) 0.57 L [place] # (Auto) 0.78 H Eos # (Auto) 0.01 Baso # (Auto) 0.01 Immature Gran # (Auto) 0.04 H Absolute Nucleated RBC 0.02 H Nucleated RBC % (auto) 0.9 Sodium 134 L Potassium 3.4 L Chloride 102 Carbon Dioxide 24 Anion Gap 8.0 BUN 2 L Creatinine 0.45 L Est Cr Clr Drug Dosing 201.2 Est GFR ( Amer) 144.6 Est GFR (Non-Af Amer) 124.7 BUN/Creatinine Ratio 4.7 L Glucose 126 H POC Glucose 118 H Osmolality Calcium 8.0 L Troponin I TSH Free T4 Blood Type Blood Type Recheck Antibody Screen Crossmatch 08/21/20 07:25 WBC RBC Hgb Hct MCV MCH MCHC RDW Std Deviation RDW Coeff of Jarvis Plt Count MPV Immature Gran % (Auto) Neut % (Auto) Lymph % (Auto) [place] % (Auto) Eos % (Auto) Baso % (Auto) Neut # (Auto) Lymph # (Auto) [place] # (Auto) Eos # (Auto) Baso # (Auto) Immature Gran # (Auto) Absolute Nucleated RBC Nucleated RBC % (auto) Sodium Potassium Chloride Carbon Dioxide Anion Gap BUN Creatinine Est Cr Clr Drug Dosing Est GFR ( Amer) Est GFR (Non-Af Amer) BUN/Creatinine Ratio Glucose POC Glucose 133 H Osmolality Calcium Troponin I TSH Free T4 Blood Type Blood Type Recheck Antibody Screen Crossmatch PG Care Time/CCT Total # of Minutes Spent Total Time Spent with Patient: Total time spent is greater than 50% in coordination of care (as documented) at patient's floor/unit and/or counseling patient: Coding Level of Care Code 39167 Subseq Hosp Care Lvl 2 Diagnoses Atrial fibrillation with rapid ventricular response I48.91
[2020-08-21] MEDS: INSULIN GLARGINE SOLOSTAR 100 UNITS/ML 3 ML PEN SC SCH (09:39)
[2020-08-21] MEDS: METOPROLOL TARTRATE 25 MG TAB PO SCH ×2 (11:44→18:00)
--- NOTE | 2020-08-21 17:07 | Hospitalist Progress Note ---
Date of Service August 21, 2020 Assessment & Plan (1) Atrial fibrillation with rapid ventricular response: Cardiology monitoring Change to amiodarone infusion No symptoms, dizziness resolved Continue Anticoagulation Present on Admission?: Yes (2) Dizziness: resolved Present on Admission?: Yes (3) Pancytopenia due to antineoplastic chemotherapy: responded well to blood transfusion improving Neutropenia, continue precautions Serial labs Present on Admission?: Yes (4) Esophageal cancer: Currently receiving Chemotherapy. Difficulty with dietary intake, poor appetite pain well controlled no dysphagia, change diet to regulatr to help with additional food options. Present on Admission?: Yes (5) Fall: Neg Ct (6) Head injury: neg CT. no new symptoms Present on Admission?: Yes (7) Hx of type 2 diabetes mellitus: Diet control, continue regular BS monitoring Change to regular diet and will treat elevations if needed Present on Admission?: Yes (8) Hypomagnesemia: corrected, continue monitoring with poor intake Dietary consulted Present on Admission?: Yes (9) Malnutrition: Dietary consulted Plan on additonal supplementation Pt wuld prefer to avoid PPN at this time Admission and Anticipated Discharge Date Admission Date: August 19, 2020 Subjective pt seen with his . he has no complaints othr than continued hunger and ge nerally tired. Overall he is unchanged in last 24 hrs. Difficulty eating due to abnormal taste and textures, no appetite with weighht lose over last 4 weeks with Chemo. He would like to be able to eat more options as his choices are limited with the above concerns. No new CP, dyspnea or palpitations. Ongoing eval with cardiology. no difficulty with current meds. Review of Systems Review of Systems: All systems reviewed & are unremarkable except as noted in Subjective Physical Exam Constitutional: + ill appearing Respiratory: normal respiratory effort, lungs clear to auscultation Cardiovascular: Rate/Rhythm: + tachycardic and + irregularly irregular Gastrointestinal (Abdomen): Inspection/Auscultation: abdomen normal to inspection; no abdominal edema Musculoskeletal: Extremities: extremities normal to inspection Skin: no rashes, warm and dry Results & Data Results & Data ([facility]) Vital Signs (Past 12 Hours) Vital Signs Temp Pulse Pulse Resp BP Pulse Ox 08/21/20 15:00 37.2 C 100 H 20 117/78 100 08/21/20 14:51 107 H 08/21/20 11:13 36.8 C 103 H 18 114/73 98 08/21/20 07:25 36.9 C 118 H 18 102/62 99 08/21/20 07:00 121 H Laboratory Results Laboratory Results - last 24 hr 08/20/20 08/21/20 08/21/20 20:11 07:20 07:20 WBC 2.19 L RBC 3.57 L Hgb 9.9 L D Hct 28.7 L MCV 80.4 MCH 27.7 MCHC 34.5 RDW Std Deviation 46.9 H RDW Coeff of Jarvis 16.3 H Plt Count 118 L MPV 10.9 H Immature Gran % (Auto) 1.8 Neut % (Auto) 35.6 Lymph % (Auto) 26.0 [place] % (Auto) 35.6 Eos % (Auto) 0.5 Baso % (Auto) 0.5 Neut # (Auto) 0.78 L* Lymph # (Auto) 0.57 L [place] # (Auto) 0.78 H Eos # (Auto) 0.01 Baso # (Auto) 0.01 Immature Gran # (Auto) 0.04 H Absolute Nucleated RBC 0.02 H Nucleated RBC % (auto) 0.9 Sodium 134 L Potassium 3.4 L Chloride 102 Carbon Dioxide 24 Anion Gap 8.0 BUN 2 L Creatinine 0.45 L Est Cr Clr Drug Dosing 201.2 Est GFR ( Amer) 144.6 Est GFR (Non-Af Amer) 124.7 BUN/Creatinine Ratio 4.7 L Glucose 126 H POC Glucose 118 H Calcium 8.0 L 08/21/20 08/21/20 08/21/20 07:25 11:08 16:16 WBC RBC Hgb Hct MCV MCH MCHC RDW Std Deviation RDW Coeff of Jarvis Plt Count MPV Immature Gran % (Auto) Neut % (Auto) Lymph % (Auto) [place] % (Auto) Eos % (Auto) Baso % (Auto) Neut # (Auto) Lymph # (Auto) [place] # (Auto) Eos # (Auto) Baso # (Auto) Immature Gran # (Auto) Absolute Nucleated RBC Nucleated RBC % (auto) Sodium Potassium Chloride Carbon Dioxide Anion Gap BUN Creatinine Est Cr Clr Drug Dosing Est GFR ( Amer) Est GFR (Non-Af Amer) BUN/Creatinine Ratio Glucose POC Glucose 133 H 194 H 99 Calcium Medications Administered Current Inpatient Medications Apixaban (Apixaban 5 Mg Tablet) 5 mg PO BID MARIA Stop: 09/18/20 20:59 Last Admin: 08/21/20 08:29 Dose: 5 mg Documented by: Dextrose (Dextrose 50% 50 Ml Syringe) 25 - 50 ml IV UD PRN; Protocol PRN Reason: Hypoglycemia Protocol Stop: 09/19/20 00:42 Glucagon (Glucagon For Inj 1 Mg Vial) 1 mg SQ UD PRN; Protocol PRN Reason: Hypoglycemia Protocol Stop: 09/19/20 00:42 Glucose (Glucose 10 Tabs/Tube) 4 - 8 tabs PO UD PRN; Protocol PRN Reason: Hypoglycemia Protocol Stop: 09/19/20 00:42 Glucose (Glucose 40% Gel 15 Gm Tube) 15 - 30 gm PO UD PRN; Protocol PRN Reason: Hypoglycemia Protocol Stop: 09/19/20 00:42 Heparin Sodium (Porcine) (Heparin 100 Unit/Ml 5ml Flush) 5 ml FLUSH PRN PRN PRN Reason: Flush Stop: 09/20/20 02:52 Potassium Chloride/Sodium Chloride (Normal Saline W/20 Meq Kcl) 20 meq in 1,000 mls @ 100 mls/hr IV .Q10H MARIA Stop: 09/19/20 08:29 Last Admin: 08/21/20 14:44 Dose: 100 mls/hr Documented by: Amiodarone HCl/Dextrose (Nexterone / D5w) 360 mg in 200 mls @ 16.667 mls/hr IV .Q12H MARIA Stop: 09/19/20 14:59 Last Admin: 08/21/20 14:44 Dose: 0.5 mg/min, 16.7 mls/hr Documented by: Insulin Aspart (Insulin Aspart 100 Units/Ml 3 Ml Pen) 0 units SC ACHS MARIA Stop: 09/19/20 00:42 Last Admin: 08/21/20 12:38 Dose: 8 units Documented by: Insulin Glargine (Insulin Glargine Solostar 100 Units/Ml 3 Ml Pen) 15 units SC DAILY MARIA Stop: 09/19/20 00:42 Last Admin: 08/21/20 09:39 Dose: 15 units Documented by: Metoprolol Tartrate (Metoprolol Tartrate 1 Mg/Ml Vial) 2.5 mg IV Q4 PRN PRN Reason: Tachycardia Stop: 09/19/20 00:00 Metoprolol Tartrate (Metoprolol Tartrate 25 Mg Tab) 12.5 mg PO Q6 MARIA Stop: 09/20/20 11:59 Last Admin: 08/21/20 11:44 Dose: 12.5 mg Documented by: Miscellaneous (Carbohydrates For Hypoglycemia ) 15 - 30 gm PO UD PRN PRN Reason: Hypoglycemia Protocol Stop: 09/19/20 00:42 Ondansetron HCl (Ondansetron Inj 2 Mg/Ml 2 Ml Vial) 4 mg IV Q6H PRN PRN Reason: Nausea Stop: 09/18/20 18:03 Pantoprazole Sodium (Pantoprazole 40 Mg Tab) 40 mg PO BID [facility] Stop: 09/18/20 20:59 Last Admin: 08/21/20 08:29 Dose: 40 mg Documented by: Potassium Chloride (Potassium Chloride Crtab 20 Meq Tabcr) 20 meq PO BID [facility] Stop: 09/19/20 08:59 Last Admin: 08/21/20 08:29 Dose: 20 meq Documented by: PG Care Time/CCT Total # of Minutes Spent Total Time Spent with Patient: Total time spent is greater than 50% in coordination of care (as documented) at patient's floor/unit and/or counseling patient: Coding Level of Care Code 05665 Subseq Hosp Care Lvl 2 Diagnoses Atrial fibrillation with rapid ventricular response I48.91 Dizziness R42 Pancytopenia due to antineoplastic chemotherapy D61.810; T45.1X5A Esophageal cancer C15.9 Fall W19.XXXA Head injury S09.90XA Hx of type 2 diabetes mellitus Z86.39 Hypomagnesemia E83.42 Malnutrition E46
[2020-08-22] MEDS: NSS + 20MEQ KCL 20 MEQ/1,000 ML BAG IV SCH ×2 (00:03→10:39)
[2020-08-22] MEDS: METOPROLOL TARTRATE 25 MG TAB PO SCH ×3 (00:04→12:30)
[2020-08-22 06:21] LABS: Basophils # (auto) 0.01 K/uL (0-0.2); Basophils % (auto) 0.3 %; Hematocrit (blood only) 27.4 % (42-52); Immature Granulocytes # (auto) 0.06 K/uL (0.00-0.02); Immature Granulocytes % (auto) 2.1 %; Lymphocytes % (auto) 20.9 %; Mean Corpuscular Hemoglobin 26.9 pg (25-34); Mean Corpuscular Hgb Conc 32.8 g/dL (32-36); Mean Corpuscular Volume 81.8 fL (80-100); Mean Platelet Volume 10.8 fL (7.4-10.4); Monocytes # (auto) 0.82 K/uL (0.11-0.59); Monocytes % (auto) 28.6 %; Neutrophils # (auto) 1.38 K/uL (1.4-6.5); Neutrophils % (auto) 48.1 %; Platelet Count 145 K/uL (130-400); RDW Standard Deviation 49.1 fL (36.4-46.3); Red Blood Count 3.35 M/uL (4.7-6.1); White Blood Count 2.87 K/uL (4.8-10.8)
[2020-08-22 06:56] LABS: Albumin Level 2.2 gm/dl (3.4-5.0); BUN Creatinine Ratio 4.3 (10-20); Calcium 7.8 mg/dl (8.5-10.1); Creatinine Clr Calc Pharmacy 170.8 ml/min; Est GFR (African American) 135.2; Est GFR (Non-African American) 116.6; Magnesium 1.1 mg/dl (1.8-2.4); Potassium 3.9 mmol/L (3.5-5.1)
[2020-08-22 06:57] LABS: BUN Creatinine Ratio 5.9 (10-20); Calcium 7.8 mg/dl (8.5-10.1); Creatinine Clr Calc Pharmacy 170.8 ml/min; Est GFR (African American) 135.2; Est GFR (Non-African American) 116.6; Potassium 3.9 mmol/L (3.5-5.1)
[2020-08-22 06:59] LABS: Albumin Globulin Ratio 0.9 (0.9-2); Bilirubin,Total 0.8 mg/dl (0.2-1); Globulin 2.6 gm/dl (2.5-4.0); Total Protein 4.8 gm/dl (6.4-8.2)
[2020-08-22] MEDS: POTASSIUM CHLORIDE CRTAB 20 MEQ TABCR PO SCH (08:06)
[2020-08-22] MEDS: PANTOprazole 40 MG TAB PO SCH (08:06)
[2020-08-22] MEDS: INSULIN ASPART 100 UNITS/ML 3 ML PEN SC SCH ×2 (09:00→12:31)
[2020-08-22] MEDS: INSULIN GLARGINE SOLOSTAR 100 UNITS/ML 3 ML PEN SC SCH (09:01)
--- NOTE | 2020-08-22 09:02 | Hospitalist Progress Note ---
Date of Service August 22, 2020 Assessment & Plan (1) Atrial fibrillation with rapid ventricular response: Cardiology monitoring Change to amiodarone infusion No symptoms, dizziness resolved Continue Anticoagulation (2) Dizziness: resolved (3) Pancytopenia due to antineoplastic chemotherapy: responded well to blood transfusion improving Neutropenia, continue precautions Serial labs (4) Esophageal cancer: Currently receiving Chemotherapy. Difficulty with dietary intake, poor appetite pain well controlled no dysphagia, change diet to regulatr to help with additional food options. (5) Fall: Neg Ct (6) Head injury: neg CT. no new symptoms (7) Hx of type 2 diabetes mellitus: Diet control, continue regular BS monitoring Change to regular diet and will treat elevations if needed (8) Hypomagnesemia: corrected, continue monitoring with poor intake Dietary consulted (9) Malnutrition: Dietary consulted Plan on additonal supplementation Pt wuld prefer to avoid PPN at this time Admission and Anticipated Discharge Date Admission Date: August 19, 2020 Results & Data Results & Data ([facility]) Vital Signs (Past 12 Hours) Vital Signs Temp Pulse Pulse Pulse Resp BP Pulse Ox 08/22/20 07:42 98.6 F 67 20 92/57 L 99 08/22/20 07:18 64 08/22/20 03:38 99.5 F 71 18 115/71 96 08/21/20 23:37 99.0 F 69 22 108/69 99 PG Care Time/CCT Total # of Minutes Spent Total Time Spent with Patient: Total time spent is greater than 50% in coordination of care (as documented) at patient's floor/unit and/or counseling patient: Coding Diagnoses Atrial fibrillation with rapid ventricular response I48.91 Dizziness R42 Pancytopenia due to antineoplastic chemotherapy D61.810; T45.1X5A Esophageal cancer C15.9 Fall W19.XXXA Head injury S09.90XA Hx of type 2 diabetes mellitus Z86.39 Hypomagnesemia E83.42 Malnutrition E46
[2020-08-22] MEDS: APIXABAN 5 MG TABLET PO SCH (10:39)
--- NOTE | 2020-08-22 11:00 | Cardiology Progress Note ---
Date of Service August 22, 2020 Assessment & Plan (1) Atrial fibrillation with rapid ventricular response: 2. Esophageal cancer 3. Type 2 diabetes 4. History of left upper extremity DVT-- on Eliquis 5. Pancytopenia He converted to sinus rhythm proximally 6:00 p.m. yesterday. While there are several options for a discharge medical regimen, I think it would be worth trying to prevent additional episodes of atrial fibrillation. I would suggest discharge on amiodarone 400 mg twice daily for 1 week at which point the dose can be reduced to 200 mg daily. I do not believe he requires beta-blockade in addition to amiodarone at this point. He will continue his current dose of Eliquis. Admission and Anticipated Discharge Date Admission Date: August 19, 2020 Subjective This morning patient claims to be feeling well. He has been ambulatory around his room. He did not report any recurrent episodes of dizziness, lightheadedness or syncope. No sense of palpitation. Review of Systems Review of Systems: Per HPI Physical Exam Physical Exam: The patient is alert and oriented. Mood and affect appeared normal. He answered all questions appropriately. HEENT: Pupils are equal and reactive to light and accommodation. Extraocular movements are intact. The sclerae are anicteric. Neuro: Cranial nerves intact (wearing mask) Lungs: Clear to auscultation bilaterally. He has good air movement without use of accessory muscles. No rales wheezes or rhonchi. Cardiac: Heart demonstrates a regular rhythm. Rate is normal. Normal S1 and S2. No murmurs on examination. Pulses: The patient has palpable radial pulses bilaterally that are equal in intensity Extremities: There was no evidence of hypoperfusion. There is no cyanosis or clubbing. There is no edema. Skin: I maculopapular changes on the left arm. Results & Data ([facility]) Vital Signs (Past 12 Hours) Vital Signs Temp Pulse Pulse Pulse Resp BP Pulse Ox 08/22/20 07:42 37 C 67 20 92/57 L 99 08/22/20 07:18 64 08/22/20 03:38 37.5 C 71 18 115/71 96 08/21/20 23:37 37.2 C 69 22 108/69 99 Laboratory Results Abnormal Lab Results 08/21/20 08/21/20 08/21/20 11:08 16:16 20:00 WBC RBC Hgb Hct MCV MCH MCHC RDW Std Deviation RDW Coeff of Jarvis Plt Count MPV Immature Gran % (Auto) Neut % (Auto) Lymph % (Auto) [place] % (Auto) Eos % (Auto) Baso % (Auto) Neut # (Auto) Lymph # (Auto) [place] # (Auto) Eos # (Auto) Baso # (Auto) Immature Gran # (Auto) Sodium Potassium Chloride Carbon Dioxide Anion Gap BUN Creatinine Est Cr Clr Drug Dosing Est GFR ( Amer) Est GFR (Non-Af Amer) BUN/Creatinine Ratio Glucose POC Glucose 194 H 99 143 H Calcium Magnesium Total Bilirubin AST ALT Alkaline Phosphatase Total Protein Albumin Globulin Albumin/Globulin Ratio 08/22/20 08/22/20 08/22/20 05:54 05:54 05:54 WBC 2.87 L RBC 3.35 L Hgb 9.0 L Hct 27.4 L MCV 81.8 MCH 26.9 MCHC 32.8 RDW Std Deviation 49.1 H RDW Coeff of Jarvis 17.0 H Plt Count 145 MPV 10.8 H Immature Gran % (Auto) 2.1 Neut % (Auto) 48.1 Lymph % (Auto) 20.9 [place] % (Auto) 28.6 Eos % (Auto) 0.0 Baso % (Auto) 0.3 Neut # (Auto) 1.38 L Lymph # (Auto) 0.60 L [place] # (Auto) 0.82 H Eos # (Auto) 0.00 Baso # (Auto) 0.01 Immature Gran # (Auto) 0.06 H Sodium 132 L 132 L Potassium 3.9 3.9 Chloride 102 102 Carbon Dioxide 23 23 Anion Gap 7.0 7.0 BUN 3 L 2 L Creatinine 0.53 L 0.53 L Est Cr Clr Drug Dosing 170.8 170.8 Est GFR ( Amer) 135.2 135.2 Est GFR (Non-Af Amer) 116.6 116.6 BUN/Creatinine Ratio 5.9 L 4.3 L Glucose 90 88 POC Glucose Calcium 7.8 L 7.8 L Magnesium 1.1 L Total Bilirubin 0.8 AST 18 ALT 17 Alkaline Phosphatase 76 Total Protein 4.8 L Albumin 2.2 L Globulin 2.6 Albumin/Globulin Ratio 0.9 08/22/20 08/22/20 05:54 07:29 WBC RBC Hgb Hct MCV MCH MCHC RDW Std Deviation RDW Coeff of Jarvis Plt Count MPV Immature Gran % (Auto) Neut % (Auto) Lymph % (Auto) [place] % (Auto) Eos % (Auto) Baso % (Auto) Neut # (Auto) Lymph # (Auto) [place] # (Auto) Eos # (Auto) Baso # (Auto) Immature Gran # (Auto) Sodium Potassium Chloride Carbon Dioxide Anion Gap BUN Creatinine Est Cr Clr Drug Dosing Est GFR ( Amer) Est GFR (Non-Af Amer) BUN/Creatinine Ratio Glucose POC Glucose 128 H Calcium Magnesium 1.3 L Total Bilirubin AST ALT Alkaline Phosphatase Total Protein Albumin Globulin Albumin/Globulin Ratio PG Care Time/CCT Total # of Minutes Spent Total Time Spent with Patient: Total time spent is greater than 50% in coordination of care (as documented) at patient's floor/unit and/or counseling patient: Coding Level of Care Code 47120 Subseq Hosp Care Lvl 2 Diagnoses Atrial fibrillation with rapid ventricular response I48.91
[2020-08-22] MEDS: MAGNESIUM SULFATE / D5W 1 GM/100 ML BAG IV SCH ×2 (11:22→12:26)
[2020-08-22] MEDS ORDERED: HEPARIN 100 UNIT/ML 5ML FLUSH FLUSH ONE (14:05)
--- NOTE | 2020-08-22 16:47 | Discharge Summary ---
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 Patient notes that around 9AM this morning he had gotten out of bed to use the restroom when he felt that he was going to be too weak and has asked his to help him back into bed. When attempting to get into bed, he felt that "the room was spinning a little and my legs gave out" causing him to fall and hit the L side of his forehead. Patient notes that he did not pass out at the time and remembers the event. He states that he had chemotherapy on 08/12/20 and that he often gets weak like this 1-2 weeks after his chemotherapy treatments. This is to his recollection his 6th or 8th chemotherapy treatment and is supposedly his last. He notes this is the first time he has fallen secondary to the weakness. He otherwise only notes that he has had 1x episode of diarrhea in the past 3 days and has been eating and drinking his usual amount which is fairly limited. He notes he drinks roughly 1 quart of water and 1 quart of Pedialyte daily and eats very minimal (only a bowel of cheerios this morning) because "nothing tastes good." Otherwise notes that he has had roughly 60lb weight loss since his diagnosis in April due to his lack of appetite. Currently noting that he feels well without dizziness or feelings that his heart is beating funny. Denies any fever, chills, SOB, chest pain. Does note 2/10 mid-epigastric pain that he notes "is always there." Medical Hx: Esophageal adenocarcinoma Apr 2020, GERD, DM2, DVT LUE 1 month prior Surgical Hx: S/P Cataract and L thumb repair Family Hx: Mother DM, Brother DM Social: 1 can chewing tobacco x28 years - quit 15 years ago, 12 beers/week, de nies drug use Principal Diagnosis Atrial fibrillation Anemia associated chemotherapy status post transfusion of 2 unit packed red blood cells Discharge Exam The patient appeared well Vital signs as documented. Lungs are clear to auscultation and appear unlabored Cardiac exam, Rhythm is regular.. No murmurs, rubs or gallops. Abdominal exam reveals normal bowel sounds, soft non tender, no masses Extremities are nonedematous and both pedal pulses are normal. Neurologic exam is alert and oriented, no focal loss of strength or sensation Skin is with blanchable rash on his left arm which occurred after his last infusion of chemotherapy this seems to be a dermatitis and he is recommended topical agents to try to help and follow-up with his oncological provider Psychologically is without concerns for anxiety or depression. Discharge Data Allergies Allergy/AdvReac Type Severity Reaction Status Date / Time No Known Allergies Allergy Verified 08/19/20 15:49 Consultations 08/19/20 17:07 ED Decision to Admit Stat 08/20/20 00:43 Consult Cardiology Routine 08/20/20 08:28 Consult Cardiology Routine Ordered Studies 08/19/20 14:19 CT cervical spine wo con Stat CT head/brain wo con Stat Hospital Course (1) Atrial fibrillation with rapid ventricular response: Resolution of atrial fibrillation with amiodarone. Dr. Neal recommends loading the patient orally with amiodarone over the next 1 week, 400 twice daily for 1 week then 200 once a day continuing anticoagulation with Eliquis therapy Echocardiogram performed 08/20/2020 left ventricular systolic functions normal no regional wall abnormalities, concentric LVH, EF 50-55, mild mitral regurg. Left atrium is mildly dilated borderline right atrial enlargement no PFO or ASD seen (2) Dizziness: resolved (3) Pancytopenia due to antineoplastic chemotherapy: responded well to blood transfusion 2 units packed red blood cells improving Neutropenia, patient no longer neutropenic at discharge (4) Esophageal cancer: Patient status post last dose of chemotherapy according to his .. No difficulty with swallowing during his hospital stay pain well controlled (5) Fall: Neg Ct head and cervical spine (6) Head injury: neg CT. no new symptoms (7) Hx of type 2 diabetes mellitus: Diet control, continue regular BS monitoring Change to regular diet and will treat elevations if needed resume metformin after discharge (8) Hypomagnesemia: Likely chemotherapeutic related patient receiving additional intravenous magnesium prior to discharge (9) Malnutrition: Continue to augment nutrition with [id number] nutritional supplements while at home Total Time Total Time Spent Total Time Spent (In Minutes): It required greater than 30 minutes to prepare this patient for discharge Discharge Plan Discharge Items Patient Disposition: Home - Self-Care Reason For Visit: NEW ONSET AFIB, HX ESOPHAGEAL CANCER, FALL Discharge Diagnosis: atrial fibrillation, converted to nsr Activity: Per Instructions section Activity Comment: slowly increase activity Non-emergency contact: Primary Care Provider Call non-emergency contact if: your symptoms worsen Follow-up/Referrals: Remedios Miranda DO [Primary Care Provider] - Lg Neal MD [Physician] - Diet: Carb Consistent or DM2 Addtl Attending Provider Instructions: please take you new medication for your heart at 2 pills twice a day for one week then decrease to once pill a day ok to resume your metformin 08/23/20 Pending Studies at Discharge: No Stand-Alone Forms: My [facility] Within Reach, Smoking Cessation Medications and DC Order Prescriptions: New amiodarone [Pacerone] 200 mg tablet 200 mg PO UD Qty: 60 RF: 5 Continued metformin 500 mg tablet 500 mg PO BID Qty: 60 RF: 1 Eliquis 5 mg tablet 5 mg PO BID RF: 0 omeprazole 40 mg capsule,delayed release(DR/EC) 40 mg PO BID RF: 0 Discharge Orders: Discharge Order (Routine); Ordered 08/22/20 Ordered By: Cesar Larsen/Other Patient Handouts: High Blood Sugar (Hyperglycemia), Hypoglycemia (Low Blood Sugar), Managing Type 2 Diabetes, 5 Steps for Eating Healthier, A1C Admission Data Admit Date/Time: 08/19/20 18:04 Attending Provider: Cesar Link Admit Provider: Cesar Street Primary Care Provider: Remedios Miranda Other Providers: Yang Lawrence ; Noble Calderón ; Lamont Molina ; Issa Pat ; Mann Michelle ; Felice Castro ; Derek Santos Jr ; Art Lyons ; Nga Thompson ; Tammy Rojas ; Lg Martinez ; Lg Neal ; Sai Joe ; Darwin Tang ; Teressa Becerra ; Ivette Bustillo ; Dyllan Flores ; Hector Mccray ; Javy Adkins Other Interventions: Discharge Summary Assessment (RN) Last Done: 08/22/20 13:12 Coding Level of Care Code D/C Day Management >30 mins Diagnoses Atrial fibrillation with rapid ventricular response I48.91 Dizziness R42 Pancytopenia due to antineoplastic chemotherapy D61.810; T45.1X5A Esophageal cancer C15.9 Fall W19.XXXA Head injury S09.90XA Hx of type 2 diabetes mellitus Z86.39 Hypomagnesemia E83.42 Malnutrition E46
== END 2020-08-22 14:30 | disposition home or self-care (01) | DRG 809 ==
LOC: ED 14:05 → 2S 18:04 → SUATTDRO 18:04 → 2S 23:32

== ENCOUNTER 2021-03-05 05:07 | Observation (INO) ==
[2021-03-05] MEDS ORDERED: ONDANSETRON INJ 2 MG/ML 2 ML VIAL IV STA (06:03)
[2021-03-05] MEDS ORDERED: PANTOprazole 40 MG in SYRINGE 0 ML IV ONE ×2 (06:04→12:45)
[2021-03-05 06:12] LABS: Basophils # (auto) 0.01 K/uL (0-0.2); Basophils % (auto) 0.1 %; Eosinophils # (auto) 0.03 K/uL (0-0.5); Eosinophils % (auto) 0.3 %; Hematocrit (blood only) 41.1 % (42-52); Hemoglobin 14.2 g/dL (14.0-18.0); Immature Granulocytes # (auto) 0.01 K/uL (0.00-0.02); Immature Granulocytes % (auto) 0.1 %; Lymphocytes # (auto) 0.63 K/uL (1.2-3.4); Lymphocytes % (auto) 6.7 %; Mean Corpuscular Hemoglobin 33.3 pg (25-34); Mean Corpuscular Hgb Conc 34.5 g/dL (32-36); Mean Corpuscular Volume 96.3 fL (80-100); Monocytes # (auto) 0.54 K/uL (0.11-0.59); Monocytes % (auto) 5.7 %; Neutrophils # (auto) 8.22 K/uL (1.4-6.5); Neutrophils % (auto) 87.1 %; Platelet Count 197 K/uL (130-400); RDW Coefficient of Variation 14.7 % (11.5-14.5); RDW Standard Deviation 51.8 fL (36.4-46.3); Red Blood Count 4.27 M/uL (4.7-6.1); White Blood Count 9.44 K/uL (4.8-10.8)
[2021-03-05] MEDS ORDERED: SODIUM CHLORIDE 0.9% 1000ML 1,000 ML IV SCH (06:15)
[2021-03-05 06:23] LABS: Albumin Level 3.7 gm/dl (3.4-5.0); BUN Creatinine Ratio 27.6 (10-20); Calcium 9.2 mg/dl (8.5-10.1); Est GFR (African American) 113.3 ml/min; Est GFR (Non-African American) 97.8 ml/min; Potassium 3.7 mmol/L (3.5-5.1)
[2021-03-05 06:34] LABS: Albumin Globulin Ratio 1.1 (0.9-2); Bilirubin,Total 2.6 mg/dl (0.2-1); Globulin 3.4 gm/dl (2.5-4.0); Total Protein 7.1 gm/dl (6.4-8.2)
--- NOTE | 2021-03-05 07:05 | XRay Report ---
XR chest 2V PA/lateral CLINICAL HISTORY: esophageal stent COMPARISON STUDY: Chest CT February 04, 2021. FINDINGS: Left subclavian [id number] is in place. There is no pneumothorax or pleural effusion. Th ere is no evidence for pulmonary edema or pneumonia. Cardiomegaly is unchanged. Distal esophageal micheal nt extending into the stomach is unchanged in position since fluoroscopic images of March 04, 2021. No radiographic evidence of pneumomediastinum. IMPRESSION: 1. No change in position of the distal esophageal stent since fluoroscopic images of March 04, 2021. 2. No acute cardiopulmonary findings. ACT 112: Negative or not required by law. Electronically signed by: Madan Cordova M.D. 03/05/2021 7:04 AM
[2021-03-05] MEDS: HYDROmorphone INJ 0.5 MG/0.5 ML SYR IV PRN ×2 (07:18→10:18)
--- NOTE | 2021-03-05 07:21 | Emergency Department Note ---
History of Present Illness General Chief complaint: Vomiting Stated complaint: VOMITING Source: patient and RN notes reviewed Mode of arrival: ambulatory Limitations: no limitations History of Present Illness Provider complaint: Dark coffee-ground vomiting, esophageal cancer with stent placement yesterd Maximum Pain Intensity: 8 This patient is a 60-year-old male who presents to the emergency department with complaints of nausea, vomiting and some mid thoracic chest discomfort. The patient states he had an esophageal stent placed yesterday by Dr. Melchor. He began to vomit and noticed a dark red/coffee-ground component to the emesis. Patient denies any bright red blood or dark stools. He has not been able to tolerate any food or water since he began vomiting approximately 2 hours prior to arrival. He has not yet contacted his clerk of scales. Patient denies any recent fevers, significant abdominal pain. Home Medications Medication Instructions Recorded Confirmed Type apixaban 5 mg tablet (Eliquis) 5 mg PO BID 07/23/20 03/05/21 History Folfox 400 mg IV Q14D 03/05/21 03/05/21 History ondansetron HCl 8 mg tablet 8 mg PO DAILY 03/05/21 03/05/21 History prochlorperazine maleate 10 mg 10 mg PO DAILY 03/05/21 03/05/21 History tablet pantoprazole 40 mg tablet,delayed 40 mg PO QAM #30 tab 03/06/21 Rx release hydrocodone 7.5 mg-acetaminophen 15 ml PO BID PRN #400 ml 03/08/21 Rx 325 mg/15 mL oral solution Allergies Allergy/AdvReac Type Severity Reaction Status Date / Time No Known Drug Allergies Allergy Verified 03/05/21 08:07 Past Med/Surg History Medical History Esophageal cancer (03/2020) GERD (gastroesophageal reflux disease) Hx of benign neoplasm of colon Obesity Surgical History H/O thumb surgery Left History of bilateral cataract extraction History of colonoscopy History of endoscopy EUS 05/05/20 @ [facility] History of esophagogastroduodenoscopy (EGD) Last 09/02/20 @ [facility] History of tooth extraction partial upper and lower History of vascular access device A port left side of chest S/P cataract surgery R/L Family History Mother Diabetes Father Asthma Other No family history of adverse response to anesthesia Denies family history of Ovarian cancer Prostate cancer Myocardial infarction Breast cancer Colorectal cancer Social History Smoking Status: Never smoker Second Hand Exposure: No; Hx Alcohol Use: No Hx Substance Use: No Preferred Language: Swedish Communication Ability: Effective Visual Impairment: No Limitations Hearing Ability: Normal Cardiology Physician Assistant Required: No Beliefs That Will Affect Care: None marital status: Current Living Situation: Spouse current occupational status: employed 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 and A total of 10 systems reviewed and were otherwise negative Physical Exam Vital Signs Vital Signs - 24 hr 03/05/21 05:10 03/05/21 05:30 03/05/21 06:03 Temperature 36.2 C L Temperature Source Temporal Artery Scan Pulse Rate 77 57 L Pulse Rate [Apical] 59 L Pulse Rhythm Regular Pulse Rhythm [Apical] Regular Pulse Strength [Apical] Normal Respiratory Rate 16 9 L 11 L Respiratory Effort / Characteristics Non-Labored Spontaneous Non-Labored Respiratory Depth Normal Normal Respiratory Pattern Regular Blood Pressure 123/91 Blood Pressure [Right Arm] 147/102 H Blood Pressure Mean 101 Blood Pressure Mean [Right Arm] 117 Blood Pressure Position Sitting Blood Pressure Position [Right Arm] Lying Pulse Oximetry 96 97 100 Oxygen Delivery Method Room Air Room Air Room Air Sepsis Recent Fever Within 48 Hours No Sepsis New/Unexplained Change in Mental Status N/A Sepsis Action Taken by Nursing No Action Required Vital signs reviewed. General: Well-appearing 60 yo male, in no significant distress. HEENT: No scleral icterus, PERRLA, neck supple. Atraumatic. Cardiovascular: Regular rate and rhythm, no extra sounds. Pulmonary: Clear to auscultation bilaterally, normal work of breathing. Abdomen: Soft, nontender, nondistended, positive bowel sounds. Musculoskeletal: Atraumatic, no peripheral edema. Neurologic: Patient awake alert and oriented x 3 Skin: Warm, dry, no rash Course Administered Medications Discontinued Medications Hydromorphone HCl (Hydromorphone Inj 0.5 Mg/0.5 Ml Syr) 0.5 mg IV Q30M PRN PRN Reason: Pain Stop: 03/19/21 06:46 Last Admin: 03/05/21 10:18 Dose: 0.5 mg Documented by: [id number] Admin: 03/05/21 07:18 Dose: 0.5 mg Documented by: [id number] Sodium Chloride (Nss 1000ml) 1,000 mls @ 999 mls/hr IV .Q1H1M MARIA Stop: 03/05/21 07:15 Last Infusion: 03/05/21 08:24 Dose: 0 mls/hr Documented by: [id number] Admin: 03/05/21 06:27 Dose: 999 mls/hr Documented by: [id number] Pantoprazole Sodium 40 mg/ (Syringe) 10 mls @ 5 mls/min IV NOW ONE Stop: 03/05/21 06:05 Last Admin: 03/05/21 06:48 Dose: 5 mls/min Documented by: [id number] Sodium Chloride (Nss 1000ml) 1,000 mls @ 125 mls/hr IV .Q8H STA Stop: 03/05/21 15:43 Last Infusion: 03/05/21 15:00 Dose: 0 mls/hr Documented by: [id number] Admin: 03/05/21 07:52 Dose: 125 mls/hr Documented by: [id number] Sodium Chloride (Nss 1000ml) 1,000 mls @ 100 mls/hr IV .Q10H MARIA Stop: 04/04/21 11:16 Last Infusion: 03/06/21 10:50 Dose: 0 mls/hr Documented by: [id number] Infusion: 03/06/21 10:50 Dose: 0 mls/hr Documented by: [id number] Admin: 03/06/21 05:59 Dose: 100 mls/hr Documented by: [id number] Infusion: 03/06/21 05:59 Dose: 100 mls/hr Documented by: [id number] Admin: 03/05/21 20:11 Dose: 100 mls/hr Documented by: [id number] Infusion: 03/05/21 20:11 Dose: 100 mls/hr Documented by: [id number] Admin: 03/05/21 11:00 Dose: 100 mls/hr Documented by: [id number] Pantoprazole Sodium 40 mg/ (Syringe) 10 mls @ 5 mls/min IV ONE ONE Stop: 03/05/21 12:46 Last Admin: 03/05/21 14:35 Dose: 5 mls/min Documented by: [id number] Ondansetron HCl (Ondansetron Inj 2 Mg/Ml 2 Ml Vial) 4 mg IV NOW STA Stop: 03/05/21 06:04 Last Admin: 03/05/21 06:27 Dose: 4 mg Documented by: [id number] Pantoprazole Sodium (Pantoprazole 40 Mg Tab) [facility] [place] Stop: 04/04/21 12:59 Last Admin: 03/06/21 08:18 Dose: 40 mg Documented by: [id number] Admin: 03/05/21 14:35 Dose: 40 mg Documented by: [id number] Prochlorperazine (Prochlorperazine 5 Mg/Ml 2 Ml Vial) Confirm Administered Dose 10 mg .ROUTE .STK-MED ONE Stop: 03/05/21 10:10 Last Admin: 03/05/21 10:18 Dose: 10 mg Documented by: [id number] Medical Decision Making Differential Diagnosis Esophageal obstruction, stent dysfunction, GI bleed, ulceration, stricture Medical Records Attestation: I reviewed the patient's medical records. Home Medications Current Medication List: was personally reviewed by me Laboratory Data Attestation: I reviewed the patient's lab results. Result diagrams: 03/06/21 13:03 03/06/21 06:14 Lab Results 03/05/21 03/05/21 03/05/21 Range/Units 05:35 05:35 07:46 WBC 9.44 (4.8-10.8) K/uL RBC 4.27 L (4.7-6.1) M/uL Hgb 14.2 (14.0-18.0) g/dL Hct 41.1 L (42-52) % MCV 96.3 (80-100) fL MCH 33.3 (25-34) pg MCHC 34.5 (32-36) g/dL RDW Std Deviation 51.8 H (36.4-46.3) fL RDW Coeff of Jarvis 14.7 H (11.5-14.5) % Plt Count 197 (130-400) K/uL MPV 11.0 H (7.4-10.4) fL Immature Gran % (Auto) 0.1 % Neut % (Auto) 87.1 % Lymph % (Auto) 6.7 % [place] % (Auto) 5.7 % Eos % (Auto) 0.3 % Baso % (Auto) 0.1 % Neut # (Auto) 8.22 H (1.4-6.5) K/uL Lymph # (Auto) 0.63 L (1.2-3.4) K/uL [place] # (Auto) 0.54 (0.11-0.59) K/uL Eos # (Auto) 0.03 (0-0.5) K/uL Baso # (Auto) 0.01 (0-0.2) K/uL Immature Gran # (Auto) 0.01 (0.00-0.02) K/uL Sodium 135 L (136-145) mmol/L Potassium 3.7 (3.5-5.1) mmol/L Chloride 103 (98-107) mmol/L Carbon Dioxide 27 (21-32) mmol/L Anion Gap 5.0 (3-11) BUN 22 H (7-18) mg/dl Creatinine 0.80 (0.6-1.4) mg/dl Est Cr Clr Drug Dosing 118.0 ml/min Est GFR ( Amer) 113.3 ml/min Est GFR (Non-Af Amer) 97.8 ml/min BUN/Creatinine Ratio 27.6 H (10-20) Glucose 160 H (70-99) mg/dl Calcium 9.2 (8.5-10.1) mg/dl Total Bilirubin 2.6 H (0.2-1) mg/dl AST 21 (15-37) U/L ALT 34 (12-78) U/L Alkaline Phosphatase 108 (45-117) U/L Total Protein 7.1 (6.4-8.2) gm/dl Albumin 3.7 (3.4-5.0) gm/dl Globulin 3.4 (2.5-4.0) gm/dl Albumin/Globulin Ratio 1.1 (0.9-2) COVID-19 Eval Order Covid19 at [facility] SARS-CoV-2 (PCR) (Negative) 03/05/21 Range/Units 07:46 WBC (4.8-10.8) K/uL RBC (4.7-6.1) M/uL Hgb (14.0-18.0) g/dL Hct (42-52) % MCV (80-100) fL MCH (25-34) pg MCHC (32-36) g/dL RDW Std Deviation (36.4-46.3) fL RDW Coeff of Jarvis (11.5-14.5) % Plt Count (130-400) K/uL MPV (7.4-10.4) fL Immature Gran % (Auto) % Neut % (Auto) % Lymph % (Auto) % [place] % (Auto) % Eos % (Auto) % Baso % (Auto) % Neut # (Auto) (1.4-6.5) K/uL Lymph # (Auto) (1.2-3.4) K/uL [place] # (Auto) (0.11-0.59) K/uL Eos # (Auto) (0-0.5) K/uL Baso # (Auto) (0-0.2) K/uL Immature Gran # (Auto) (0.00-0.02) K/uL Sodium (136-145) mmol/L Potassium (3.5-5.1) mmol/L Chloride (98-107) mmol/L Carbon Dioxide (21-32) mmol/L Anion Gap (3-11) BUN (7-18) mg/dl Creatinine (0.6-1.4) mg/dl Est Cr Clr Drug Dosing ml/min Est GFR ( Amer) ml/min Est GFR (Non-Af Amer) ml/min BUN/Creatinine Ratio (10-20) Glucose (70-99) mg/dl Calcium (8.5-10.1) mg/dl Total Bilirubin (0.2-1) mg/dl AST (15-37) U/L ALT (12-78) U/L Alkaline Phosphatase (45-117) U/L Total Protein (6.4-8.2) gm/dl Albumin (3.4-5.0) gm/dl Globulin (2.5-4.0) gm/dl Albumin/Globulin Ratio (0.9-2) COVID-19 Eval Order SARS-CoV-2 (PCR) NEGATIVE (Negative) Imaging Data Radiologist's Impression: Chest X-Ray 03/05/21 06:04 XR chest 2V PA/lateral CLINICAL HISTORY: esophageal stent COMPARISON STUDY: Chest CT February 04, 2021. FINDINGS: Left subclavian [id number]-a-[id number] is in place. There is no pneumothorax or pleural effusion. There is no evidence for pulmonary edema or pneumonia. Ca rdiomegaly is unchanged. Distal esophageal stent extending into the stomach is unchanged in position since fluoroscopic images of March 04, 2021. No radiographic evidence of pneumomediastinum. IMPRESSION: 1. No change in position of the distal esophageal stent since fluoroscopic images of March 04, 2021. 2. No acute cardiopulmonary findings. ACT 112: Negative or not required by law. Electronically signed by: Madan Cordova M.D. 03/05/2021 7:04 AM Blood Pressure Blood Pressure Findings: Elevated blood pressure Blood Pressure Disposition: further management by hospitalist MDM Narrative This patient was evaluated and appeared to be in no significant distress. IV access was obtained and laboratory work was drawn. An order for cardiac monitoring was placed and the patient is noted to be in sinus bradycardia 55 bpm. Patient was medicated with IV Dilaudid and Zofran. Patient was hydrated with normal saline solution. Chest x-ray was performed and reveals the stent in good position. Patient is noted to be hypertensive and likely attributed to his discomfort. Patient was medicated with IV Protonix. Patient is anticoagulated and likely bleeding in the site of placement. I spoke with Dr. Melchor of gastroenterology as well as Dr. Irving of the hospitalist service. The patient will be evaluated for further management. Impression & Plan Esophageal bleeding, Esophageal cancer Discharge Plan Visit Data Chief Complaint: Vomiting Stated Complaint: VOMITING ED Provider: Elizabeth Apodaca Discharge Problem: Esophageal bleeding, Esophageal cancer Patient Disposition: Admitted As Inpatient Discharge Instructions Interventions: ED Discharge Assessment Last Done: 03/05/21 10:34 Discharge Problem: Esophageal cancer Qualifiers: Malignant neoplasm of esophagus location: unspecified location Qualified Code(s): C15.9 - Malignant neoplasm of esophagus, unspecified
[2021-03-05] MEDS ORDERED: SODIUM CHLORIDE 0.9% 1000ML 1,000 ML IV STA (07:44)
[2021-03-05] MEDS ORDERED: PROCHLORPERAZINE 5 MG/ML 2 ML VIAL ONE (10:09)
[2021-03-05] MEDS: SODIUM CHLORIDE 0.9% 1000ML 1,000 ML IV SCH ×2 (11:00→20:11)
[2021-03-05] MEDS ORDERED: ONDANSETRON INJ 2 MG/ML 2 ML VIAL IV PRN (11:17)
[2021-03-05] MEDS ORDERED: MoRPHine SULFATE 2 MG/ML CARP IV PRN (11:17)
[2021-03-05] MEDS ORDERED: PROCHLORPERAZINE 10 MG in SYRINGE 8 ML IV PRN (11:17)
--- NOTE | 2021-03-05 12:14 | History & Physical Report ---
Date of Service March 05, 2021 Assessment & Plan (1) Nausea & vomiting: Plan: - Presented with N/V, hematemesis and inability to tolerate PO intake following placement of esophageal stent on 03/04. - Unclear etiology - possibly related to recent procedure vs. chemotherapy (started cycle 1 of mFOLFOX on 03/01, disconnected from 5-FU pump on 03/03) vs. other. - H/H levels are stable, will repeat CBC q8hr for close monitoring. - Zofran 8 mg IV q6hr and Compazine 10 mg IV q6hr prn N/V. - NS at 100 cc/hr for additional hydration. - Protonix 40 mg PO daily. - Consulted Dr. Melchor for re-evaluation following procedure; symptoms can last 48-72 hours post procedure. - CLD until Sunday03/07/21 per GI. - Continue to hold Eliquis due to ?acute bleeding; will hold med for an additional 24 hours (can resume on 03/06 if bleeding has resolved). (2) Hematemesis: Plan: - See plan as documented above. (3) Chest pain: Plan: - Likely related to recent procedure. - Will need to rule out cardiac etiology - serial Troponin levels x 2. - Consider EKG for further evaluation. - Morphine 2 mg IV q3hr prn acute pain. (4) Total bilirubin, elevated: Plan: - T. bili level is elevated at 2.6, prev WNL. - Repeat CMP in the morning; consider fractionated bilirubin if necessary. (5) Esophageal cancer: Plan: - Diagnosed in the ; initially received DCF May to followed by Xeloda October to February/2021. - CT scan January/2021 showed progressive disease - he started mFOLFOX6 on 03/01, disconnected from 5-FU pump on 03/03. - His counts will likely drop related to recent chemo but have not started to trend down yet. - Follows with Dr. Kenrick Villatoro, [facility]. (6) Esophageal mass: Plan: - See discussion above, s/p placement of esophageal mass on 03/04. - Also required esophageal stent placement in the fall but was eventually removed. (7) PAF (paroxysmal atrial fibrillation): Plan: - H/o; on Eliquis BID but currently being held due to recent procedure and bleeding. (8) Neuropathy: Plan: - Related to prior chemotherapy. (9) Diabetes mellitus, type 2: Plan: - BG levels slightly elevated, will monitor but hold SSI coverage. (10) History of DVT (deep vein thrombosis): Plan: - Diagnosed in , of LUE. - On Eliquis (has been held since 03/01 for procedure but remains on hold d/t acute hematemesis). (11) DVT prophylaxis: Plan: - Holding home Eliquis due to acute bleeding; will order bilat SCDs. FEN/GI: CLD; IVFs at 100 cc/hr. PPI PO daily. Dispo: Med surg with tele (h/o A. fib) for evaluation of hematemesis and GI consult. FULL CODE Admission and Anticipated Discharge Date Admission Date: March 05, 2021 History of Present Illness Chief Complaint: Nausea/Vomiting Primary Care Provider: Remedios Miranda DO Mr. Kaur is a 60 y/o male with metastatic esophageal cancer, GERD, H/o DVT, Type II DM, Atrial Fibrillation who presents with nausea/vomiting. He underwent esophageal stent placement with GI, Dr. Melchor, on 03/04/21 due to reoccurrence of his underlying esophageal cancer with partial obstruction. The patient was discharged to home post procedure; he has not been able to maintain any PO intake following discharge to home. Per his , he had multiple episodes of coffee ground emesis over the last 12 hours as well. He c/o deep chest pain - per patient, at site of esophagus and not precordial. He denies radiation of chest pain to neck or arms, SOB, fever/chills, severe abd pain, change in bowel habits (is mildly constipated at times). Hgb/Hct levels are stable (14.2/41.1%) on lab work completed this morning. CMP is stable with exception of mild hyponatremia; T. bili is acutely elevated at 2.6, prev WNL at 0.7. CXR negative for change in position of esophageal stent compared to imaging yesterday. The patient does take Eliquis for h/o DVT of the LUE, diagnosed - he d/c'ed Eliquis on Sunday prior to procedure and has not resumed anticoagulation therapy post operatively. In regards to esophageal cancer history, he was diagnosed in the and required placement of stent following diagnosis. He had lung nodules noted on initial staging scans with a biopsy proven left supraclavicular lymph node. The patient received DCF chemo from to followed by Xeloda from October/2020 to February/2021. CT scan in January/2021 did show progression of his disease overall - Dr. Kenrick Villatoro recommended starting mFOLFOX6, first cycle was administered starting 03/01/21. Allergies Allergy/AdvReac Type Severity Reaction Status Date / Time No Known Drug Allergies Allergy Verified 03/05/21 08:07 Home Medications Medication Instructions Recorded Confirmed Type apixaban 5 mg tablet (Eliquis) 5 mg PO BID 07/23/20 03/05/21 History hydrocodone 7.5 mg-acetaminophen 15 ml PO BID PRN #200 ml 02/15/21 03/05/21 Rx 325 mg/15 mL oral solution Folfox 400 mg IV Q14D 03/05/21 03/05/21 History ondansetron HCl 8 mg tablet 8 mg PO DAILY 03/05/21 03/05/21 History prochlorperazine maleate 10 mg 10 mg PO DAILY 03/05/21 03/05/21 History tablet Past Med/Surg History Medical History (Updated 03/05/21 @ 12:32 by Lindsey Worley PA-C) Diabetes mellitus, type 2 Diet controlled Esophageal cancer 04/2020 (chemo) GERD (gastroesophageal reflux disease) History of DVT (deep vein thrombosis) in left arm 07/2020- r/t A-port (placed for chemo tx) Hx of benign neoplasm of colon Neuropathy Obesity PAF (paroxysmal atrial fibrillation) on Eliquis Surgical History H/O thumb surgery Left History of bilateral cataract extraction History of colonoscopy History of endoscopy EUS 05/05/20 @ [facility] History of esophagogastroduodenoscopy (EGD) Last 09/02/20 @ [facility] History of tooth extraction partial upper and lower History of vascular access device A port left side of chest S/P cataract surgery R/L Family History Mother Diabetes Father Asthma Other No family history of adverse response to anesthesia Denies family history of Ovarian cancer Prostate cancer Myocardial infarction Breast cancer Colorectal cancer Social History Smoking Status: Never smoker Second Hand Exposure: No; Do You Dip or Chew Tobacco: No; Hx Alcohol Use: No Hx Substance Use: No Preferred Language: [place] Communication Ability: Effective Visual Impairment: No Limitations Hearing Ability: Normal Sewing Department Supervisor Required: No Beliefs That Will Affect Care: None marital status: Current Living Situation: Spouse current occupational status: employed 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 [employer] How many Children do You have: 3 How many Children do You have Comment: daughters Tahmina and Jannet, employed @ [employer] Feels Safe at Home: Yes Childhood Exposure to Second-Hand Smoke: No caffeine: Yes (coffee 2-3 cups per am) during the past year weight has: increased > 10 lbs Dental Care, Regularly: Yes Physical Activity Frequency: Daily Seatbelt Use: always Sunscreen Use: No Assistive Devices: None Review of Systems Review of Systems: Constitutional: +Fatigue and loss of appetite; Negative for weight loss, night sweats, or fever Eyes: Negative for event change of vision ENT: Negative for epistaxis, nasal discharge, sore throat, or deafness Cardiovascular: +Chest pain; Negative for anginal type chest pain, palpitations, dizziness, diaphoresis Respiratory: Negative for new shortness of breath,hemoptysis, or purulent cough Gastrointestinal: +Nausea/vomiting & hematemesis; Negative for diarrhea Integumentary (skin): Negative for rash or jaundice discoloration Genitourinary: Negative for urinary frequency, hematuria, or dysuria Neurological: Negative for weakness, seizure activity, headache, or dizziness Lymphatic/Hematologic: Negative for petechiae, bleeding or new adenopathy Musculoskeletal: Negative for new joint or back pain Allergic/Immunologic: Negative for unusual rash or pruritis Physical Exam Physical Exam: Constitutional: Chronically ill appearing male, mild distress noted. Respiratory: Lung sounds were generally clear bilaterally. Cardiovascular: Heart was RRR without significant murmur, gallops or rubs. Gastrointestinal: No palpable hepatic or splenomegaly. The abdomen was soft with normal bowel sounds. Lymphatic system: There was no palpable peripheral lymphadenopathy. Musculoskeletal System: The musculoskeletal system seemed concordant with age. Skin: The skin was negative for jaundice. Extremities: Negative for edema or erythema Results & Data Results & Data ([facility]) Vital Signs (Past 12 Hours) Vital Signs Temp Pulse Pulse Resp BP BP Pulse Ox 03/05/21 10:34 76 18 154/73 H 97 03/05/21 09:00 85 18 166/94 H 98 03/05/21 06:03 57 L 11 L 100 03/05/21 05:30 59 L 9 L 147/102 H 97 03/05/21 05:10 36.2 C L 77 16 123/91 96 Laboratory Results 03/05/21 03/05/21 03/05/21 Range/Units 07:46 07:46 05:35 WBC (4.8-10.8) K/uL RBC (4.7-6.1) M/uL Hgb (14.0-18.0) g/dL Hct (42-52) % MCV (80-100) fL MCH (25-34) pg MCHC (32-36) g/dL RDW Std Deviation (36.4-46.3) fL RDW Coeff of Jarvis (11.5-14.5) % Plt Count (130-400) K/uL MPV (7.4-10.4) fL Immature Gran % (Auto) % Neut % (Auto) % Lymph % (Auto) % [place] % (Auto) % Eos % (Auto) % Baso % (Auto) % Neut # (Auto) (1.4-6.5) K/uL Lymph # (Auto) (1.2-3.4) K/uL Kittson # (Auto) (0.11-0.59) K/uL Eos # (Auto) (0-0.5) K/uL Baso # (Auto) (0-0.2) K/uL Immature Gran # (Auto) (0.00-0.02) K/uL Sodium 135 L (136-145) mmol/L Potassium 3.7 (3.5-5.1) mmol/L Chloride 103 (98-107) mmol/L Carbon Dioxide 27 (21-32) mmol/L Anion Gap 5.0 (3-11) BUN 22 H (7-18) mg/dl Creatinine 0.80 (0.6-1.4) mg/dl Est Cr Clr Drug Dosing 118.0 ml/min Est GFR ( Amer) 113.3 ml/min Est GFR (Non-Af Amer) 97.8 ml/min BUN/Creatinine Ratio 27.6 H (10-20) Glucose 160 H (70-99) mg/dl Calcium 9.2 (8.5-10.1) mg/dl Total Bilirubin 2.6 H (0.2-1) mg/dl AST 21 (15-37) U/L ALT 34 (12-78) U/L Alkaline Phosphatase 108 (45-117) U/L Total Protein 7.1 (6.4-8.2) gm/dl Albumin 3.7 (3.4-5.0) gm/dl Globulin 3.4 (2.5-4.0) gm/dl Albumin/Globulin Ratio 1.1 (0.9-2) COVID-19 Eval Order Covid19 at [facility] SARS-CoV-2 (PCR) NEGATIVE (Negative) 03/05/21 Range/Units 05:35 WBC 9.44 (4.8-10.8) K/uL RBC 4.27 L (4.7-6.1) M/uL Hgb 14.2 (14.0-18.0) g/dL Hct 41.1 L (42-52) % MCV 96.3 (80-100) fL MCH 33.3 (25-34) pg MCHC 34.5 (32-36) g/dL RDW Std Deviation 51.8 H (36.4-46.3) fL RDW Coeff of Jarvis 14.7 H (11.5-14.5) % Plt Count 197 (130-400) K/uL MPV 11.0 H (7.4-10.4) fL Immature Gran % (Auto) 0.1 % Neut % (Auto) 87.1 % Lymph % (Auto) 6.7 % Kittson % (Auto) 5.7 % Eos % (Auto) 0.3 % Baso % (Auto) 0.1 % Neut # (Auto) 8.22 H (1.4-6.5) K/uL Lymph # (Auto) 0.63 L (1.2-3.4) K/uL Kittson # (Auto) 0.54 (0.11-0.59) K/uL Eos # (Auto) 0.03 (0-0.5) K/uL Baso # (Auto) 0.01 (0-0.2) K/uL Immature Gran # (Auto) 0.01 (0.00-0.02) K/uL Sodium (136-145) mmol/L Potassium (3.5-5.1) mmol/L Chloride (98-107) mmol/L Carbon Dioxide (21-32) mmol/L Anion Gap (3-11) BUN (7-18) mg/dl Creatinine (0.6-1.4) mg/dl Est Cr Clr Drug Dosing ml/min Est GFR ( Amer) ml/min Est GFR (Non-Af Amer) ml/min BUN/Creatinine Ratio (10-20) Glucose (70-99) mg/dl Calcium (8.5-10.1) mg/dl Total Bilirubin (0.2-1) mg/dl AST (15-37) U/L ALT (12-78) U/L Alkaline Phosphatase (45-117) U/L Total Protein (6.4-8.2) gm/dl Albumin (3.4-5.0) gm/dl Globulin (2.5-4.0) gm/dl Albumin/Globulin Ratio (0.9-2) COVID-19 Eval Order SARS-CoV-2 (PCR) (Negative) Diagnostic Findings CXR 03/05/21: 1. No change in position of the distal esophageal stent since fluoroscopic images of March 04, 2021. 2. No acute cardiopulmonary findings. Code Status & VTE Plan VTE Prophylaxis Plan VTE Prophylaxis will be ordered: Yes Supervising Physician Co-Signing Physician Notes Attending Attestation - Pt seen/examined, chart reviewed, care plan d/w VIDYA Worley. I agree w/ the cunha components of her documentation. 60yo male with known esophageal ca with dx in 2019 presents with coffee-ground emesis and chest symptoms starting yesterday following his esophageal stent placement. Upon presentation today his H/H are stable and vitals are stable. I saw Mr Kaur on the tele unit and he stated that his symptoms are already better and he has had no further coffee-ground emesis. PMH, PSH, allergies, meds, sochx, famhx - reviewed VSS, no fever gen - NAD skin - no pallor mouth - MMM heart - RRR, s1 s2 lungs - cta b/l abd - soft NT ND BS+; no HSM ext - no edema labs reviewed cxr reviewed COVID neg A/P: Coffee-ground emesis and chest discomfort s/p esophageal stent placement on 03/04. Stable vitals and H/H today. Dr Melchor from [facility] has seen - clear liquid, pain control, serial H/H. PPI. No plans for repeat EGD at this time. Yang Irving MD PG Care Time/CCT Total # of Minutes Spent Total Time Spent with Patient: Total time spent is greater than 50% in coordination of care (as documented) at patient's floor/unit and/or counseling patient: Coding Level of Care Code New Pt INT OBSERVATION CARE 50M LVL 2 Patient Type New Diagnoses Nausea & vomiting R11.2 Chest pain R07.9 Total bilirubin, elevated R17 PAF (paroxysmal atrial fibrillation) I48.0 Neuropathy G62.9 Diabetes mellitus, type 2 E11.9 Esophageal cancer C15.9 DVT prophylaxis Z29.9 Esophageal mass K22.8 Hematemesis K92.0 History of DVT (deep vein thrombosis) Z86.718
--- NOTE | 2021-03-05 12:59 | History & Physical Report ---
Date of Service March 05, 2021 Assessment & Plan (1) Esophageal mass: Plan: Patient presenting after recent esophageal stent placement. This unfortunate patient does have advanced esophageal cancer with suspected metastatic disease. Given this palliative esophageal stent was replaced yesterday for alleviation of worsening dysphagia. The patient does have nausea and some chest discomfort which are common after placement of this type of the device. This can last up to 48 to 72 hours and some patients. Recommendations Protonix 40 mg once daily Zofran as you're doing Liquid only diet until Sunday Hold anticoagulation for another 24 hours please Please call with any questions or concerns Admission and Anticipated Discharge Date Admission Date: March 05, 2021 History of Present Illness Chief Complaint: Nausea Primary Care Provider: Remedios Miranda DO The patient is a 60-year-old male with a history of esophageal cancer who presents for evaluation of nausea. 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 Shortly after the procedure the patient was feeling well and had no specific complaints. He was to be on a liquid diet at [facility] and notes that he initially was feeling well at home. Overnight he began to develop progressive nausea and did have an episode of coffee-ground emesis at home. Chest x-ray shows no evidence of stent migration nor perforation. The patient was given a dose of antiemetic in the emergency room and notes that he is starting to feel improved today. The patient is followed for his esophageal cancer by Dr. Villatoro of [facility] in addition to a thoracic surgeon at [facility]. Based on a review his outpatient record it appears that the patient is no longer a surgical candidate due to suspected metastatic disease. Allergies Allergy/AdvReac Type Severity Reaction Status Date / Time No Known Drug Allergies Allergy Verified 03/05/21 08:07 Home Medications Medication Instructions Recorded Confirmed Type apixaban 5 mg tablet (Eliquis) 5 mg PO BID 07/23/20 03/05/21 History hydrocodone 7.5 mg-acetaminophen 15 ml PO BID PRN #200 ml 02/15/21 03/05/21 Rx 325 mg/15 mL oral solution Folfox 400 mg IV Q14D 03/05/21 03/05/21 History ondansetron HCl 8 mg tablet 8 mg PO DAILY 03/05/21 03/05/21 History prochlorperazine maleate 10 mg 10 mg PO DAILY 03/05/21 03/05/21 History tablet Past Med/Surg History Medical History (Updated 03/05/21 @ 12:32 by Lindsey Chung PA-C) Diabetes mellitus, type 2 Diet controlled Esophageal cancer 04/2020 (chemo) GERD (gastroesophageal reflux disease) History of DVT (deep vein thrombosis) in left arm 07/2020- r/t A-port (placed for chemo tx) Hx of benign neoplasm of colon Neuropathy Obesity PAF (paroxysmal atrial fibrillation) on Eliquis Surgical History H/O thumb surgery Left History of bilateral cataract extraction History of colonoscopy History of endoscopy EUS 05/05/20 @ [facility] History of esophagogastroduodenoscopy (EGD) Last 09/02/20 @ [facility] History of tooth extraction partial upper and lower History of vascular access device A port left side of chest S/P cataract surgery R/L Family History Mother Diabetes Father Asthma Other No family history of adverse response to anesthesia Denies family history of Ovarian cancer Prostate cancer Myocardial infarction Breast cancer Colorectal cancer Social History Smoking Status: Never smoker Second Hand Exposure: No; Hx Alcohol Use: Yes Hx Substance Use: No Preferred Language: Vietnamese Communication Ability: Effective Visual Impairment: No Limitations Hearing Ability: Normal Clinical Laboratory Technician Required: No Beliefs That Will Affect Care: None marital status: Current Living Situation: Spouse current occupational status: employed 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 [employer] How many Children do You have: 3 How many Children do You have Comment: daughters Tahmina and Jannet, employed @ [employer] Feels Safe at Home: Yes Childhood Exposure to Second-Hand Smoke: No caffeine: Yes (coffee 2-3 cups per am) during the past year weight has: increased > 10 lbs Dental Care, Regularly: Yes Physical Activity Frequency: Daily Seatbelt Use: always Sunscreen Use: No Assistive Devices: None Review of Systems + malaise; no sweats no ear trauma no cough, no dyspnea and no hemoptysis no chest pain with activity + nausea and + coffee ground emesis; no heartburn and no hematemesis no urinary frequency no radicular pain no rash no falls and no paralysis no suicidal ideation no polydipsia + coagulopathy Physical Exam Eyes: PERRL, conjunctivae normal, anicteric sclerae Neck: trachea midline, no thyromegaly Respiratory: normal respiratory effort, lungs clear to auscultation Cardiovascular: RRR, no murmur, no edema Gastrointestinal (Abdomen): normal bowel sounds, soft, nontender, no hepatosplenomegaly Skin: no rashes, warm and dry Results & Data ([facility]) Vital Signs (Past 12 Hours) Vital Signs Temp Pulse Pulse Resp BP BP Pulse Ox 03/05/21 10:34 76 18 154/73 H 97 03/05/21 09:00 85 18 166/94 H 98 03/05/21 06:03 57 L 11 L 100 03/05/21 05:30 59 L 9 L 147/102 H 97 03/05/21 05:10 36.2 C L 77 16 123/91 96 Laboratory Results Laboratory Results - last 24 hr 03/05/21 03/05/21 03/05/21 05:35 05:35 07:46 WBC 9.44 RBC 4.27 L Hgb 14.2 Hct 41.1 L MCV 96.3 MCH 33.3 MCHC 34.5 RDW Std Deviation 51.8 H RDW Coeff of Jarvis 14.7 H Plt Count 197 MPV 11.0 H Immature Gran % (Auto) 0.1 Neut % (Auto) 87.1 Lymph % (Auto) 6.7 Collier % (Auto) 5.7 Eos % (Auto) 0.3 Baso % (Auto) 0.1 Neut # (Auto) 8.22 H Lymph # (Auto) 0.63 L Collier # (Auto) 0.54 Eos # (Auto) 0.03 Baso # (Auto) 0.01 Immature Gran # (Auto) 0.01 Sodium 135 L Potassium 3.7 Chloride 103 Carbon Dioxide 27 Anion Gap 5.0 BUN 22 H Creatinine 0.80 Est Cr Clr Drug Dosing 118.0 Est GFR ( Amer) 113.3 Est GFR (Non-Af Amer) 97.8 BUN/Creatinine Ratio 27.6 H Glucose 160 H Calcium 9.2 Total Bilirubin 2.6 H AST 21 ALT 34 Alkaline Phosphatase 108 Total Protein 7.1 Albumin 3.7 Globulin 3.4 Albumin/Globulin Ratio 1.1 COVID-19 Eval Order Covid19 at [facility] SARS-CoV-2 (PCR) 03/05/21 07:46 WBC RBC Hgb Hct MCV MCH MCHC RDW Std Deviation RDW Coeff of Jarvis Plt Count MPV Immature Gran % (Auto) Neut % (Auto) Lymph % (Auto) Collier % (Auto) Eos % (Auto) Baso % (Auto) Neut # (Auto) Lymph # (Auto) Collier # (Auto) Eos # (Auto) Baso # (Auto) Immature Gran # (Auto) Sodium Potassium Chloride Carbon Dioxide Anion Gap BUN Creatinine Est Cr Clr Drug Dosing Est GFR ( Amer) Est GFR (Non-Af Amer) BUN/Creatinine Ratio Glucose Calcium Total Bilirubin AST ALT Alkaline Phosphatase Total Protein Albumin Globulin Albumin/Globulin Ratio COVID-19 Eval Order SARS-CoV-2 (PCR) NEGATIVE Diagnostic Findings R chest 2V PA/lateral CLINICAL HISTORY: esophageal stent COMPARISON STUDY: Chest CT February 04, 2021. FINDINGS: Left subclavian [id number] is in place. There is no pneumothorax or pleural effusion. There is no evidence for pulmonary edema or pneumonia. Cardiomegaly is unchanged. Distal esophageal stent extending into the stomach is unchanged in position since fluoroscopic images of March 04, 2021. No radiographic evidence of pneumomediastinum. IMPRESSION: 1. No change in position of the distal esophageal stent since fluoroscopic images of March 04, 2021. 2. No acute cardiopulmonary findings. Code Status & VTE Plan VTE Prophylaxis Plan VTE Prophylaxis will be ordered: Yes
[2021-03-05 13:13] LABS: Hematocrit (blood only) 38.3 % (42-52); Hemoglobin 13.5 g/dL (14.0-18.0); Mean Corpuscular Hemoglobin 33.4 pg (25-34); Mean Corpuscular Hgb Conc 35.2 g/dL (32-36); Mean Corpuscular Volume 94.8 fL (80-100); Mean Platelet Volume 10.9 fL (7.4-10.4); Platelet Count 179 K/uL (130-400); RDW Coefficient of Variation 14.5 % (11.5-14.5); RDW Standard Deviation 50.9 fL (36.4-46.3); Red Blood Count 4.04 M/uL (4.7-6.1)
[2021-03-05] MEDS: PANTOprazole 40 MG TAB PO SCH (14:35)
[2021-03-05 20:55] LABS: Hematocrit (blood only) 36.6 % (42-52); Hemoglobin 12.7 g/dL (14.0-18.0); Mean Corpuscular Hemoglobin 32.9 pg (25-34); Mean Corpuscular Hgb Conc 34.7 g/dL (32-36); Mean Corpuscular Volume 94.8 fL (80-100); Mean Platelet Volume 10.9 fL (7.4-10.4); Platelet Count 166 K/uL (130-400); RDW Coefficient of Variation 14.7 % (11.5-14.5); RDW Standard Deviation 50.9 fL (36.4-46.3); Red Blood Count 3.86 M/uL (4.7-6.1); White Blood Count 9.09 K/uL (4.8-10.8)
[2021-03-06] MEDS: SODIUM CHLORIDE 0.9% 1000ML 1,000 ML IV SCH (05:59)
[2021-03-06 06:24] LABS: Hematocrit (blood only) 34.9 % (42-52); Hemoglobin 12.2 g/dL (14.0-18.0); Mean Corpuscular Hemoglobin 32.9 pg (25-34); Mean Corpuscular Volume 94.1 fL (80-100); Mean Platelet Volume 10.8 fL (7.4-10.4); Platelet Count 173 K/uL (130-400); RDW Coefficient of Variation 14.5 % (11.5-14.5); Red Blood Count 3.71 M/uL (4.7-6.1); White Blood Count 9.83 K/uL (4.8-10.8)
[2021-03-06 06:58] LABS: Albumin Level 3.1 gm/dl (3.4-5.0); BUN Creatinine Ratio 18.9 (10-20); Bilirubin,Total 2.3 mg/dl (0.2-1); Calcium 8.4 mg/dl (8.5-10.1); Creatinine Clr Calc Pharmacy 127.1 ml/min; Est GFR (African American) 116.4 ml/min; Est GFR (Non-African American) 100.4 ml/min; Potassium 3.8 mmol/L (3.5-5.1); Total Protein 6.1 gm/dl (6.4-8.2)
[2021-03-06] MEDS: PANTOprazole 40 MG TAB PO SCH (08:18)
--- NOTE | 2021-03-06 09:51 | Gastroenterology Progress Note ---
Date of Service March 06, 2021 Assessment & Plan (1) Esophageal mass: Plan: The patient is now several days status post esophageal stent placement for recurrent esophageal cancer. His chest pain is now resolved which is expected given the need of the stent to expand over 24 to 48 hours. From the standpoint of his diet the patient continues to follow the recommendations from several days ago. He can be advanced to a full liquid diet and potentially discharged today. Please call with any questions or concerns, GI to sign off Admission and Anticipated Discharge Date Admission Date: March 05, 2021 Subjective The patient reports that his chest discomfort is much improved as compared to yesterday. He reports that liquids are going down without any difficulty. Review of Systems Constitutional: no sweats and no malaise Eyes: no diplopia Respiratory: no change in sputum, no hemoptysis and no snoring Cardiovascular: no chest pain with activity Physical Exam Constitutional: WD/WN, vitals as above Neck: trachea midline, no thyromegaly Respiratory: normal respiratory effort, lungs clear to auscultation Cardiovascular: Rate/Rhythm: regular rate Gastrointestinal (Abdomen): normal bowel sounds, soft, nontender, no hepatosplenomegaly Results & Data ([facility]) Vital Signs (Past 12 Hours) Vital Signs Temp Pulse Pulse Resp BP Pulse Ox 03/06/21 07:39 36.7 C 59 L 18 158/85 H 96 03/06/21 07:08 67 03/06/21 03:48 37 C 63 18 162/89 H 96 03/06/21 00:44 61 03/05/21 23:48 37.2 C 65 18 137/86 96
[2021-03-06 13:13] LABS: Hematocrit (blood only) 35.6 % (42-52); Hemoglobin 12.7 g/dL (14.0-18.0); Mean Corpuscular Hgb Conc 35.7 g/dL (32-36); Mean Corpuscular Volume 95.2 fL (80-100); Mean Platelet Volume 11.2 fL (7.4-10.4); Platelet Count 169 K/uL (130-400); RDW Coefficient of Variation 14.4 % (11.5-14.5); RDW Standard Deviation 49.9 fL (36.4-46.3); Red Blood Count 3.74 M/uL (4.7-6.1); White Blood Count 9.27 K/uL (4.8-10.8)
--- NOTE | 2021-03-06 13:52 | Discharge Summary ---
Date of Service date of admission - March 05, 2021 date of discharge - March 06, 2021 Admission HPI Per Admitting Provider The patient is a 60-year-old male with a history of esophageal cancer who presents for evaluation of nausea. 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 Shortly after the procedure the patient was feeling well and had no specific complaints. He was to be on a liquid diet at home and notes that he initially was feeling well at home. Overnight he began to develop progressive nausea and did have an episode of coffee-ground emesis at home. Chest x-ray shows no evidence of stent migration nor perforation. The patient was given a dose of antiemetic in the emergency room and notes that he is starting to feel improved today. The patient is followed for his esophageal cancer by Dr. Villatoro of [facility] in addition to a thoracic surgeon at [facility]. Based on a review his outpatient record it appears that the patient is no longer a surgical candidate due to suspected metastatic disease. Principal Diagnosis nausea, vomiting, and coffee-ground emesis 2nd to recent esophageal stent placement Discharge Exam Gen: NAD Skin: no pallor Neck: no JVD Heart: RRR, s1 s2, no murmur Lungs: CTA b/l Abd: soft, NT, ND, BS+ Ext: no edema, pulses 2+ b/l Discharge Data Allergies Allergy/AdvReac Type Severity Reaction Status Date / Time No Known Drug Allergies Allergy Verified 03/05/21 08:07 Consultations [facility] Hospital Course (1) Nausea & vomiting: Patient presented with nausea, vomiting, coffee-ground emesis, chest discomfort, and inability to tolerate PO intake following placement of esophageal stent on 03/04/21. All symptoms were likely due to esophageal irritation in the setting of his stent placement. Following admission he was given IV fluids, PPI, and clear liquid diet. He had no further coffee-ground emesis while hospitalized. Hemoglobin remained stable; hemoglobin range was 12.7 to 14.2. Symptoms improved in less than [address] Sukhi Melchor was consulted from [facility] who recommended the following - 1. full liquids diet for another 24 hours post-discharge then advance. 2. PPI once daily. 3. avoid aspirin and NSAIDs. 4. HOLD Eliquis on 03/06/21, then resume on 03/07/21. (2) Chest pain: Likely related to recent esophageal stent procedure. Pain resolved. No evidence that pain was due to a cardiac etiology. (3) Esophageal cancer: Diagnosed in the ; initially received DCF May to followed by [facility] October to February/2021. CT scan January/2021 showed progressive disease - he started [id number] on 03/01, disconnected from 5-FU pump on 03/03. Follows with Dr. Kenrick Villatoro, [facility] onc[facility]. (4) PAF (paroxysmal atrial fibrillation): Remained in [facility] during his brief stay. Eliquis on hold due to coffee-ground emesis experienced before this admission. Eliquis will be held for 24 hours post-discharge, then resumed if no additional episodes of coffee-ground emesis. (5) Neuropathy: Related to prior chemotherapy. (6) Diabetes mellitus, type 2: HbA1C 6.4% in December 2020. (7) History of DVT (deep vein thrombosis): Diagnosed July 2020, of [facility]. Previously on Eliquis - to be resumed the day after discharge. Total Time Total Time Spent Total Time Spent (In Minutes): 35 Discharge Plan Discharge Items Patient Disposition: Home - Self-Care Reason For Visit: NAUSEA/VOMITING, some with coffee-grounds Discharge Diagnosis: 1. chest discomfort, nausea, vomiting with coffee-ground material - due to esophageal stent placement on 03/04/21 2. mild drop in blood counts (hemoglobin) due to upper GI irritation/bleeding from the stent placement - resolved; hemoglobin level at discharge - 12.7 3. esophageal cancer Activity: As commented below Activity Comment: take it easy the next 2-3 days then gradually increase activities Non-emergency contact: Primary Care Provider and [employer] Technician Call non-emergency contact if: you have any medication questions, your symptoms worsen and your pain is not controlled Follow-up/Referrals: Remedios Miranda DO [Primary Care Provider] - Ilia Melchor DO [Physician] - (see Dr Melchor within 1-2 weeks ) Kenrick Villatoro MD [Surgeon] - (see Dr Villatoro as scheduled ) Diet: Full liquid Addtl Attending Provider Instructions: Mr Kaur, Jamir were admitted to the hospital after having had nausea, vomiting, chest discomfort, and some vomiting of black material/coffee-grounds. The latter is typically old blood. The bleeding was likely from esophageal irritation from the stent placement. Following admission your blood counts were monitored carefully and they stayed in the mid-12 range. With acid reducers, restricted diet, and time your chest symptoms improved. Dr Melchor saw you in consult and recommends the following - 1. full liquids diet for another 24 hours then advance. Please follow the 3- stage dietary advancement instructions you received after your stent placement on Sunday for additional information. 2. take pantoprazole acid business risk analyst once daily in the morning; prescription sent to your pharmacy for you. 3. avoid aspirin, ibuprofen, motrin, naprosyn, alleve, etc. Ok to take tylenol. 4. HOLD YOUR ELIQUIS TODAY. Ok to resume the eliquis tomorrow morning, 1. 5. no alcohol consumption. Follow-up - see separate section Return to [facility] if - * you experience recurrent chest pains * you have shortness of breath * you vomit bright red blood or have additional episodes of "coffee-ground" material in the vomit * you continue to see black, dark, tarry stools (ok to see this today/tomorrow, but it should be resolved by mid-week) * you have abdominal pains * any other concerns Continue to feel better! Dr Irving Pending Studies at Discharge: No Stand-Alone Forms: My [facility], Smoking Cessation Medications and DC Order Prescriptions: New pantoprazole 40 mg Tablet,Delayed Release (Dr/Ec) 40 mg PO QAM Qty: 30 RF: 2 Continued Eliquis 5 mg tablet 5 mg PO BID RF: 0 ondansetron HCl 8 mg tablet 8 mg PO DAILY RF: 0 prochlorperazine maleate 10 mg tablet 10 mg PO DAILY RF: 0 Folfox 400 mg IV Q14D RF: 0 No Action hydrocodone-acetaminophen 7.5-325 mg/15 mL solution 15 ml PO BID PRN (Reason: pain) Qty: 400 RF: 0 Discharge Orders: Discharge Order (Routine); Ordered 03/06/21 Ordered By: Yang Larsen/Other Patient Handouts: Full Liquid Diet Dc Admission Data Admit Date/Time: 03/05/21 08:21 Attending Provider: Yang Irving Admit Provider: Siuta,Yang R Primary Care Provider: Remedios Miranda Other Providers: Ilia Melchor Other Interventions: Discharge Summary Assessment (RN) Last Done: 03/06/21 14:18 Coding Level of Care Code 67307 OBS Care - Discharge Diagnoses Nausea & vomiting R11.2 Chest pain R07.9 Esophageal cancer C15.9 PAF (paroxysmal atrial fibrillation) I48.0 Neuropathy G62.9 Diabetes mellitus, type 2 E11.9 History of DVT (deep vein thrombosis) Z86.718
== END 2021-03-06 14:40 | disposition home or self-care (01) ==
LOC: 2W 05:07 → ED 05:07 → 2W 10:34
DX: Z68.31 Body mass index [BMI] 31.0-31.9, adult; Z92.21 Personal history of antineoplastic chemotherapy; E11.9 Type 2 diabetes mellitus without complications; G62.0 Drug-induced polyneuropathy; R07.9 Chest pain, unspecified; Z79.01 Long term (current) use of anticoagulants; Z20.822 Contact with and (suspected) exposure to COVID-19; Z79.899 Other long term (current) drug therapy; I48.0 Paroxysmal atrial fibrillation; E66.9 Obesity, unspecified; Z96.89 Presence of other specified functional implants; R11.2 Nausea with vomiting, unspecified; Z86.718 Personal history of other venous thrombosis and embolism; C15.5 Malignant neoplasm of lower third of esophagus

== ENCOUNTER 2021-10-13 10:19 | Inpatient (IN) ==
[2021-10-13] MEDS ORDERED: SODIUM CHLORIDE 0.9% 500 ML IV ONE ×2 (10:24→13:22)
[2021-10-13] MEDS ORDERED: diphenhydrAMINE 50 MG/ML VIAL IV STA (10:38)
[2021-10-13] MEDS ORDERED: FAMOTIDINE 20MG IV PUSH 20 MG/5 ML SYR IV STA (10:38)
[2021-10-13] MEDS ORDERED: METOCLOPRAMIDE HCL INJ 5 MG/ML 2 ML VIAL IV STA (10:39)
[2021-10-13] MEDS ORDERED: SODIUM CHLORIDE 0.9% 1000ML 1,000 ML IV ONE (10:40)
[2021-10-13] MEDS ORDERED: ACETAMINOPHEN 1,000 MG/100 ML VIAL IV STA (10:40)
--- NOTE | 2021-10-13 10:42 | Emergency Department Note ---
Impression & Plan Hypomagnesemia, Hypokalemia, Epigastric abdominal pain, Esophageal cancer, Metastatic disease ED Provider Note NAME: REANNA TRENT AGE: 61 SEX: M ARRIVES VIA: Walk-In INFORMANT: Patient ED PROVIDER(S): Bennie Haywood MD CHIEF COMPLAINT: Epigastric/chest pain. PLAN: Disposition: Admit MEDICAL DECISION MAKING: The patient is a pleasant 61-year-old gentleman with a past medical history of esophageal cancer status post radiation and chemotherapy in July, history of CAD with history of PCI who presents to the emergency department for evaluation of epigastric/chest pain that has worsened since Sunday with associated nausea and vomiting on Sunday and then again today. They report they contacted their providers and they were referred to the emergency department for evaluation. The patient is on Eliquis and reports he has been taking this. He denies any cough, congestion, fevers, chills, diarrhea. He reports that he was helping to lift something on Sunday when the flare of his pain occurred. He does have pain in this area often in the setting of his esophageal cancer as well as pain in his left shoulder but had worsened and worsened on Sunday. He reports worsening pain with movements but not necessarily with exertion. On arrival, the patient is uncomfortable no acute distress, afebrile stable vital signs. He has mild epigastric discomfort without discrete tenderness. He appears clinically dry. EKG without overt acute ischemia. Chest x-ray negative for acute cardiopulmonary process. CBC and platelets within normal limits. H/H 10/31.5 without recent values for comparison. Chemistry without metabolic acidosis. Potassium 3.3 and magnesium 1.2 with repletion initiated. LFTs are unremarkable. Troponin negative/undetectable. Lipase is not elevated. Covid-19 RNA, NAAT negative. CT of the chest and abdomen pelvis was performed and demonstrates the patient's known metastatic esophageal cancer with no evidence of bony metastases to the thoracic spine. I did review the findings with the patient and his at the bedside. Given the patient's symptomatic hypomagnesemia he is in agreement with plan for admission for further management. Case was discussed with Marlen Sanders [facility] PAC with Dr. Lawrence, [facility] hospitalist, who will evaluate the patient for admission. Triage Nursing notes reviewed and agree them. Prior medical records reviewed Vital Signs: reviewed and remarkable for no significant abnormalities Differential diagnosis: Appendicitis, testicular torsion, infections, diverticulitis, UTI, obstruction, mesenteric ischemia, aortic pathology, inflammatory bowel disease, renal colic, PUD, pancreatitis, biliary pathology, hernia, volvulus, constipation, as well as other pathologies. ER treatment provided: See below. Diagnostics interpreted by me: ECG: Normal sinus rhythm, 74 bpm, no ectopy, no overt ST elevation or depression, QTC 448, QRS 96. Cardiac Monitoring: An order for continuous cardiac monitoring was placed and demonstrated normal sinus rhythm, 74 bpm, no ectopy. Laboratory studies: See below Imaging studies: See below Consultation(s): Case was discussed with Marlen Sanders [facility] PAC with Dr. Lawrence, [facility] hospitalist, who will evaluate the patient for admission. HPI: The patient is a pleasant 61-year-old gentleman with a past medical history of esophageal cancer status post radiation and chemotherapy in July, history of CAD with history of PCI who presents to the emergency department for evaluation of epigastric/chest pain that has worsened since Sunday with as sociated nausea and vomiting on Sunday and then again today. They report they contacted their providers and they were referred to the emergency department for evaluation. The patient is on Eliquis and reports he has been taking this. He denies any cough, congestion, fevers, chills, diarrhea. He reports that he was helping to lift something on Sunday when the flare of his pain occurred. He odonnell s have pain in this area often in the setting of his esophageal cancer as well as pain in his left shoulder but had worsened and worsened on Sunday. He reports worsening pain with movements but not necessarily with exertion. ROS: See above HPI for pertinent positives & negatives. A total of 10 systems reviewed and were otherwise negative. VITALS:See Below PHYSICAL EXAMINATION: GENERAL: Awake, alert, chronically ill-appearing, in no distress HENT: Normocephalic, atraumatic. Oropharynx with dry mucous membranes and otherwise unremarkable. EYES: Normal conjunctiva. Sclera non-icteric. NECK: Supple. No nuchal rigidity. FROM. No JVD. RESPIRATORY: Clear to auscultation. CARDIAC: Regular rate, normal rhythm. Extremities warm and well perfused. Pulses equal. ABDOMEN: Soft, non-distended. Mild epigastric discomfort without discrete tenderness to palpation. No rebound or guarding. No masses. RECTAL: Deferred. MUSCULOSKELETAL: Chest examination reveals no tenderness. The back is symmetrical on inspection without obvious abnormality. There is no CVA tenderness to palpation. No joint edema. LOWER EXTREMITIES: Calves are equal size bilaterally and non-tender. No edema. No discoloration. NEURO: Normal sensorium. No sensory or motor deficits noted. SKIN: No rash or jaundice noted. Bennie Haywood MD Past Med/Surg History Medical History Esophageal bleeding Esophageal cancer (03/2020) GERD (gastroesophageal reflux disease) History of chemotherapy DCF 06/01-08/01 [facility] 10/31-03/02 Hx of benign neoplasm of colon LVH (left ventricular hypertrophy) Mitral regurgitation Obesity Pancytopenia due to antineoplastic chemotherapy Surgical History H/O thumb surgery Left History of bilateral cataract extraction History of colonoscopy History of endoscopy EUS 05/05/20 @ [facility] 05/09/2021 Dr. Ilia Melchor + stent placement History of esophagogastroduodenoscopy (EGD) 09/02/20 @ [facility] History of tooth extraction partial upper and lower History of vascular access device A port left side of chest S/P cataract surgery R/L Family History Mother Diabetes Father Asthma Other No family history of adverse response to anesthesia Denies family history of Ovarian cancer Prostate cancer Myocardial infarction Breast cancer Colorectal cancer Social History Smoking Status: Never smoker Second Hand Exposure: No; Hx Alcohol Use: No Hx Substance Use: No Preferred Language: Slovak Communication Ability: Effective Visual Impairment: No Limitations Hearing Ability: Normal Machine Tech Required: No Beliefs That Will Affect Care: None marital status: Current Living Situation: Spouse current occupational status: employed 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 [employer] How many Children do You have: 3 How many Children do You have Comment: daughters Tahmina and Jannet, employed @ [employer] Feels Safe at Home: Yes Childhood Exposure to Second-Hand Smoke: No caffeine: Yes (coffee 2-3 cups per am) during the past year weight has: increased > 10 lbs Dental Care, Regularly: Yes Physical Activity Frequency: Daily Seatbelt Use: always Sunscreen Use: No Assistive Devices: None Allergies Allergies Allergy/AdvReac Type Severity Reaction Status Date / Time No Known Drug Allergies Allergy Verified 10/13/21 11:09 Home Meds Home Medications Medication Instructions Recorded Confirmed ondansetron HCl 8 mg tablet 8 mg PO DAILY 03/05/21 10/13/21 oxaliplatin 200 mg/40 mL 400 mg IV Q14D #0 03/05/21 10/13/21 intravenous solution ferrous gluconate 225 mg (27 mg 225 mg PO DAILY 05/24/21 10/13/21 iron) tablet (Fergon) apixaban 2.5 mg tablet (Eliquis) 2.5 mg PO BID 07/21/21 10/13/21 morphine 15 mg tablet,extended 15 mg PO BID 10/13/21 10/13/21 release morphine concentrate 100 mg/5 mL 20 mg PO Q4H PRN 10/13/21 10/13/21 (20 mg/mL) oral solution Previous Rx's Medication Instructions Recorded pantoprazole 40 mg tablet,delayed 40 mg PO QAM #30 tab 03/06/21 release Results & Data (ED) Vital Signs Vital Signs - 24 hr 10/13/21 10:29 10/13/21 11:00 10/13/21 12:09 Temperature 36.4 C L Temperature Source Oral Pulse Rate 77 Pulse Rate [Right] 72 Pulse Rhythm Regular Pulse Strength Normal Respiratory Rate 18 20 Respiratory Effort / Characteristics Non-Labored Spontaneous Non-Labored Respiratory Depth Normal Normal Respiratory Pattern Regular Blood Pressure 104/79 Blood Pressure [Right Arm] 103/71 Blood Pressure Mean 87 Blood Pressure Mean [Right Arm] 81 Blood Pressure Position Sitting Pulse Oximetry 99 98 Oxygen Delivery Method Room Air Room Air Room Air Sepsis Recent Fever Within 48 Hours No Sepsis New/Unexplained Change in Mental Status No Sepsis Action Taken by Nursing No Action Required 10/13/21 13:12 10/13/21 13:30 Temperature Temperature Source Pulse Rate 65 Pulse Rate [Right] 66 Pulse Rhythm Pulse Strength Respiratory Rate 20 19 Respiratory Effort / Characteristics Non-Labored Respiratory Depth Normal Respiratory Pattern Blood Pressure 110/73 Blood Pressure [Right Arm] 93/69 L Blood Pressure Mean 85 Blood Pressure Mean [Right Arm] 77 Blood Pressure Position Pulse Oximetry 98 100 Oxygen Delivery Method Room Air Room Air Sepsis Recent Fever Within 48 Hours Sepsis New/Unexplained Change in Mental Status Sepsis Action Taken by Nursing Laboratory Data Attestation: I reviewed the patient's lab results. Result diagrams: 10/13/21 11:10 10/13/21 11:10 Lab Results 10/13/21 10/13/21 Range/Units 11:10 11:10 WBC 6.97 (4.8-10.8) K/uL RBC 4.14 L (4.7-6.1) M/uL Hgb 10.0 L (14.0-18.0) g/dL Hct 31.5 L (42-52) % MCV 76.1 L (80-100) fL MCH 24.2 L (25-34) pg MCHC 31.7 L (32-36) g/dL RDW Std Deviation 43.9 (36.4-46.3) fL RDW Coeff of Jarvis 15.6 H (11.5-14.5) % Plt Count 330 (130-400) K/uL MPV 10.0 (7.4-10.4) fL Immature Gran % (Auto) 0.4 % Neut % (Auto) 72.7 % Lymph % (Auto) 8.3 % [place] % (Auto) 18.2 % Eos % (Auto) 0.3 % Baso % (Auto) 0.1 % Neut # (Auto) 5.06 (1.4-6.5) K/uL Lymph # (Auto) 0.58 L (1.2-3.4) K/uL [place] # (Auto) 1.27 H (0.11-0.59) K/uL Eos # (Auto) 0.02 (0-0.5) K/uL Baso # (Auto) 0.01 (0-0.2) K/uL Immature Gran # (Auto) 0.03 H (0.00-0.02) K/uL Sodium 131 L (136-145) mmol/L Potassium 3.3 L (3.5-5.1) mmol/L Chloride 97 L (98-107) mmol/L Carbon Dioxide 26 (21-32) mmol/L Anion Gap 8 (3-11) BUN 6 (6-23) mg/dl Creatinine 0.54 L (0.6-1.4) mg/dl Est Cr Clr Drug Dosing 150.2 ml/min Est GFR ( Amer) 132.3 ml/min Est GFR (Non-Af Amer) 114.1 ml/min BUN/Creatinine Ratio 11.1 (10-20) Glucose 145 H (70-99(Fasting)) mg/dl Calcium 8.6 (8.5-10.1) mg/dl Phosphorus 3.2 (2.5-4.9) mg/dl Magnesium 1.2 L (1.7-2.4) mg/dl Total Bilirubin 0.9 (0.2-1.0) mg/dl AST 26 (13-39) U/L ALT 15 (7-52) U/L Alkaline Phosphatase 84 (34-104) U/L Troponin I < 0.03 (0-0.04) ng/ml Total Protein 5.7 L (6.0-8.3) gm/dl Albumin 2.7 L (3.4-5.0) gm/dl Globulin 3.0 (2.5-4.0) gm/dl Albumin/Globulin Ratio 0.9 (0.9-2) Lipase 4 L (11-82) U/L Administered Medications Acetaminophen (Acetaminophen 325 Mg Tab) 650 mg PO Q4H PRN PRN Reason: Pain or Fever Stop: 11/12/21 16:54 Last Admin: 10/13/21 20:22 Dose: 650 mg Documented by: [id number] Discontinued Medications Diphenhydramine HCl (Diphenhydramine 50 Mg/Ml Vial) 25 mg IV NOW STA Stop: 10/13/21 10:39 Last Admin: 10/13/21 11:26 Dose: 25 mg Documented by: [id number] Sodium Chloride (Nss) 500 mls @ 999 mls/hr IV .Q31M ONE Stop: 10/13/21 10:54 Last Infusion: 10/13/21 11:49 Dose: 0 mls/hr Documented by: [id number] Admin: 10/13/21 11:18 Dose: 999 mls/hr Documented by: [id number] Famotidine (Pepcid 20mg Iv Push) 20 mg in 5 mls @ 2.5 mls/min IV NOW STA Stop: 10/13/21 10:39 Last Admin: 10/13/21 11:27 Dose: 2.5 mls/min Documented by: [id number] Acetaminophen (Ofirmev) 1,000 mg in 100 mls @ 400 mls/hr IV NOW STA Stop: 10/13/21 10:54 Last Infusion: 10/13/21 13:05 Dose: 0 mls/hr Documented by: [id number] Admin: 10/13/21 11:44 Dose: 400 mls/hr Documented by: [id number] Sodium Chloride (Nss 1000ml) 1,000 mls @ 999 mls/hr IV .Q1H1M ONE Stop: 10/13/21 11:40 Last Infusion: 10/13/21 13:20 Dose: 0 mls/hr Documented by: [id number] Admin: 10/13/21 11:43 Dose: 999 mls/hr Documented by: [id number] Magnesium Sulfate/Dextrose (Magnesium Sulfate / D5w) 1 gm in 100 mls @ 100 mls/hr IV Q1H MARIA Stop: 10/13/21 14:23 Last Infusion: 10/13/21 15:50 Dose: 0 mls/hr Documented by: [id number] Admin: 10/13/21 14:07 Dose: 100 mls/hr Documented by: [id number] Infusion: 10/13/21 14:07 Dose: 100 mls/hr Documented by: [id number] Admin: 10/13/21 13:11 Dose: 100 mls/hr Documented by: [id number] Sodium Chloride (Nss) 500 mls @ 999 mls/hr IV .Q31M ONE Stop: 10/13/21 13:52 Last Infusion: 10/13/21 14:57 Dose: 0 mls/hr Documented by: [id number] Admin: 10/13/21 14:06 Dose: 999 mls/hr Documented by: [id number] Magnesium Sulfate/Dextrose (Magnesium Sulfate / D5w) 1 gm in 100 mls @ 50 mls/hr IV Q2H MARIA Stop: 10/13/21 18:43 Last Admin: 10/13/21 17:57 Dose: 50 mls/hr Documented by: [id number] Infusion: 10/13/21 16:41 Dose: 0 mls/hr Documented by: [id number] Admin: 10/13/21 15:00 Dose: 50 mls/hr Documented by: [id number] Ioversol (Optiray 320 100ml) 94 ml IV ONCE ONE Stop: 10/13/21 11:57 Last Admin: 10/13/21 11:56 Dose: 94 ml Documented by: [id number] Metoclopramide HCl (Metoclopramide Hcl Inj 5 Mg/Ml 2 Ml Vial) 5 mg IV NOW STA Stop: 10/13/21 10:40 Last Admin: 10/13/21 11:21 Dose: 5 mg Documented by: [id number] Potassium Chloride (Potassium Chloride Crtab 20 Meq Tabcr) 20 meq PO NOW STA Stop: 10/13/21 13:51 Last Admin: 10/13/21 14:05 Dose: 20 meq Documented by: [id number] Imaging Data Radiologist's Impression: Chest X-Ray 10/13/21 10:24 XR chest 1V portable HISTORY: Atypical Chest Pain COMPARISON: Chest 03/05/2021. FINDINGS: A left subclavian Port-A-Cath terminates at the SVC. No pneumothorax or no pleural effusion is. Low lung volumes. The cardiac silhouette remains mildly enlarged. No new focal lung consolidations to suggest pneumonia. No evidence for pulmonary edema. Esophageal stent appears in good position. IMPRESSION: No acute process. ACT 112: Negative or not required by law. Electronically signed by: Luis Hough M.D. 10/13/2021 11:06 AM Abdomen/Pelvis CT 10/13/21 10:40 CT OF THE ABDOMEN AND PELVIS WITH CONTRAST CLINICAL HISTORY: Abdominal pain, nausea and vomiting. Esophageal cancer. COMPARISON STUDY: PET/CT September 26, 2021. CT of the abdomen and pelvis February 04, 2021. TECHNIQUE: Following IV administration of 94 mL of Optiray, axial images of the abdomen and pelvis were obtained from the lung bases to the proximal femurs. Images were reviewed in the axial, sagittal, and coronal planes. IV contrast was administered without complication. Automated exposure control was utilized for the study. A dose lowering technique was utilized adhering to the principles of ALARA. FINDINGS: Please note that the chest CT will be reported separately. An esophageal stent is unchanged in position since PET/CT of September 26, 2021. W all thickening of the mid to distal esophagus is unchanged. Adjacent mediastinal infiltration is better depicted on the chest CT. Please see that report for further description. No pneumatosis, free air or portal venous gas is present. There are no hepatic lesions. Spleen, adrenal glands, kidneys and pancreas are normal. No hydronephrosis. No biliary or pancreatic ductal dilatation. Calcified gallstone within the gallbladder is present. There is no evidence for acute cholecystitis. Several mildly enlarged upper abdominal lymph nodes are unchanged since PET/CT of September 26, 2021. The largest is a 1.5 cm partially necrotic periceliac noted. There is an additional 1.1 cm left para-aortic lymph node. Smaller retroperitoneal lymph nodes are unchanged. No new sites of adenopathy within the abdomen or pelvis are present. No evidence for a bowel obstruction. Appendix is normal. IMPRESSION: 1. No acute process within the abdomen or pelvis. 2. No change in pathologic upper abdominal lymphadenopathy since PET/CT of September 26, 2021. 3. No change in position of the esophageal stent. Persistent mid to distal esophageal wall thickening with adjacent infiltration/soft tissue. Findings are better depicted on the chest CT which will be reported separately. ACT 112: Negative or not required by law. Electronically signed by: Madan Cordova M.D. 10/13/2021 12:[address] 10/13/21 10:[address] WITH CONTRAST CT DOSE: 594.57 mGy.cm HISTORY: abd/chest pain, nausea, vomiting, esophageal ca TECHNIQUE: Multiaxial CT images of the chest were performed following the intravenous administration of contrast. A dose lowering technique was utilized adhering to the principles of ALARA. COMPARISON: Chest CT 05/06/2021. FINDINGS: The thyroid gland enhances normally. A left supra clavicular lymph node has significantly decreased in size. This currently measures 16 x 9 mm, previously measuring 28 x 20 mm. No mediastinal or hilar lymphadenopathy. Normal caliber thoracic aorta with no evidence for dissection. The heart remains mildly enlarged. Trace right pleural effusion. No pericardial effusion. Please refer the same day abdomen and pelvis CT for further evaluation of the abdominal structures. There are 2 esophageal stents within the mid to distal esophagus. These appear to be in good position. Circumferential thickening of the esophageal wall within the mid to distal esophagus. This includes the wall just proximal to the stent with associated paraesophageal stranding/soft tissue. There is been interval development of small focal erosions within the anterior T 5 and T6 measuring up to 5 mm. There is also mild paravertebral soft tissue at this location which appears to be a direct extension from the thickened midesophagus just proximal to the stent. Therefore, this is highly suspicious for adjacent tumor invasion with focal destructive change at the anterior T5 and T6 vertebral bodies. Focal infection consistent with osteomyelitis could also have a similar appearance. However, the disc space appears preserved at this time. No pneumothorax. The central airways are patent. Stable subcentimeter nodules within the lungs which are likely benign. No new pulmonary nodules identified. No focal lung consolidations identified. IMPRESSION: 1. There are 2 esophageal stents within the mid to distal esophagus which appear in good position. 2. Circumferential thickening of the esophageal wall within the mid to distal esophagus which includes the wall proximal to the esophageal stent where there is associated paraesophageal and paravertebral stranding/soft tissue. There has been interval development of small focal erosions within the anterior T5 and T6 vertebral bodies measuring up to 5 mm. Therefore, this is highly suspicious for tumor invasion from the adjacent mid esophagus with focal destructive change at the anterior T5 and T6 vertebral bodies. Focal infection consistent with osteo myelitis could also have a similar appearance. 3. Trace right pleural effusion. 4. Decrease in size in the left supraclavicular lymph node. 5. Please refer to the same day abdomen and pelvis CT for further evaluation of the abdominal structures. ACT 112: Negative or not required by law. Electronically signed by: Luis Hough M.D. 10/13/2021 1:01 PM Discharge Plan Visit Data Chief Complaint: Chest Pain Stated Complaint: CHEST PAIN,HAS TWO STENTS,REF BY DOC ED Provider: Bennie Haywood Discharge Problem: Hypomagnesemia, Hypokalemia, Epigastric abdominal pain, Esophageal cancer, Metastatic disease Patient Disposition: Admitted As Inpatient Discharge Instructions Interventions: ED Discharge Assessment Last Done: 10/13/21 16:39 Discharge Problem: Esophageal cancer Qualifiers: Malignant neoplasm of esophagus location: unspecified location Qualified Code(s): C15.9 - Malignant neoplasm of esophagus, unspecified Metastatic disease Qualifiers: Area of secondary neoplastic involvement: unspecified site Qualified Code(s): C79.9 - Secondary malignant neoplasm of unspecified site
--- NOTE | 2021-10-13 11:07 | XRay Report ---
XR chest 1V portable HISTORY: Atypical Chest Pain COMPARISON: Chest 03/05/2021. FINDINGS: A left subclavian Port-A-Cath terminates at the SVC. No pneumothorax or no pleural effusion is. Low lung volumes. The cardiac silhouette remains mildly enlarged. No new focal lung consolidatio ns to suggest pneumonia. No evidence for pulmonary edema. Esophageal stent appears in good position. IMPRESSION: No acute process. ACT 112: Negative or not required by law. Electronically signed by: Luis Hough M.D. 10/13/2021 11:06 AM
[2021-10-13 11:14] LABS: Basophils # (auto) 0.01 K/uL (0-0.2); Basophils % (auto) 0.1 %; Eosinophils # (auto) 0.02 K/uL (0-0.5); Eosinophils % (auto) 0.3 %; Hematocrit (blood only) 31.5 % (42-52); Immature Granulocytes # (auto) 0.03 K/uL (0.00-0.02); Immature Granulocytes % (auto) 0.4 %; Lymphocytes # (auto) 0.58 K/uL (1.2-3.4); Lymphocytes % (auto) 8.3 %; Mean Corpuscular Hemoglobin 24.2 pg (25-34); Mean Corpuscular Hgb Conc 31.7 g/dL (32-36); Mean Corpuscular Volume 76.1 fL (80-100); Monocytes # (auto) 1.27 K/uL (0.11-0.59); Monocytes % (auto) 18.2 %; Neutrophils # (auto) 5.06 K/uL (1.4-6.5); Neutrophils % (auto) 72.7 %; Platelet Count 330 K/uL (130-400); RDW Coefficient of Variation 15.6 % (11.5-14.5); RDW Standard Deviation 43.9 fL (36.4-46.3); Red Blood Count 4.14 M/uL (4.7-6.1); White Blood Count 6.97 K/uL (4.8-10.8)
[2021-10-13 11:35] LABS: Alanine Aminotransferase 15 U/L (7-52); Albumin Globulin Ratio 0.9 (0.9-2); Albumin Level 2.7 gm/dl (3.4-5.0); Alkaline Phosphatase 84 U/L (34-104); Anion Gap 8 (3-11); Aspartate Aminotransferase 26 U/L (13-39); BUN Creatinine Ratio 11.1 (10-20); Bilirubin,Total 0.9 mg/dl (0.2-1.0); Blood Urea Nitrogen 6 mg/dl (6-23); Calcium 8.6 mg/dl (8.5-10.1); Carbon Dioxide 26 mmol/L (21-32); Chloride 97 mmol/L (98-107); Creatinine Clr Calc Pharmacy 150.2 ml/min; Est GFR (African American) 132.3 ml/min; Est GFR (Non-African American) 114.1 ml/min; Glucose 145 mg/dl (70-99(Fasting)); Lipase 4 U/L (11-82); Magnesium 1.2 mg/dl (1.7-2.4); Phosphorus 3.2 mg/dl (2.5-4.9); Potassium 3.3 mmol/L (3.5-5.1); Sodium 131 mmol/L (136-145); Total Protein 5.7 gm/dl (6.0-8.3)
[2021-10-13 11:37] LABS: Troponin I < 0.03 ng/ml (0-0.04)
[2021-10-13] MEDS ORDERED: OPTIRAY 320 100ml IV ONE (11:56)
--- NOTE | 2021-10-13 12:40 | CT Scan Report ---
CT OF THE ABDOMEN AND PELVIS WITH CONTRAST CLINICAL HISTORY: Abdominal pain, nausea and vomiting. Esophageal cancer. COMPARISON STUDY: PET/CT September 26, 2021. CT of the abdomen and pelvis February 04, 2021. TECHNIQUE: Following IV administration of 94 mL of Optiray, axial images of the abdomen and pelvis we re obtained from the lung bases to the proximal femurs. Images were reviewed in the axial, sagittal, and coronal planes. IV contrast was administered without complication. Automated exposure control wa s utilized for the study. A dose lowering technique was utilized adhering to the principles of ALARA . FINDINGS: Please note that the chest CT will be reported separately. An esophageal stent is unchanged in position since PET/CT of September 26, 2021. Wall thickening of the mid to distal esophagus is unc hanged. Adjacent mediastinal infiltration is better depicted on the chest CT. Please see that report for further description. No pneumatosis, free air or portal venous gas is present. There are no hepat ic lesions. Spleen, adrenal glands, kidneys and pancreas are normal. No hydronephrosis. No biliary or pancreatic ductal dilatation. Calcified gallstone within the gallbladder is present. There is no bart dence for acute cholecystitis. Several mildly enlarged upper abdominal lymph nodes are unchanged sinc e PET/CT of September 26, 2021. The largest is a 1.5 cm partially necrotic periceliac noted. There is an additional 1.1 cm left para-aortic lymph node. Smaller retroperitoneal lymph nodes are unchanged. No new sites of adenopathy within the abdomen or pelvis are present. No evidence for a bowel obstruct ion. Appendix is normal. IMPRESSION: 1. No acute process within the abdomen or pelvis. 2. No change in pathologic upper abdominal lymphadenopathy since PET/CT of September 26, 2021. 3. No change in position of the esophageal stent. Persistent mid to distal esophageal wall thickening with adjacent infiltration/soft tissue. Findings are better depicted on the chest CT which will be r eported separately. ACT 112: Negative or not required by law. Electronically signed by: Madan Cordova M.D. 10/13/2021 12:38 PM
--- NOTE | 2021-10-13 13:02 | CT Scan Report ---
CHEST CT WITH CONTRAST CT DOSE: 594.57 mGy.cm HISTORY: abd/chest pain, nausea, vomiting, esophageal ca TECHNIQUE: Multiaxial CT images of the chest were performed following the intravenous administration of contrast. A dose lowering technique was utilized adhering to the principles of ALARA. COMPARISON: Chest CT 05/06/2021. FINDINGS: The thyroid gland enhances normally. A left supra clavicular lymph node has significantly d ecreased in size. This currently measures 16 x 9 mm, previously measuring 28 x 20 mm. No mediastinal or hilar lymphadenopathy. Normal caliber thoracic aorta with no evidence for dissection. The heart re nimisha mildly enlarged. Trace right pleural effusion. No pericardial effusion. Please refer the same d ay abdomen and pelvis CT for further evaluation of the abdominal structures. There are 2 esophageal s tents within the mid to distal esophagus. These appear to be in good position. Circumferential thicke ricardo of the esophageal wall within the mid to distal esophagus. This includes the wall just proximal to the stent with associated paraesophageal stranding/soft tissue. There is been interval development of small focal erosions within the anterior T5 and T6 measuring up to 5 mm. There is also mild parav ertebral soft tissue at this location which appears to be a direct extension from the thickened mides ophagus just proximal to the stent. Therefore, this is highly suspicious for adjacent tumor invasion with focal destructive change at the anterior T5 and T6 vertebral bodies. Focal infection consistent with osteomyelitis could also have a similar appearance. However, the disc space appears preserved at this time. No pneumothorax. The central airways are patent. Stable subcentimeter nodules within the lungs which are likely benign. No new pulmonary nodules identified. No focal lung consolidations iden tified. IMPRESSION: 1. There are 2 esophageal stents within the mid to distal esophagus which appear in good position. 2. Circumferential thickening of the esophageal wall within the mid to distal esophagus which include s the wall proximal to the esophageal stent where there is associated paraesophageal and paravertebra l stranding/soft tissue. There has been interval development of small focal erosions within the anter ior T5 and T6 vertebral bodies measuring up to 5 mm. Therefore, this is highly suspicious for tumor i nvasion from the adjacent mid esophagus with focal destructive change at the anterior T5 and T6 verte bral bodies. Focal infection consistent with osteomyelitis could also have a similar appearance. 3. Trace right pleural effusion. 4. Decrease in size in the left supraclavicular lymph node. 5. Please refer to the same day abdomen and pelvis CT for further evaluation of the abdominal structu res. ACT 112: Negative or not required by law. Electronically signed by: Luis Hough M.D. 10/13/2021 1:01 PM
[2021-10-13] MEDS: MAGNESIUM SULFATE / D5W 1 GM/100 ML BAG IV SCH ×4 (13:11→17:57)
[2021-10-13] MEDS ORDERED: POTASSIUM CHLORIDE CRTAB 20 MEQ TABCR PO STA (13:50)
--- NOTE | 2021-10-13 14:18 | History & Physical Report ---
Date of Service October 13, 2021 Assessment & Plan (1) Epigastric abdominal pain: Plan: -In the setting of esophageal CA with local metastatic disease, brought on by heavy lifting on Sunday, with nausea and vomiting without hematemesis, and ? thoracic mets seen on chest CT. This pain unlikely to be cardiac in nature as it has persisted since Sunday, trop negative and EKG without any evidence of cardiac dz. Suspect pt may have fracture back Sunday when lifting, which is causing the pain felt in the chest. A PET scan on 09/26 did not show evidence of met dz to spine. CTAP did not otherwise show any acute process to cause abdominal pain. -Nausea and vomiting has resolved after receiving Pepcid, Benadryl, and Reglan in ED. Has also received IVF, initially borderline hypotensive with SBP in 90s, responding to fluids. -We will continue anti emetic medications as well as pain medications as needed. -Continue PPI, can add on Pepcid for additional relief. -Currently tolerating regular diet at home, d/t nausea and vomitng, will start on liquids/soft food diet and can change in the future if patient tolerates this well. -[facility] consulted regarding chest/epigastric pain with swallowing and history of esophageal stents placed by their group. They recommend NPO now due to fluid in esophagus noted on CT which raises concern for aspiration risk. Also recommending PPI IV BID, plan for endoscopy tomorrow. Will hold Eliquis for procedure. Appreciate their recommendations. (2) Hypomagnesemia: Plan: -EKG showed NSR. Mg 1.2 in ED, 4g ordered. -Repeat BMP and Mg in AM. (3) Hypokalemia: Plan: -K+ 3.3 in ED with hypomagnesemia. -20 KCl given, Mg repleted as above. -Repeat BMP and Mg in AM. 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 Kenrick Villatoro with [facility] On[facility] and Dr. Dominique Villatoro with [facility]. -S/p esophageal stents, last chemo and radiation tx July 2021. -Dr. Fox has been consulted regarding findings on CT concerning for met dz to spine. (5) Atrial fibrillation: Plan: -Diagnosed during admission on in August 2020, was started on Eliquis and amio darone; amiodarone has since been d/c'd. -Currently on Eliquis d/t PMH of LUE DVT (port on left side), will hold this for endoscopy tomorrow. Patient without hematemesis. Plan: -Admit to med/surg w/ tele. -SCDs, Eliquis for dvt ppx. -DNR/DNI. History of Present Illness Chief Complaint: nausea, vomiting Primary Care Provider: Remedios Miranda DO Patient is a 61 /yo M with PMH esophageal CA and afibb who presents today with complaints of nausea and vomiting. Patient was lifting something Sunday when he experienced epigastric pain without radiation. The pain was moderate and steady, has been present since then without worsening. He has been feeling nauseous since the pain began and yesterday began vomiting, reports 1-2 episodes today and yesterday without blood seen. Due to this, patient has been struggling to keep up with po intake, otherwise denies fever/chills, fatigue, chest pain, back pain, palpitations, SOB, cough, hematemesis, melena, hematochezia, change to bowel movements. In ED, pt was mildly hypotensive with SBP mid 90s, otherwise VS stable and within normal limits. Labs remarkable for Hgb 10.0 (12.7 in February), Na 131, Mg 1.2 and K 3.3, otherwise labs unremarkable. CT of chest showed interval development of small focal erosions within the anterior T5 and T6 vertebral bodies measuring up to 5 mm, highly suspicious for tumor invasion from the adjacent mid esophagus with focal destructive change at the anterior T5 and T6 vertebral bodies. Also noted circumferential thickening of the esophageal wall within the mid to distal esophagus which includes the wall proximal to the esophageal stent where there is associated paraesophageal and paravertebral stranding/soft tissue. 2 esophageal stents within mid-distal esophagus in good position. CTAP without acute findings, no changes from PET/CT on 09/26. Patient received 1.5 L NS, Reglan, Benadryl, and Pepcid in ED, and 2 g of IV Mg was ordered. Hospitalist service was called for further evaluation and admission. During my encounter w/ patient, a discussion about code status occurred with patient and who was at the bedside. Patient stated he wishes to be DNR/DNI. Allergies Allergy/AdvReac Type Severity Reaction Status Date / Time No Known Drug Allergies Allergy Verified 10/13/21 11:09 Home Medications Medication Instructions Recorded Confirmed Type ondansetron HCl 8 mg tablet 8 mg PO DAILY 03/05/21 10/13/21 History oxaliplatin 200 mg/40 mL 400 mg IV Q14D #0 03/05/21 10/13/21 History intravenous solution pantoprazole 40 mg tablet,delayed 40 mg PO QAM #30 tab 03/06/21 10/13/21 Rx release ferrous gluconate 225 mg (27 mg 225 mg PO DAILY 05/24/21 10/13/21 History iron) tablet (Fergon) apixaban 2.5 mg tablet (Eliquis) 2.5 mg PO BID 07/21/21 10/13/21 History morphine 15 mg tablet,extended 15 mg PO BID 10/13/21 10/13/21 History release morphine concentrate 100 mg/5 mL 20 mg PO Q4H PRN 10/13/21 10/13/21 History (20 mg/mL) oral solution Past Med/Surg History Medical History (Updated 10/14/21 @ 08:46 by Rayo Pisano MD) Atrial fibrillation Esophageal bleeding Esophageal cancer (03/2020) esophageal stent GERD (gastroesophageal reflux disease) History of chemotherapy DCF 06/01-08/01 Xeloda 10/31-03/02 Hx of benign neoplasm of colon LVH (left ventricular hypertrophy) Mitral regurgitation Obesity Pancytopenia due to antineoplastic chemotherapy Surgical History H/O thumb surgery Left History of bilateral cataract extraction History of colonoscopy History of endoscopy EUS 05/05/20 @ [facility] 05/09/2021 Dr. Ilia Melchor + stent placement History of esophagogastroduodenoscopy (EGD) 09/02/20 @ [facility] History of tooth extraction partial upper and lower History of vascular access device A port left side of chest S/P cataract surgery R/L Family History Mother Diabetes Father Asthma Other No family history of adverse response to anesthesia Denies family history of Ovarian cancer Prostate cancer Myocardial infarction Breast cancer Colorectal cancer Social History (Reviewed 10/13/21 @ 17:43 by KYLE Saldivar Smoking Status: Never smoker Second Hand Exposure: No; Hx Alcohol Use: No Hx Substance Use: No Preferred Language: Cypriot Communication Ability: Effective Visual Impairment: No Limitations Hearing Ability: Normal Manager Data Required: No Beliefs That Will Affect Care: None marital status: Current Living Situation: Spouse current occupational status: employed 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 [employer] How many Children do You have: 3 How many Children do You have Comment: daughters 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, 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[employer] 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 Safe at Home: Yes Childhood Exposure to Second-Hand Smoke: No caffeine: Yes (coffee 2-3 cups per am) during the past year weight has: increased > 10 lbs Dental Care, Regularly: Yes Physical Activity Frequency: Daily Seatbelt Use: always Sunscreen Use: No Assistive Devices: None Review of Systems Review of Systems: Review of systems: Constitutional: No fever, sweats or chills Eyes: No diplopia, no worsening or blurred vision ENT: normal hearing, no trouble swallowing Respiratory: No cough, sputum, dyspnea at rest or on exertion Cardiovascular: No chest pain, tightness or palpitations Abdomen: epigastric pain with nausea and 3-4 episodes of vomiting over the past 2 day; no hematemesis, diarrhea, or constipation Musculoskeletal: No joint pain, calf pain, swelling Neurologic: No weakness, numbness/tingling, or balance problems Psychiatric: No anxiety or depression Skin: No rash or itch Physical Exam Physical Exam: Physical exam: General: awake, alert, no apparent distress, pt appears mildly dehydrated Head: Normocephalic, atraumatic ENT: PERRL, EOMI, no pharyngeal exudate, mucous membranes moist Chest: Clear to auscultation, on room air, no adventitious breath sounds Cardiac: Regular rate and rhythm, no murmur, no JVD, normal peripheral pulses, good capillary refill Abdominal: NABS x 4 quadrants, soft, nontender to palpation, no rebound, guarding or tenderness Extremities: Normal inspection, no peripheral edema or erythema, calfs nontender to palpation Psych: Normal mood and affect Neuro: AAO x 3, strength intact bilaterally and rated 5/5, no motor deficits, speech is clear, no peripheral sensory deficits Skin: no rash or erythema Results & Data Results & Data ([facility]) Vital Signs (Past 12 Hours) Vital Signs Temp Pulse Pulse Resp BP BP Pulse Ox 10/13/21 13:12 66 20 93/69 L 98 10/13/21 12:09 72 20 103/71 98 10/13/21 10:29 36.4 C L 77 18 104/79 99 Laboratory Results Abnormal lab results 10/13/21 10/13/21 Range/Units 11:10 11:10 RBC 4.14 L (4.7-6.1) M/uL Hgb 10.0 L (14.0-18.0) g/dL Hct 31.5 L (42-52) % MCV 76.1 L (80-100) fL MCH 24.2 L (25-34) pg MCHC 31.7 L (32-36) g/dL RDW Coeff of Jarvis 15.6 H (11.5-14.5) % Lymph # (Auto) 0.58 L (1.2-3.4) K/uL [place] # (Auto) 1.27 H (0.11-0.59) K/uL Immature Gran # (Auto) 0.03 H (0.00-0.02) K/uL Sodium 131 L (136-145) mmol/L Potassium 3.3 L (3.5-5.1) mmol/L Chloride 97 L (98-107) mmol/L Creatinine 0.54 L (0.6-1.4) mg/dl Glucose 145 H (70-99(Fasting)) mg/dl Magnesium 1.2 L (1.7-2.4) mg/dl Total Protein 5.7 L (6.0-8.3) gm/dl Albumin 2.7 L (3.4-5.0) gm/dl Lipase 4 L (11-82) U/L Diagnostic Findings Chest X-Ray 10/13/21 10:24 XR chest 1V portable HISTORY: Atypical Chest Pain COMPARISON: Chest 03/05/2021. FINDINGS: A left subclavian Port-A-Cath terminates at the SVC. No pneumothorax or no pleural effusion is. Low lung volumes. The cardiac silhouette remains mildly enlarged. No new focal lung consolidations to suggest pneumonia. No evidence for pulmonary edema. Esophageal stent appears in good position. IMPRESSION: No acute process. ACT 112: Negative or not required by law. Electronically signed by: Luis Hough M.D. 10/13/2021 11:06 AM Abdomen/Pelvis CT 10/13/21 10:40 CT OF THE ABDOMEN AND PELVIS WITH CONTRAST CLINICAL HISTORY: Abdominal pain, nausea and vomiting. Esophageal cancer. COMPARISON STUDY: PET/CT September 26, 2021. CT of the abdomen and pelvis February 04, 2021. TECHNIQUE: Following IV administration of 94 mL of Optiray, axial images of the abdomen and pelvis were obtained from the lung bases to the proximal femurs. Images were reviewed in the axial, sagittal, and coronal planes. IV contrast was administered without complication. Automated exposure control was utilized for the study. A dose lowering technique was utilized adhering to the principles of ALARA. FINDINGS: Please note that the chest CT will be reported separately. An esoph ageal stent is unchanged in position since PET/CT of September 26, 2021. Wall thickening of the mid to distal esophagus is unchanged. Adjacent mediastinal infiltration is better depicted on the chest CT. Please see that report for further description. No pneumatosis, free air or portal venous gas is present. There are no hepatic lesions. Spleen, adrenal glands, kidneys and pancreas are normal. No hydronephrosis. No biliary or pancreatic ductal dilatation. Calcified gallstone within the gallbladder is present. There is no evidence for acute cholecystitis. Several mildly enlarged upper abdominal lymph nodes are unchanged since PET/CT of September 26, 2021. The largest is a 1.5 cm partially necrotic periceliac noted. There is an additional 1.1 cm left para-aortic lymph node. Smaller retroperitoneal lymph nodes are unchanged. No new sites of adenopathy within the abdomen or pelvis are present. No evidence for a bowel obstruction. Appendix is normal. IMPRESSION: 1. No acute process within the abdomen or pelvis. 2. No change in pathologic upper abdominal lymphadenopathy since PET/CT of September 26, 2021. 3. No change in position of the esophageal stent. Persistent mid to distal esophageal wall thickening with adjacent infiltration/soft tissue. Findings are better depicted on the chest CT which will be reported separately. Chest CT 10/13/21 10:[address] WITH CONTRAST CT DOSE: 594.57 mGy.cm HISTORY: abd/chest pain, nausea, vomiting, esophageal ca TECHNIQUE: Multiaxial CT images of the chest were performed following the intravenous administration of contrast. A dose lowering technique was utilized adhering to the principles of ALARA. COMPARISON: Chest CT 05/06/2021. FINDINGS: The thyroid gland enhances normally. A left supra clavicular lymph node has significantly decreased in size. This currently measures 16 x 9 mm, previously measuring 28 x 20 mm. No mediastinal or hilar lymphadenopathy. Normal caliber thoracic aorta with no evidence for dissection. The heart remains mildly enlarged. Trace right pleural effusion. No pericardial effusion. Please refer the same day abdomen and pelvis CT for further evaluation of the abdominal structures. There are 2 esophageal stents within the mid to distal esophagus. These appear to be in good position. Circumferential thickening of the esophageal wall within the mid to distal esophagus. This includes the wall just proximal to the stent with associated paraesophageal stranding/soft tissue. There is been interval development of small focal erosions within the anterior T5 and T6 measuring up to 5 mm. There is also mild paravertebral soft tissue at this location which appears to be a direct extension from the thickened midesophagus just proximal to the stent. Therefore, this is highly suspicious for adjacent tumor invasion with focal destructive change at the anterior T5 and T6 vertebral bodies. Focal infection consistent with osteomyelitis could also have a similar appearance. However, the disc space appears preserved at this time. No pneumothorax. The central airways are patent. Stable subcentimeter nodules within the lungs which are likely benign. No new pulmonary nodules identified. No focal lung consolidations identified. IMPRESSION: 1. There are 2 esophageal stents within the mid to distal esophagus which appear in good position. 2. Circumferential thickening of the esophageal wall within the mid to distal esophagus which includes the wall proximal to the esophageal stent where there is associated paraesophageal and paravertebral stranding/soft tissue. There has been interval development of small focal erosions within the anterior T5 and T6 vertebral bodies measuring up to 5 mm. Therefore, this is highly suspicious for tumor invasion from the adjacent mid esophagus with focal destructive change at the anterior T5 and T6 vertebral bodies. Focal infection consistent with osteomyelitis could also have a similar appearance. 3. Trace right pleural effusion. 4. Decrease in size in the left supraclavicular lymph node. 5. Please refer to the same day abdomen and pelvis CT for further evaluation of the abdominal structures. ECG Additional Comments: Normal sinus rhythm Normal ECG When compared with ECG of 20-AUG-2020 06:46, Sinus rhythm has replaced Atrial fibrillation Vent. rate has decreased BY 41 BPM Code Status & VTE Plan Code Status DNR/DNI. VTE Prophylaxis Plan VTE Prophylaxis will be ordered: Yes Supervising Physician Co-Signing Physician Notes I personally saw and examined the patient. I verified all cunha points and agree with Marlen Sanders PA-C with the following exceptions and/or additions: 61 year old male with esophageal cancer. Present with chest pain when eating but also after lifting a heavy gate on Sunday. O/E HS1+2, no murmurs, no reproducibility of central chest pain on palpation. Mild pain on palpation over mid central thoracic spine, Abdo SNT A/P Chest pain - concerning history with food association and CT findings of esophageal in origin. NPO. Consult GI to consider EGD. Fortunately no hemoptysis. Focal destructive change T5 and T6 - potentially correlates with lifting heavy gate causing a fracture but concerning for extension of esophageal cancerSome focal tenderness in this region but no reproducibility of central chest pain goes against this being the cause of his chest pain despite good correlation with his history. Acute confusion - increased confusion, especially while in the ER. I suspect this is due to metoclopramide and diphenhydramine given on top of his usual morphine. unable to confirm whether patient has . If persistent consider CT head. PG Care Time/CCT Total # of Minutes Spent Total Time Spent with Patient: Total time spent is greater than 50% in coordination of care (as documented) at patient's floor/unit and/or counseling patient: Coding Level of Care Code 46248 Initial Inpt Care Lvl 3 Diagnoses Hypomagnesemia E83.42 Hypokalemia E87.6 Esophageal cancer C15.9 Malignant neoplasm of esophagus location: unspecified location Atrial fibrillation I48.91 Epigastric abdominal pain R10.13 (1) Esophageal cancer Malignant neoplasm of esophagus location: unspecified location Qualified Code(s): C15.9 - Malignant neoplasm of esophagus, unspecified
--- NOTE | 2021-10-13 16:36 | Gastrointestinal Consultation ---
Date of Consultation October 13, 2021 Assessment & Plan (1) Chest pain not due to acute coronary syndrome: (2) Esophageal cancer: Pt is a 61 yo male w hx of esophageal ca s/p esophageal stent placement x 2, completed chemo and XRT in Jul 2021, who presented w c/o sternal CP, and n/v started on Sunday when he lifted a heavy gate. CT chest/abd/pelvis showed esophageal stent in good position w some soft tissue stranding. ? focal invasion of tumor vs osteomyelitis on T5,6 areas. Unclear source of his sternal chest pain - cardiac etiology ruled out, ? MSK vs esophagitis, tumor obstruction though he denies dysphagia or odynophagia. - NPO to prevent aspiration; fluid in esophagus is noted on CT - IVF support - PPI IV BID - Plan for EGD eval tomorrow in OR w intubation, by Dr. Persaud Supervising Physician Co-Signing Physician Notes Attg add: I interviewed and examined pt, reviewed chart and labs. Pt with chest pain, thought to be related to ? vertebral fracture, possibily malignant. CT also shows ? tumor ingrowth into stent, esophagus full of food/fluid. Plan EGD - possible stent, ? APC. Of note, pt does not want PEG. History of Present Illness Reason for Consultation: Chest Pain Requesting Physician: Dr. Yang Lawrence Attending Physician: Dr. Marina Persaud History of Present Illness Pt is a 61 yo male w hx of Afib on Eliquis, GERD, esophageal ca s/p esophagus stent placements who presented to ED w co chest pain. He was lifting a heavy gate on Sunday and had sharp mid chest pain. Had 2 episodes of nausea and vomiting afterwards w/o coffee ground emesis or hematemesis. No changes in bowel habits or stool colors. Since then he has poor appetite but was able to tolerate solids, including cereal last evening. He denies any painful or burning sensation when swallowing. He hadn't been taking his PPI regularly at home until 1.5 weeks ago when advised by Heme/Onc. He completed chemo and XRT for his cancer Jun-Jul 2021. Labs reviewed. Normal Troponin noted. CT chest/abd/pelvis showed 2 esophageal stents in mid/distal esophagus in good position, circumferential thickening of esophageal wall proximal to stent w paraesophageal soft tissue stranding. There was also a note of possible focal infection w erosion of T5, 6 - osteomyelitis vs tumor invasion. EGDs 02/2021 when initial esophageal stent placed. Repeat 05/09/2021 showed tumor ingrowth in stent and another stent was placed within original one. Allergies Allergy/AdvReac Type Severity Reaction Status Date / Time No Known Drug Allergies Allergy Verified 10/13/21 11:09 Home Medications Medication Instructions Recorded Confirmed Type ondansetron HCl 8 mg tablet 8 mg PO DAILY 03/05/21 10/13/21 History oxaliplatin 200 mg/40 mL 400 mg IV Q14D #0 03/05/21 10/13/21 History intravenous solution pantoprazole 40 mg tablet,delayed 40 mg PO QAM #30 tab 03/06/21 10/13/21 Rx release ferrous gluconate 225 mg (27 mg 225 mg PO DAILY 05/24/21 10/13/21 History iron) tablet (Fergon) apixaban 2.5 mg tablet (Eliquis) 2.5 mg PO BID 07/21/21 10/13/21 History morphine 15 mg tablet,extended 15 mg PO BID 10/13/21 10/13/21 History release morphine concentrate 100 mg/5 mL 20 mg PO Q4H PRN 10/13/21 10/13/21 History (20 mg/mL) oral solution Patient History Medical History (Updated 10/14/21 @ 11:47 by Angelo Cueva MD) Atrial fibrillation Chest pain not due to acute coronary syndrome Esophageal bleeding Esophageal cancer (03/2020) esophageal stent GERD (gastroesophageal reflux disease) History of chemotherapy DCF 06/01-08/01 Xeloda 10/31-03/02 Hx of benign neoplasm of colon LVH (left ventricular hypertrophy) Mitral regurgitation Obesity Pancytopenia due to antineoplastic chemotherapy Surgical History H/O thumb surgery Left History of bilateral cataract extraction History of colonoscopy History of endoscopy EUS 05/05/20 @ [facility] 05/09/2021 Dr. Ilia Melchor + stent placement History of esophagogastroduodenoscopy (EGD) 09/02/20 @ [facility] History of tooth extraction partial upper and lower History of vascular access device A port left side of chest S/P cataract surgery R/L Family History Mother Diabetes Father Asthma Other No family history of adverse response to anesthesia Denies family history of Ovarian cancer Prostate cancer Myocardial infarction Breast cancer Colorectal cancer Social History Smoking Status: Never smoker Second Hand Exposure: No; Hx Alcohol Use: No Hx Substance Use: No Preferred Language: Romansh Communication Ability: Effective Visual Impairment: No Limitations Hearing Ability: Normal Fitness Assistant Required: No Beliefs That Will Affect Care: None marital status: Current Living Situation: Spouse current occupational status: employed 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 [employer] How many Children do You have: 3 How many Children do You have Comment: daughters Tahmina and Jannet, employed @ [employer] Feels Safe at Home: Yes Childhood Exposure to Second-Hand Smoke: No caffeine: Yes (coffee 2-3 cups per am) during the past year weight has: increased > 10 lbs Dental Care, Regularly: Yes Physical Activity Frequency: Daily Seatbelt Use: always Sunscreen Use: No Assistive Devices: Glasses Review of Systems Review of Systems: All systems reviewed & are unremarkable except as noted in HPI & below Physical Exam Constitutional: WD/WN, vitals as above well groomed, cooperative and comfortable Eyes: PERRL, conjunctivae normal, anicteric sclerae ENMT: external ear and nose normal, oropharynx normal Respiratory: normal respiratory effort, lungs clear to auscultation Cardiovascular: RRR, no murmur, no edema Gastrointestinal (Abdomen): normal bowel sounds, soft, nontender, no hepatosplenomegaly Musculoskeletal: TTP on sternal area Skin: no rashes, warm and dry no jaundice Psychiatric: A+Ox3, euthymic affect Lymphatic: no lymphedema Results & Data ([facility]) Vital Signs (Past 12 Hours) Vital Signs Temp Pulse Pulse Resp BP BP Pulse Ox 10/13/21 15:24 37 C 66 18 99/70 L 96 10/13/21 13:30 65 19 110/73 100 10/13/21 13:12 66 20 93/69 L 98 10/13/21 12:09 72 20 103/71 98 10/13/21 10:29 36.4 C L 77 18 104/79 99
[2021-10-13] MEDS ORDERED: POLYETHYLENE (MIRALAX) 17 GM PACK PO PRN (16:55)
[2021-10-13] MEDS ORDERED: ONDANSETRON INJ 2 MG/ML 2 ML VIAL IV PRN (16:55)
[2021-10-13] MEDS: ACETAMINOPHEN 325 MG TAB PO PRN (20:22)
[2021-10-13] MEDS ORDERED: HYDROmorphone INJ 0.5 MG/0.5 ML SYR IV STA (22:22)
[2021-10-13] MEDS: PANTOprazole 40 MG in SYRINGE 0 ML IV SCH (22:37)
[2021-10-13] MEDS: MoRPHine SULFATE CR 15 MG TABCR PO SCH (22:37)
[2021-10-13] MEDS: APIXABAN 2.5 MG TAB PO SCH (22:38)
[2021-10-13 23:05] LABS: Hematocrit (blood only) 27.8 % (42-52)
[2021-10-14] MEDS ORDERED: HEPARIN 100 UNIT/ML 5ML FLUSH FLUSH PRN (00:17)
--- NOTE | 2021-10-14 06:08 | Electrocardiogram Report ---
Test Reason : Blood Pressure : / mmHG Vent. Rate : 074 BPM Atrial Rate : 074 BPM P-R Int : 154 ms QRS Dur : 096 ms QT Int : 404 ms P-R-T Axes : 041 -26 011 degrees QTc Int : 448 ms Poor data quality, interpretation may be adversely affected Normal sinus rhythm Normal ECG When compared with ECG of 20-AUG-2020 06:46, Sinus rhythm has replaced Atrial fibrillation Vent. rate has decreased BY 41 BPM Confirmed by Art Lyons ([id number]) on 10/14/2021 6:07:35 AM Referred By: SELF Confirmed By:Art Lyons
[2021-10-14] MEDS: ACETAMINOPHEN 325 MG TAB PO PRN (06:11)
[2021-10-14 06:13] LABS: Basophils # (auto) 0.01 K/uL (0-0.2); Basophils % (auto) 0.2 %; Eosinophils # (auto) 0.12 K/uL (0-0.5); Hematocrit (blood only) 28.1 % (42-52); Hemoglobin 9.1 g/dL (14.0-18.0); Immature Granulocytes # (auto) 0.01 K/uL (0.00-0.02); Immature Granulocytes % (auto) 0.2 %; Lymphocytes # (auto) 0.48 K/uL (1.2-3.4); Mean Corpuscular Hemoglobin 24.8 pg (25-34); Mean Corpuscular Hgb Conc 32.4 g/dL (32-36); Mean Corpuscular Volume 76.6 fL (80-100); Mean Platelet Volume 9.5 fL (7.4-10.4); Monocytes # (auto) 0.92 K/uL (0.11-0.59); Monocytes % (auto) 15.3 %; Neutrophils # (auto) 4.47 K/uL (1.4-6.5); Neutrophils % (auto) 74.3 %; Platelet Count 333 K/uL (130-400); RDW Coefficient of Variation 15.5 % (11.5-14.5); RDW Standard Deviation 43.9 fL (36.4-46.3); Red Blood Count 3.67 M/uL (4.7-6.1); White Blood Count 6.01 K/uL (4.8-10.8)
[2021-10-14] MEDS ORDERED: HYDROmorphone INJ 0.5 MG/0.5 ML SYR IV PRN ×2 (06:19→11:32)
[2021-10-14 06:35] LABS: Anion Gap 6 (3-11); BUN Creatinine Ratio 10.3 (10-20); Blood Urea Nitrogen 4 mg/dl (6-23); Calcium 8.1 mg/dl (8.5-10.1); Carbon Dioxide 24 mmol/L (21-32); Chloride 104 mmol/L (98-107); Est GFR (African American) > 150.0 ml/min; Est GFR (Non-African American) 130.5 ml/min; Glucose 97 mg/dl (70-99(Fasting)); Magnesium 1.7 mg/dl (1.7-2.4); Potassium 3.4 mmol/L (3.5-5.1); Sodium 134 mmol/L (136-145)
--- NOTE | 2021-10-14 08:49 | Anesthesiology Consultation ---
Date of Service October 14, 2021 Assessment & Plan (1) Encounter for pre-operative examination: Chart Review Chart Review: Acceptable Risk for Surgery History Surgery Operation Date: 10/14/21 07:00 Proposed Procedures p Esophagogastroduodenoscopy - Marina Persaud MD Operation Date: 10/14/21 16:30 Proposed Procedures p Esophagogastroduodenoscopy Dr Anderson - Marina Persaud MD Height/Weight Height: 5 ft 10 in Weight: 77.1 kg Allergies Allergy/AdvReac Type Severity Reaction Status Date / Time No Known Drug Allergies Allergy Verified 10/13/21 11:09 Medications Home Medications Medication Instructions Recorded Confirmed Last Taken ondansetron HCl 8 mg tablet 8 mg PO DAILY 03/05/21 10/13/21 Unknown oxaliplatin 200 mg/40 mL 400 mg IV Q14D #0 03/05/21 10/13/21 03/01/21 intravenous solution pantoprazole 40 mg tablet,delayed 40 mg PO QAM #30 tab 03/06/21 10/13/21 10/12/21 release ferrous gluconate 225 mg (27 mg 225 mg PO DAILY 05/24/21 10/13/21 10/12/21 iron) tablet (Fergon) apixaban 2.5 mg tablet (Eliquis) 2.5 mg PO BID 07/21/21 10/13/21 10/12/21 morphine 15 mg tablet,extended 15 mg PO BID 10/13/21 10/13/21 Unknown release morphine concentrate 100 mg/5 mL 20 mg PO Q4H PRN 10/13/21 10/13/21 Unknown (20 mg/mL) oral solution Active Medications Generic Name Dose Route Start Last Admin Trade Name Freq PRN Reason Stop Dose Admin Acetaminophen 650 mg 10/13/21 16:55 10/14/21 06:11 Acetaminophen 325 Mg Tab PO 11/12/21 16:54 650 mg Q4H PRN Administration Pain or Fever Apixaban 2.5 mg 10/13/21 21:00 10/13/21 22:38 Apixaban 2.5 Mg Tab PO 11/12/21 20:59 Not Given BID MARIA Heparin Sodium (Porcine) 5 ml 10/14/21 00:17 10/14/21 06:11 Heparin 100 Unit/Ml 5ml Flush FLUSH 11/13/21 00:16 5 ml PRN PRN Administration Flush Hydromorphone HCl 0.25 mg 10/14/21 06:19 10/14/21 06:34 Hydromorphone Inj 0.5 Mg/0.5 Ml Syr IV 10/28/21 06:18 0.25 mg Q6H PRN Administration Pain Pantoprazole Sodium 40 mg/ 10 mls @ 5 mls/min 10/13/21 21:00 10/13/21 22:37 Syringe IV 11/12/21 20:59 5 mls/min BID MARIA Administration Morphine Sulfate 15 mg 10/13/21 21:00 10/13/21 22:37 Morphine Sulfate Cr 15 Mg Tabcr PO 10/27/21 20:59 15 mg BID MARIA Administration Past Medical History Medical History (Updated 10/14/21 @ 08:46 by Rayo Pisano MD) Atrial fibrillation Esophageal bleeding Esophageal cancer (03/2020) esophageal stent GERD (gastroesophageal reflux disease) History of chemotherapy DCF 06/01-08/01 Xeloda 10/31-03/02 Hx of benign neoplasm of colon LVH (left ventricular hypertrophy) Mitral regurgitation Obesity Pancytopenia due to antineoplastic chemotherapy Past Family History Family History Mother Diabetes Father Asthma Other No family history of adverse response to anesthesia Denies family history of Ovarian cancer Prostate cancer Myocardial infarction Breast cancer Colorectal cancer Past Surgical History Surgical History H/O thumb surgery Left History of bilateral cataract extraction History of colonoscopy History of endoscopy EUS 05/05/20 @ [facility] 05/09/2021 Dr. Ilia Melchor + stent placement History of esophagogastroduodenoscopy (EGD) 09/02/20 @ [facility] History of tooth extraction partial upper and lower History of vascular access device A port left side of chest S/P cataract surgery R/L Social History Smoking Status: Never smoker Hx Alcohol Use: No alcohol intake frequency: holidays/special occasions only Hx Substance Use: No substance use type: does not use Physical Exam Vital Signs Last Vital Signs Temp 37 C 10/14/21 07:38 Pulse 79 10/14/21 07:38 Resp 19 10/14/21 07:38 BP 110/69 10/14/21 07:38 Pulse Ox 96 10/14/21 07:38 Testing Laboratory Results 10/14/21 05:57 10/14/21 05:57 Electrocardiogram Date: 10/13/21 Findings: + NSR @ (74) Chest X-Ray Date: 10/13/21 Findings: + NAD port in place, "esophageal stent appears to be in good position" Echocardiogram Date: 08/20/20 EF: 50-55% LV Function: normal Valvular Disease: + MR (mild)
[2021-10-14] MEDS ORDERED: PANTOprazole 40 MG TAB PO SCH (09:00)
[2021-10-14] MEDS: POTASSIUM CHLORIDE / WTR 10 MEQ/100 ML PLCT IV SCH ×2 (09:15→10:22)
[2021-10-14] MEDS: MAGNESIUM SULFATE / D5W 1 GM/100 ML BAG IV SCH ×2 (09:15→11:28)
[2021-10-14] MEDS: LACTATED RINGER'S 1,000 ML IV SCH ×2 (09:16→19:17)
[2021-10-14] MEDS: APIXABAN 2.5 MG TAB PO SCH ×2 (10:13→21:46)
[2021-10-14] MEDS: MoRPHine SULFATE CR 15 MG TABCR PO SCH ×2 (10:14→21:46)
[2021-10-14] MEDS: FERROUS GLUCONATE 324 MG TAB PO SCH (10:14)
[2021-10-14] MEDS: PANTOprazole 40 MG in SYRINGE 0 ML IV SCH ×2 (10:22→21:46)
--- NOTE | 2021-10-14 11:27 | Radiation OncologyConsultation ---
Date of Consultation October 14, 2021 History of Present Illness Reason for Consultation: Onset of Moderate to severe back pain. Requesting Physician: Dr. Lawrence Attending Physician: Yang Lawrence MD History of Present Illness 03/2020. Patient started to develop dysphagia. Patient noted 20 pound weight loss over the last several months. 04/27/2020. Upper endoscopy by Dr. Gomez. Findings include a large fungating and ulcerating mass with bleeding and stigmata of recent bleeding from the distal esophagus, 35 cm from the incisors. The mass was partially obstructing and partially circumferential. Biopsies obtained. 04/27/2020. Esophagus, mass, biopsy: Invasive moderately differentiated adenocarcinoma. HER-2 indeterminate by FISH. 04/30/2020. CT of abdomen/pelvis. IMPRESSION: IMPRESSION: Distal esophageal mass consistent with the known primary tumor, better depicted on the chest CT. Please see that report for further description. Several adjacent pathologic paraesophageal lymph nodes. Several pathologic gastrohepatic ligament lymph nodes. No additional sites of metastatic disease within the abdomen or pelvis. No liver metastases. 04/30/2020. CT of chest. IMPRESSION: 1. Moderate irregular thickening within the distal 6 cm of the esophagus likely representing an esophageal mass. This results in dilatation and partial obstruction of the proximal to mid esophagus. 2. Multiple enlarged and necrotic distal paraesophageal and gastrohepatic lymph nodes. This is suspicious for metastatic disease. 3. A few scattered subcentimeter subpleural nodules within the lungs as described above. These are likely benign given the subpleural location. However, follow-up recommended to ensure stability and exclude the less likely possibility of metastatic disease. 4. Please refer to the same day abdomen and pelvis CT for further evaluation of the abdominal structures. 05/05/2020. Upper EUS by Dr. Melchor. Impression: A mass was found in the middle third of the esophagus and in the lower third of the esophagus. Ultrasound [id number]. Of note, esophageal stent placed. 05/06/2020. Medical oncology consultation with Dr. Kenrick Villatoro. Recommendations include consideration of preoperative chemotherapy and radiation therapy. Recommendations include completion of staging work-up with PET/CT scan. 05/12/2020. PET/CT. IMPRESSION: 1. FDG uptake associated with the patient's known distal esophageal mass. Interval stenting within the distal esophagus which appears in good position. This results in decompression of the dilated proximal esophagus. 2. FDG avid distal paraesophageal and gastrohepatic lymph nodes consistent with metastatic disease. 3. Single FDG avid left supraclavicular lymph node and upper left paratracheal lymph node consistent with metastatic disease. 4. A few subcentimeter indeterminate pulmonary nodules which are better appreciated on the recent chest CT. These do not demonstrate abnormal FDG uptake but are likely below the threshold for PET imaging. 5. Acute diverticulitis within the descending colon. This finding was called/faxed to the referring physician following dictation. 05/14/2020. Radiation oncology consultation. Recommendation was for biopsy of left supraclavicular lymph node and discussion of case with medical oncology. 05/18/2021. Lymph node, left supraclavicular region. Metastatic adenocarcinoma consistent with invasive moderately differentiated adenocarcinoma of the distal esophagus. HER-2 negative. 06/02/2020 to 07/2020. Docetaxel, cisplatin, 5-fluorouracil chemotherapy. Under the supervision of Dr. Kenrick Villatoro. 10/11/2020. PET/CT. IMPRESSION: 1. Decreased size and hypermetabolic activity of the known distal esophageal neoplasm along with interval removal of the esophageal stent. 2. Interval development of prominent nonenlarged and mildly hypermetabolic right axillary chain lymph nodes which appear atypical for metastatic disease and may be reactive. Attention at follow-up recommended. 3. No additional hypermetabolic adenopathy within the chest, abdomen or pelvis. 4. Tiny subcentimeter low suspicion solid pulmonary nodules are better character ized on comparison chest CT and are too small for PET characterization. 5. Resolution of the previously noted pleural effusions. 6. Additional findings as above. 10/25/2020 to 02/2021. Xeloda maintenance. Under the supervision of Dr. Kenrick Villatoro. 01/19/2021. Gastroesophageal junction biopsy. No diagnostic evidence of dysplasia or malignancy identified. Esophagus, nodule, biopsy: No diagnostic evidence of neoplasm identified. 02/04/2021. CT IMPRESSION: 1. 26 mm rim-enhancing left supraclavicular mass with infiltration of surrounding fat. The findings are suspicious for a necrotic lymph node, although an abscess could appear similar. Clinical correlation advocated.neck. 02/04/2021. CT chest. IMPRESSION: 1. Wall thickening involving the distal third of the esophagus redemonstrated corresponding with the patient's known distal esophageal neoplasm. There is a new 2.0 cm hypodense lesion noted involving the posterior wall of the distal esophagus. 2. Necrotic pathologically enlarged left supraclavicular lymph node with adjacent inflammatory stranding is suggestive of metastasis. 3. Small cluster of solid pulmonary nodules within the basal left lower lobe measure up to 6 mm are new from comparison. These would favor an infectious or inflammatory etiology, however attention at follow-up is recommended to exclude neoplasm. 4. Additional findings as above. 02/04/2021. CT of abdomen/pelvis. IMPRESSION: 1. Interval resolution of the left pleural effusion. Cluster of the irregular nodules within left costophrenic angle which could represent postinfectious/inflammatory etiology or neoplasm. Short-term follow-up with CT of the chest in 4-6 weeks is recommended to document resolution. 2. Asymmetrical thickening of the distal esophageal wall. Interval removal of esophageal stent. 3. Interval worsening of retroperitoneal lymphadenopathy is concerning for progression of neoplastic process. 03/01/2021 to current (05/24/2021). Modified FOLFOX 6 chemotherapy. Received 7/ cycles. Underneath supervision of Dr. Kenrick Villatoro. 05/06/2021. CT of chest. IMPRESSION: 1. Distal esophageal stent in place, as described above. Tumor extends proximal to the stent resulting in esophageal narrowing. Apparent tumor ingrowth within the proximal aspect of the stent. Mildly dilated, fluid-filled esophagus. 2. Slight increase in size of a distal paraesophageal lymph node which is likely pathologic. Left supraclavicular lymphadenopathy which is either unchanged or slightly increased since prior exam. 05/09/2021. Esophageal stent exchange by Dr. Ilia Melchor. Dr. Melchor was unabl e to remove the previous stent due to tumor invasion into stent in place new stent within old stent. 05/16/2021. PET/CT. IMPRESSION: 1. Esophageal stent with surrounding FDG uptake may represent primary malignancy and/or reactive changes to the stent. Gastric focus of uptake is favored to represent reactive changes at the inferior outlet of the stent. 2. Left lower cervical lymph node with avid FDG uptake and a hypodense center which may represent necrosis. 3. FDG avid retroperitoneal lymph node. 05/20/2021. Medical oncology follow-up with Dr. Kenrick Villatoro. Recommendation is for radiation oncology referral to discuss potential palliative radiation therapy with chemotherapy due to poor response to systemic chemotherapy. Allergies Allergy/AdvReac Type Severity Reaction Status Date / Time No Known Drug Allergies Allergy Verified 10/13/21 11:09 Home Medications Medication Instructions Recorded Confirmed Type ondansetron HCl 8 mg tablet 8 mg PO DAILY 03/05/21 10/13/21 History oxaliplatin 200 mg/40 mL 400 mg IV Q14D #0 03/05/21 10/13/21 History intravenous solution pantoprazole 40 mg tablet,delayed 40 mg PO QAM #30 tab 03/06/21 10/13/21 Rx release ferrous gluconate 225 mg (27 mg 225 mg PO DAILY 05/24/21 10/13/21 History iron) tablet (Fergon) apixaban 2.5 mg tablet (Eliquis) 2.5 mg PO BID 07/21/21 10/13/21 History morphine 15 mg tablet,extended 15 mg PO BID 10/13/21 10/13/21 History release morphine concentrate 100 mg/5 mL 20 mg PO Q4H PRN 10/13/21 10/13/21 History (20 mg/mL) oral solution Patient History Medical History (Updated 10/14/21 @ 11:47 by Angelo Cueva MD) Atrial fibrillation Chest pain not due to acute coronary syndrome Esophageal bleeding Esophageal cancer (03/2020) esophageal stent GERD (gastroesophageal reflux disease) History of chemotherapy DCF 06/01-08/01 Xeloda 10/31-03/02 Hx of benign neoplasm of colon LVH (left ventricular hypertrophy) Mitral regurgitation Obesity Pancytopenia due to antineoplastic chemotherapy Surgical History H/O thumb surgery Left History of bilateral cataract extraction History of colonoscopy History of endoscopy EUS 05/05/20 @ [facility] 05/09/2021 Dr. Ilia Melchor + stent placement History of esophagogastroduodenoscopy (EGD) 09/02/20 @ [facility] History of tooth extraction partial upper and lower History of vascular access device A port left side of chest S/P cataract surgery R/L Family History Mother Diabetes Father Asthma Other No family history of adverse response to anesthesia Denies family history of Ovarian cancer Prostate cancer Myocardial infarction Breast cancer Colorectal cancer Social History (Reviewed 10/13/21 @ 17:43 by KYLE Saldivar Smoking Status: Never smoker Second Hand Exposure: No; Hx Alcohol Use: No Hx Substance Use: No Preferred Language: Tuvaluan Communication Ability: Effective Visual Impairment: No Limitations Hearing Ability: Normal Ruby Engineer Required: No Beliefs That Will Affect Care: None marital status: Current Living Situation: Spouse current occupational status: employed 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 [employer] How many Children do You have: 3 How many Children do You have Comment: daughters Tahmina and Jannet, employed @ [employer] Feels Safe at Home: Yes Childhood Exposure to Second-Hand Smoke: No caffeine: Yes (coffee 2-3 cups per am) during the past year weight has: increased > 10 lbs Dental Care, Regularly: Yes Physical Activity Frequency: Daily Seatbelt Use: always Sunscreen Use: No Assistive Devices: None Physical Exam Constitutional: Patient is well developed but complaining of low but steady weight loss due to difficulty eating from loss of appetite and loss of taste. Patient is cooperative presently not in pain due to pain medication. Eyes: PERRL, conjunctivae normal, anicteric sclerae ENMT: external ear and nose normal, oropharynx normal Neck: There is no palpable cervical or supraclavicular adenopathy appreciated. Respiratory: Normal respiratory effort. Cardiovascular: There is mild tenderness over the mid thoracic spine. Results (Rad Onc) Assessment: Ms. 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 Presenting PET CT scan revealed a left supraclavicular lymph node. Dr. Kenrick Villatoro from medical oncology obtained an FNA which was positive and the patient was noted to have near complete occlusion and a stent was placed. Dr. Villatoro was considering weekly Paciletaxel/carboplatin along with local radiation. In discussion with radiation oncology the decision was made to initiate treatment with systemic chemotherapy with DCF modified protocol (docetaxel, cisplatin and 5 fluorouracil). Patient did not tolerate treatment well with continuing difficulty maintaining his weight due to change in appetite and taste. Ultimately the decision was made to proceed with combined chemoradiation for palliation. The radiation was begun on June 15, 2021 and stopped prematurely on July 15, 2021 at the patient's request due to poor tolerance of treatment. He did receive a total of 22 out of a planned 25 fractions. Patient continued having pain taking MS Contin at bedtime and liquid morphine during the day for retrosternal discomfort due to the stent. Chemotherapy was held and a repeat PET scan performed showing an esophageal stent in unchanged position with persistent FDG activity within and surrounding the stent which is nonspecific. Upper abdominal and retroperitoneal lymphadenopathy has moderately progressed compared to prior study of May with nodes having increased in both size and FDG uptake. A left cervical chain node had decreased in size and FDG avid activity. There is no persistent pathologically enlarged or FDG avid mediastinal lymph nodes and no obvious evidence of bony metastatic disease. CT scan of the abdomen and pelvis from 10/13/2021 showed 2 esophageal stents in good position with circumferential thickening of the esophageal wall. There was interval development of a small focal erosion within the anterior T5 and T6 vertebral bodies measuring up to 5 mm. These are highly suspicious for tumor invasion from adjacent mid esophageal mass with focal destructive changes in the anterior T5 and T6 vertebral body. Increase in the size of the left supra clavicle lymph node with no evidence of hepatic metastasis or abdominal or pelvic adenopathy. Patient had acute onset of chest pain more on the right than left starting yesterday and has been admitted for further evaluation. Patient is scheduled for an EGD. Treatment Options: 1. Continued pain medication as appropriate. 2. Evaluation of the role of systemic therapy per Dr. Kenrick Villatoro. 3. See no role for palliative radiation at this time. Recommendations: If the patient's pain is not except plain on findings from the EGD and MRI of the thoracic spine would be reasonable to rule out other bony causes of his chest pain. Plan: 1. EGD scheduled. 2. MRI of the thoracic spine if appropriate. 3. Systemic therapy as recommended by Dr. Kenrick Villatoro. 4. There is no role for radiation at this time unless MRI of the thoracic spine shows additional causes of progressive disease and pain.. [] Additional Studies Date of Service: 08/02/2021 Patients Name: REANNA Mac MILEY HuffB: 1960 MR#: [id number] Diagnosis: C15.5 - Malignant neoplasm of lower third of esophagus, Diagnosed 04/27/2020 (Active) Stage III, T3, N2, M0, G2 Site: Esophagus & Left Neck Technique: VMAT Energy: 6X Fractions: 22 Daily Dose: 180 cGy Total Dose: 3960 cGy Treatment Dates: 06/15/2021 - 07/15/2021 Elapsed Days: 30 Do documented final doses agree with prescribed doses? If not, explain: The prescription was for 25 fractions. Treatment was stopped early at the patient's request. Is patients chart complete and accurate?YES Time Spent Attending This documentation has been prepared in full by Dr. Cueva. I have personally reviewed the services described and have reviewed the documentation to ensure its accuracy. I spent 20 minutes with direct face to face interaction with the patient which included obtaining clinical information, recommending a plan of action and answering questions. I spent 30 minutes reviewing his charts, reviewing his scans with radiology, discussing case with hospitalist and preparation of this document. JOVITA
[2021-10-14] MEDS ORDERED: HYDROmorphone INJ 0.5 MG/0.5 ML SYR ONE (11:37)
[2021-10-14] MEDS ORDERED: SUCCINYLCHOLINE CHLORIDE 20 MG/ML 10 ML VIAL IV ONE (15:26)
[2021-10-14] MEDS ORDERED: PROPOFOL IV EMULSION 10 MG/ML 20 ML VIAL IV ONE (15:26)
[2021-10-14] MEDS ORDERED: ATROPINE SULFATE 0.1 MG/ML 10ML SYR IV PRN (15:51)
[2021-10-14] MEDS ORDERED: ePHEDrine sulfate 50 MG/ML AMP IV PRN (15:51)
[2021-10-14] MEDS ORDERED: fentaNYL citrate 100 MCG/2 ML VIAL IV PRN (15:51)
[2021-10-14] MEDS ORDERED: ONDANSETRON INJ 2 MG/ML 2 ML VIAL IV PRN (15:51)
[2021-10-14] MEDS ORDERED: LABETALOL HCL IV 5 MG/ML 20ML IV PRN (15:51)
[2021-10-14] MEDS ORDERED: NALOXONE HCL 0.4 MG/1 ML VIAL/CARP IV PRN (15:51)
[2021-10-14] MEDS ORDERED: PROMETHAZINE HCL 12.5 MG in SODIUM CHLORIDE 0.9% 50 ML IV PRN (15:51)
[2021-10-14] MEDS ORDERED: FLUMAZENIL 0.1 MG/1 ML 10 ML VIAL IV PRN (15:51)
--- NOTE | 2021-10-14 16:08 | History & Physical Bridge Note ---
Date of Service October 14, 2021 History & Physical Bridge Note I have examined the patient, reviewed the History & Physical and in the interval since the performance of the History & Physical I have noted the following changes of clinical significance: no changes noted
[2021-10-14] MEDS ORDERED: fentaNYL citrate 100 MCG/2 ML VIAL ONE (16:12)
[2021-10-14] MEDS ORDERED: ONDANSETRON INJ 2 MG/ML 2 ML VIAL ONE (16:21)
[2021-10-14] MEDS ORDERED: DEXAMETHASONE SOD INJ 4 MG/ML VIAL ONE (16:21)
[2021-10-14] MEDS ORDERED: LIDOCAINE 2% 2 ML VIAL/AMP(20MG/ML) INFIL ONE (16:24)
--- NOTE | 2021-10-14 17:09 | Anesthesiology Progress Note ---
Date of Service October 14, 2021 Anesthesia Post Procedure Vital Signs Vital Signs: Temp Pulse Pulse Pulse Resp BP BP 10/14/21 17:00 72 20 135/97 10/14/21 16:50 77 16 138/89 10/14/21 16:46 36.5 C 84 14 131/91 10/14/21 15:58 78 10/14/21 14:57 36.7 C 72 18 117/82 10/14/21 10:47 36.8 C 73 20 104/66 10/14/21 07:38 37 C 79 19 110/69 10/14/21 07:16 78 10/14/21 07:12 37.5 C 80 20 116/78 10/14/21 04:00 36.7 C 75 18 106/69 10/14/21 00:03 36.9 C 62 18 110/63 10/13/21 22:19 69 10/13/21 18:28 65 18 108/75 10/13/21 18:17 63 Pulse Ox 10/14/21 17:00 100 10/14/21 16:50 100 10/14/21 16:46 98 10/14/21 15:58 10/14/21 14:57 95 10/14/21 10:47 98 10/14/21 07:38 96 10/14/21 07:16 10/14/21 07:12 99 10/14/21 04:00 99 10/14/21 00:03 95 10/13/21 22:19 10/13/21 18:28 98 10/13/21 18:17 Pain Intensity Abdomen: Pain Intensity: 0 Transfer of Care Handoff Completed per policy Notes Mental Status: alert / awake / arousable Patient Amnestic to Procedure: Yes Nausea / Vomiting: adequately controlled Pain: adequately controlled Airway Patency, RR, SpO2: stable & adequate BP & HR: stable & adequate Hydration State: stable & adequate Anesthetic Complications: no major complications apparent
--- NOTE | 2021-10-14 18:52 | Hospitalist Progress Note ---
Date of Service October 14, 2021 Assessment & Plan (1) Epigastric abdominal pain: Plan: -In the setting of esophageal CA with local metastatic disease, brought on by heavy lifting on Sunday, with nausea and vomiting without hematemesis, and ? thoracic mets seen on chest CT. This pain unlikely to be cardiac in nature as it has persisted since Sunday, trop negative and EKG without any evidence of cardiac dz. Suspect pt may have fracture back Sunday when lifting, which is causing the pain felt in the chest. A PET scan on 09/26 did not show evidence of met dz to spine. CTAP did not otherwise show any acute process to cause abdominal pain. -Nausea and vomiting has resolved after receiving Pepcid, Benadryl, and Reglan in ED. Has also received IVF, initially borderline hypotensive with SBP in 90s, responding to fluids. -EGD -did not reveal cause of pain and suspected to be from thoracic spine -On discussion with Dr. Cueva earlier in the day will get MRI of thoracic spine to further assess this. (2) Hypomagnesemia: Plan: -EKG showed NSR. Mg 1.2 in ED, 4g ordered. -Repeat 1.7 and additional 2g given today -Repeat level in a.m. (3) Hypokalemia: Plan: IV supplementation given today. Continue to measure daily and replace as needed. (4) Esophageal cancer: Plan: -Metastatic/locally advanced gastroesophageal adenocarcinoma ([id number], stage IV.) Followed by Dr. Kenrick Villatoro with [facility] and Dr. Dominique Villatoro with [facility]. -S/p esophageal stents, last chemo and radiation tx July 2021. -Discussed case with Dr. Cueva prior to endoscopy (5) Atrial fibrillation: Plan: -Diagnosed during admission on in August 2020, was started on Eliquis and amiodarone; amiodarone has since been d/c'd. -Can now restart Eliquis post EGD Plan: -Continue on med/surg w/ tele. -SCDs, Eliquis for dvt ppx. -DNR/DNI. Admission and Anticipated Discharge Date Admission Date: October 13, 2021 Subjective Patient seen after endoscopy today. He reports tolerating liquid diet after this without worsening of his chest pain. Chest pain is still the and constant but relatively well-controlled on current medication. No shortness of breath. Review of Systems Review of Systems: All systems reviewed & are unremarkable except as noted in Subjective Physical Exam Constitutional: WD/WN, vitals as above Eyes: + anicteric sclerae; normal pupil size Respiratory: normal respiratory effort, lungs clear to auscultation Cardiovascular: RRR, no murmur, no edema Gastrointestinal (Abdomen): Inspection/Auscultation: normal bowel sounds Percussion/Palpation: abdomen soft; abdomen nontender, no guarding and abdomen not rigid Musculoskeletal: no cyanosis or clubbing, extremities motor strength 5/5 Skin: no rashes, warm and dry Neurologic: moves all extremities and awake; not confused Psychiatric: A+Ox3, euthymic affect Results & Data Results & Data ([facility]) Vital Signs (Past 12 Hours) Vital Signs Temp Pulse Pulse Pulse Resp BP BP 10/14/21 17:20 36.3 C L 73 20 124/84 10/14/21 17:10 78 18 128/84 10/14/21 17:00 72 20 135/97 10/14/21 16:50 77 16 138/89 10/14/21 16:46 36.5 C 84 14 131/91 10/14/21 15:58 78 10/14/21 14:57 36.7 C 72 18 117/82 10/14/21 10:47 36.8 C 73 20 104/66 10/14/21 07:38 37 C 79 19 110/69 10/14/21 07:16 78 10/14/21 07:12 37.5 C 80 20 116/78 Pulse Ox 10/14/21 17:20 98 10/14/21 17:10 99 10/14/21 17:00 100 10/14/21 16:50 100 10/14/21 16:46 98 10/14/21 15:58 10/14/21 14:57 95 10/14/21 10:47 98 10/14/21 07:38 96 10/14/21 07:16 10/14/21 07:12 99 PG Care Time/CCT Total # of Minutes Spent Total Time Spent with Patient: Total time spent is greater than 50% in coordination of care (as documented) at patient's floor/unit and/or counseling patient: Coding Level of Care Code 43246 Subseq Hosp Care Lvl 2 Diagnoses Epigastric abdominal pain R10.13 Hypomagnesemia E83.42 Hypokalemia E87.6 Esophageal cancer C15.9 Malignant neoplasm of esophagus location: unspecified location Atrial fibrillation I48.91 (1) Esophageal cancer Malignant neoplasm of esophagus location: unspecified location Qualified Code(s): C15.9 - Malignant neoplasm of esophagus, unspecified
--- NOTE | 2021-10-14 19:24 | Procedure Note ---
Procedure Note Date of Service October 14, 2021 Note EGD showed proximal esophagus mildly dilated. There was moderate narrowing at 25 cm likely due to submucosal invasion from tumor. Stents were at 28 cm, and widely patent without tumor ingrowth. There was an ulcer in the stomach fundus from the edge of the stent. Chest pain is likely related to thoracic mets. No significant esophageal obstruction. OK for full liquids, purees. Consider Marinol 2.5 BID for appetite, depression, pain. Coding
--- NOTE | 2021-10-14 20:26 | XRay Report ---
PROCEDURE: XR orbits for MRI CLINICAL HISTORY: Screening for foreign body for MRI. COMPARISON: None. FINDINGS: Elias and lateral views reveal no metallic orbital foreign bodies. The paranasal sinuses and the remainder of the facial structures are unremarkable. IMPRESSION: Negative pre-MRI screening orbits. ACT 112: Negative or not required by law. Electronically signed by: Kali Rubio M.D. 10/14/2021 8:25 PM
[2021-10-14] MEDS ORDERED: GADOBUTROL 65ML VIAL IV ONE (21:16)
--- NOTE | 2021-10-14 21:50 | Magnetic Resonance Report ---
MR thoracic spine wo/w con CLINICAL HISTORY: esophageal ca., thoracic involvement, ?OM/mets TECHNIQUE: Multiplanar sequences through the thoracic spine were obtained, without intravenous contra st. Comparison: Comparison is made to CT thorax 10/13/2021 FINDINGS: Exam is limited with motion. The alignment is anatomical. Degenerative changes are seen most prominent at T11-T12. There is a bro ad-based posterior disc bulge at this level with mild to moderate canal stenosis. Extensive osteophyt osis is seen. The spinal ligaments are intact, without evidence of disruption or abnormal signal intensity. The spi nal cord is normal in signal intensity and there is no evidence of cord contusion. There is no eviden ce of an extradural, intradural, extramedullary or intramedullary lesion. Partial visualization of es ophageal stent. There is T1 hypointensity with avid enhancement in T5 and T6 as well as the anterior aspect of the T4 vertebral body. There is associated T2 hyperintensity. No significant compression deformity is seen. There is suggestion of a 12 mm T2 hypointense lesion in the right aspect of the T5 vertebral body as well as a 15 mm T2 hypointense lesion in the left aspect of the T6 vertebral body. Minimal discontin uity of the anterior cortex is noted at T5 and T6, corresponding to erosion seen on prior CT. IMPRESSION: The entire vertebral bodies of T5 and T6 as well as the anterior aspect of T4 demonstrate T2 hyperint ensity, T1 hypointensity, and avid enhancement. These findings are compatible with post radiation yanna nges. T1 hypointense, hypoenhancing regions may represent osteonecrosis. Underlying metastatic diseas e is considered less likely due to the spatial distribution of these findings, however cannot be enti rely excluded. ACT 112: Negative or not required by law. Electronically signed by: Tl Rivera M.D. 10/14/2021 9:49 PM
[2021-10-15 06:07] LABS: Hemoglobin 9.6 g/dL (14.0-18.0); Immature Granulocytes # (auto) 0.01 K/uL (0.00-0.02); Immature Granulocytes % (auto) 0.2 %; Lymphocytes % (auto) 10.6 %; Mean Corpuscular Hemoglobin 24.5 pg (25-34); Mean Corpuscular Volume 76.5 fL (80-100); Monocytes # (auto) 0.62 K/uL (0.11-0.59); Neutrophils # (auto) 4.42 K/uL (1.4-6.5); Neutrophils % (auto) 78.2 %; Platelet Count 388 K/uL (130-400); RDW Coefficient of Variation 15.7 % (11.5-14.5); RDW Standard Deviation 44.2 fL (36.4-46.3); Red Blood Count 3.92 M/uL (4.7-6.1); White Blood Count 5.65 K/uL (4.8-10.8)
[2021-10-15 06:31] LABS: Anion Gap 6 (3-11); BUN Creatinine Ratio 11.4 (10-20); Blood Urea Nitrogen 4 mg/dl (6-23); C Reactive Protein 10.49 mg/dl (0-0.5); Calcium 8.9 mg/dl (8.5-10.1); Carbon Dioxide 26 mmol/L (21-32); Chloride 103 mmol/L (98-107); Creatinine Clr Calc Pharmacy 231.7 ml/min; Est GFR (African American) > 150.0 ml/min; Est GFR (Non-African American) 136.4 ml/min; Glucose 146 mg/dl (70-99(Fasting)); Potassium 3.7 mmol/L (3.5-5.1); Sodium 135 mmol/L (136-145)
[2021-10-15] MEDS: MoRPHine SULFATE CR 15 MG TABCR PO SCH (08:17)
[2021-10-15] MEDS: PANTOprazole 40 MG in SYRINGE 0 ML IV SCH (08:17)
[2021-10-15] MEDS: FERROUS GLUCONATE 324 MG TAB PO SCH (08:18)
[2021-10-15] MEDS: APIXABAN 2.5 MG TAB PO SCH (08:18)
[2021-10-15 08:30] LABS: Magnesium 1.8 mg/dl (1.7-2.4); Phosphorus 2.8 mg/dl (2.5-4.9)
[2021-10-15 11:38] VITALS: BP 125/84; TEMP 97.3; O2SAT 97
[2021-10-15] MEDS: ACETAMINOPHEN 325 MG TAB PO PRN (12:20)
--- NOTE | 2021-10-15 12:25 | Discharge Summary ---
Date of Service October 15, 2021 Admission HPI Per Admitting Provider Patient is a 61 /yo M with PMH esophageal CA and afibb who presents today with complaints of nausea and vomiting. Patient was lifting something Sunday when he experienced epigastric pain without radiation. The pain was moderate and steady, has been present since then without worsening. He has been feeling nauseous since the pain began and yesterday began vomiting, reports 1-2 episodes today and yesterday without blood seen. Due to this, patient has been struggling to keep up with po intake, otherwise denies fever/chills, fatigue, chest pain, back pain, palpitations, SOB, cough, hematemesis, melena, hematochezia, change to bowel movements. In ED, pt was mildly hypotensive with SBP mid 90s, otherwise VS stable and within normal limits. Labs remarkable for Hgb 10.0 (12.7 in February), Na 131, Mg 1.2 and K 3.3, otherwise labs unremarkable. CT of chest showed interval development of small focal erosions within the anterior T5 and T6 vertebral bodies measuring up to 5 mm, highly suspicious for tumor invasion from the adjacent mid esophagus with focal destructive change at the anterior T5 and T6 vertebral bodies. Also noted circumferential thickening of the esophageal wall within the mid to distal esophagus which includes the wall proximal to the esophageal stent where there is associated paraesophageal and paravertebral stranding/soft tissue. 2 esophageal stents within mid-distal esophagus in good p osition. CTAP without acute findings, no changes from PET/CT on 09/26. Patient received 1.5 L NS, Reglan, Benadryl, and Pepcid in ED, and 2 g of IV Mg was ordered. Hospitalist service was called for further evaluation and admission. During my encounter w/ patient, a discussion about code status occurred with patient and who was at the bedside. Patient stated he wishes to be DNR/DNI. Discharge Data Allergies Allergy/AdvReac Type Severity Reaction Status Date / Time No Known Drug Allergies Allergy Verified 10/13/21 11:09 Consultations 10/13/21 13:39 ED Decision to Admit Stat 10/13/21 14:23 Consult Gastroenterology Routine Consult Radiation Oncology Routine Procedures Performed Operation Date: 10/14/21 07:00 Actual Procedures p Esophagogastroduodenoscopy(Not Applicable) - Marina Persaud MD Operation Date: 10/14/21 16:30 <No data on this case meets the specified criteria> Ordered Studies 10/13/21 10:40 CT abd pelvis IV con only Stat CT chest diagnostic w con Stat 10/14/21 19:18 MR thoracic spine wo/w con Urgent Hospital Course (1) Epigastric abdominal pain: -In the setting of esophageal CA with local metastatic disease, brought on by heavy lifting on Sunday, with nausea and vomiting without hematemesis, and ? thoracic mets seen on chest CT. This pain unlikely to be cardiac in nature as it has persisted since Sunday, trop negative and EKG without any evidence of cardiac dz. Suspect pt may have fracture back Sunday when lifting, which is causing the pain felt in the chest. A PET scan on 09/26 did not show evidence of met dz to spine. CTAP did not otherwise show any acute process to cause abdominal pain. -Nausea and vomiting has resolved after receiving Pepcid, Benadryl, and Reglan in ED. Has also received IVF, initially borderline hypotensive with SBP in 90s, responding to fluids. -EGD -did not reveal cause of pain and suspected to be from thoracic spine -On discussion with Dr. Cueva earlier in the day will get MRI of thoracic spine to further assess this. (2) Hypomagnesemia: -EKG showed NSR. Mg 1.2 in ED, 4g ordered. -Repeat 1.7 and additional 2g given today -Repeat level in a.m. (3) Hypokalemia: IV supplementation given today. Continue to measure daily and replace as needed. 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 Kenrick Villatoro with [facility] and Dr. Dominique Villatoro with [facility]. -S/p esophageal stents, last chemo and radiation tx July 2021. -Discussed case with Dr. Cueva prior to endoscopy (5) Atrial fibrillation: -Diagnosed during admission on in August 2020, was started on Eliquis and amiodarone; amiodarone has since been d/c'd. -Can now restart Eliquis post EGD -Continue on med/surg w/ tele. -SCDs, Eliquis for dvt ppx. -DNR/DNI. Discharge Plan Discharge Items Patient Disposition: Home - Self-Care Reason For Visit: LOW MAGNESIUM, MET. ESPOHAGEAL CA Discharge Diagnosis: Chest pain Low magnesium levels Activity: Resume your previous activity Non-emergency contact: Oncologist Call non-emergency contact if: you have any medication questions and your symptoms worsen Follow-up/Referrals: Remedios Miranda DO [Primary Care Provider] - Kenrick Villatoro MD [Surgeon] - (Follow up thoracic spine MRI findings) Diet: Regular Addtl Attending Provider Instructions: You were admitted to [facility] from October 13 - 2021 due to nausea, vomiting and chest/epigastric pain. Normal troponin and ongoing chest pain effectively ruled out this is coming from your heart. Initial CT chest was concerning for paraesophageal and paravertebral stranding concerning for tumor invasion from the adjacent mid esophagus with focal destructive change at the anterior T5 and T6 vertebral bodies. However subsequent MRI suggested findings more consistent with post radiation changes. Recommend following up with your oncologist with the results of these. Blood cultures were taken due to possible concern of osteomyelitis (vertebra infection) however imaging findings and history make this a low possibility - these cultures are pending on discharge. EGD was undertaken due to possibly tumor invasion and concern pain was associated with swallowing. EGD showed proximal esophagus mildly dilated. Moderate narrowing at 25 cm likely due to submucosal invasion from tumor. Prior esophageal stents at 28 cm, and widely patent without tumor ingrowth. There was an ulcer in the stomach fundus from the edge of the stent.None if this was suspected t be causing your acute pain. Please take pantoprazole 40mg PO twice a day for 2 weeks then switch back to once daily dosing. Marinol prescribed to help with appetite. Given association with lifting a heavy object suspect your pain is related to the changes in your back and musculoskeletal pain. Please continue on your current pain regimen and follow up with your oncologist within the next week. Pending Studies at Discharge: Yes (blood cultures) Stand-Alone Forms: My [facility] [employer], Smoking Cessation Medications and DC Order Prescriptions: New magnesium oxide 400 mg (241.3 mg magnesium) tablet 400 mg PO BID Qty: 60 RF: 0 dronabinol 2.5 mg Capsule 2.5 mg PO BID Qty: 60 RF: 0 Continued Fergon 225 mg (27 mg iron) tablet 225 mg PO DAILY RF: 0 Eliquis 2.5 mg tablet 2.5 mg PO BID RF: 0 morphine concentrate 100 mg/5 mL (20 mg/mL) solution 20 mg PO Q4H PRN (Reason: Pain) RF: 0 morphine 15 mg Tablet Extended Release 15 mg PO BID RF: 0 ondansetron HCl 8 mg tablet 8 mg PO DAILY RF: 0 oxaliplatin 200 mg/40 mL Solution 400 mg IV Q14D Qty: 0 RF: 0 Changed pantoprazole 40 mg Tablet,Delayed Release (Dr/Ec) 40 mg PO BID Qty: 30 RF: 2 Discharge Orders: Discharge Order (Routine); Ordered 10/15/21 Ordered By: Yang Lawrence Admission Data Admit Date/Time: 10/13/21 13:57 Attending Provider: Yang Lawrence Admit Provider: Yang Lawrence Primary Care Provider: Remedios Miranda Other Providers: Yang Lawrence ; Ilia Melchor ; Dominique Villatoro Coding Diagnoses Epigastric abdominal pain R10.13 Hypomagnesemia E83.42 Hypokalemia E87.6 Esophageal cancer C15.9 Malignant neoplasm of esophagus location: unspecified location Atrial fibrillation I48.91
[2021-10-15 12:34] VITALS: PULSE 73
--- NOTE | 2021-10-23 19:33 | GI REPORT ---
Patient Name: Cody Kaur Procedure Date: 10/14/2021 2:14 PM Date of : 1960 Admit Type: Inpatient Age: 61 Gender: Male Attending MD: Marina Persaud MD Procedure: Upper GI endoscopy Providers: Marina Persaud MD Referring MD: Remedios Miranda, Yang Lawrence Md Indications: Dysphagia Medicines: See the Anesthesia note for documentation of the administered medications Complications: No immediate complications. Estimated Blood Loss: Estimated blood loss: none. Procedure: Pre-Anesthesia Assessment: - ASA Grade Assessment: III - A patient with severe systemic disease. After obtaining informed consent, the endoscope was passed under direct vision. Throughout the procedure, the patient's blood pressure, pulse, and oxygen saturations were monitored continuously. The Endoscope was introduced through the mouth, and advanced to the second part of duodenum. The upper GI endoscopy was accomplished without difficulty. The patient tolerated the procedure well. Findings: The proximal esophagus was mildly dilated. There was moderate narrowing at 25 cm likely due to submucosal invasion from tumor; this was not thought to be significant enough to require a stent. Stents were at 28 cm, and widely patent without tumor ingrowth. There was an ulcer in the stomach fundus from the edge of the stent. The remainder of the stomach and the duodenum were normal. Recommendation: - Discharge patient to floor. Garry Crespo MD 10/23/2021 7:32:36 PM This report has been signed electronically. Note Initiated On: 10/14/2021 2:14 PM Number of Addenda: 0 I attest to the content of the Intraoperative Record and orders documented therein, exceptions below {[id number]}
== END 2021-10-15 14:10 | disposition home or self-care (01) | DRG 375 ==
LOC: ED 10:19 → 2N 13:57